=== PATIENT | female | born 1955 | race Caucasian/White ===

== ENCOUNTER → 2020-12-09 12:58 | Outpatient (CLI) | payer OTHER, SELFPAY ==
--- NOTE | ~2020-12-09 | MM_ITS ---
EXAMINATION: MM screening [facility] BI w dominik HISTORY: Screening TECHNIQUE: Craniocaudal and mediolateral oblique 3-D tomosynthesis images were obtained and synthetic 2-D images were generated. CAD analysis was submitted and interpreted. COMPARISON: Comparison to multiple prior studies sequentially, with oldest reviewed study dated 12/01. BREAST PARENCHYMAL COMPOSITION: There are scattered areas of fibroglandular density. FINDINGS: There is no evidence of suspicious mass, calcification, or architectural distortion to sugg est malignancy in either breast. There has been no suspicious interval change. IMPRESSION: 1. No mammographic evidence of malignancy. 2. Recommend routine screening mammography in one year. BI-RADS Category 1: Negative Reviewed, dictated and finalized at location A. ESS PLACER
== END ==
DX: Z12.31 Encounter for screening mammogram for malignant neoplasm of breast (principal)
CPT/HCPCS: 77063; 77067

== ENCOUNTER → 2021-12-11 13:53 | Outpatient (CLI) | payer OTHER, SELFPAY ==
--- NOTE | ~2021-12-11 | MM_ITS ---
EXAMINATION: MM screening [facility] BI w dominik HISTORY: Screening mammogram TECHNIQUE: Craniocaudal and mediolateral oblique 3-D tomosynthesis images were obtained and synthetic 2-D images were generated. CAD analysis was submitted and interpreted. COMPARISON: 12/09/2020, 11/23/2018, 11/08/2017 BREAST PARENCHYMAL COMPOSITION: The breasts are almost entirely fatty. FINDINGS: There is no evidence of suspicious mass, calcification, or architectural distortion to sugg est malignancy in either breast. There has been no suspicious interval change. IMPRESSION: 1. No mammographic evidence of malignancy. 2. Recommend routine screening mammography in one year. BI-RADS Category 1: Negative Reviewed, dictated and finalized at location A. CTED ITEMS CLERK
== END ==
PROVIDERS: PCP Nurse Practitioner Family; Visit Provider Nurse Practitioner Family
DX: Z12.31 Encounter for screening mammogram for malignant neoplasm of breast (principal)
CPT/HCPCS: 77063; 77067

== ENCOUNTER 2022-04-14 13:55 | Outpatient (RCR) | payer OTHER, SELFPAY ==
[2022-04-14 14:04] VITALS: BP 142/76; PULSE 82; RESP 20; TEMP 36.4; O2SAT 96
[2022-04-14] MEDS: diphenhydrAMINE HCl CAP 25 MG CAPSULE PO (14:08)
[2022-04-14] MEDS: FAMOTIDINE 20 MG TABLET PO (14:08)
[2022-04-14] MEDS: ACETAMINOPHEN 325 MG TABLET 650 MG PO (14:08)
[2022-04-14] MEDS: BEBTELOVIMAB 175 MG/2 ML VIAL IV PUSH (14:29)
[2022-04-14 15:15] VITALS: BP 144/74; PULSE 66; O2SAT 100
== END 2022-04-14 16:00 ==
LOC: AMCINF 13:55
PROVIDERS: PCP Family Medicine; Visit Provider Internal Medicine Hematology & Oncology
DX: U07.1 COVID-19 (principal); I10 Essential (primary) hypertension; J44.9 Chronic obstructive pulmonary disease, unspecified
CPT/HCPCS: A9270; M0222; Q0222

== ENCOUNTER 2022-10-18 12:28 | Emergency (ER) | payer OTHER, SELFPAY ==
--- NOTE | ~2022-10-18 | XR_ITS ---
XR chest 2V 10/18/2022 13:22 Indication: Shortness of breath. COPD. Cough. Procedure: 2 view chest Comparison: 12/23/2013 Findings: Heart size normal. There is a healed left eighth rib fracture. No focal air space disease, pulmonary edema, pleural effusion or suspected pneumothorax. The lungs are hyperinflated which is con sistent with, but not diagnostic of chronic obstructive pulmonary disease. Impression: 1: No acute cardiopulmonary disease. Reviewed, dictated and finalized at location A. USEMENT RIDE INSPECTOR Impression: 1: No acute cardiopulmonary disease.
[2022-10-18 12:43] VITALS: BP 135/76; PULSE 90; RESP 18; TEMP 36.7; O2SAT 96
--- NOTE | 2022-10-18 12:46 | ED.GENADULT ---
HPI - General Adult General Chief complaint: Upper Respiratory Infection Stated complaint: congestion Time Seen by Provider: 10/18/22 12:46 Source: patient Mode of arrival: ambulatory Limitations: no limitations History of Present Illness HPI narrative: 67-year-old female patient presents to the [facility] with complaints of cold symptoms for the past week. Patient states she does have a history of COPD and has had a cough, congestion, sinus drainage, sore throat, slight shortness of breath. Patient states she has been using her regular COPD inhalers and did take an aspirin use Robitussin 1 time today since symptoms started otherwise really has not been treating her symptoms with any type of [id number] medication. Patient states she did test herself on the for COVID and was negative. Patient's denies any fevers but states she has just been feeling more tired than normal and just not feeling well. Related Data Home Medications Medication Instructions Recorded Confirmed omeprazole 20 mg tablet,delayed 20 mg PO DAILY 07/15/20 10/18/22 release buspirone 10 mg tablet 5 mg PO BID PRN Anxiety 10/18/22 10/18/22 Allergies Allergy/AdvReac Type Severity Reaction Status Date / Time Penicillins Allergy Unknown Dermatitis Verified 10/18/22 12:46 Review of Systems Review of Systems: CONSTITUTIONAL: Denies fever, chills, or sweats. EYES: Denies visual changes, redness, or discharge. ENT: Positive rhinorrhea, congestion, sore throat, denies otalgia. CARDIOVASCULAR: Denies chest pain, palpitations, or edema. RESPIRATORY: positive cough with dyspnea. GASTROINTESTINAL: Denies abdominal pain, nausea, vomiting, or diarrhea. GENITOURINARY: Denies dysuria or hematuria. SKIN: Denies rash or itching. MUSCULOSKELETAL: Denies back pain, joint pain, or myalgia. NEUROLOGIC: Denies headache, numbness, or weakness. PSYCHIATRIC: Denies anxiety or depression. [facility] Past Medical History Medical History BMI 29.0-29.9,adult BMI 30.0-30.9,adult Breast cancer screening normal mammogram 12/11/2021 with recheck in 1 year Chronic depression Colon cancer screening COVID-19 (04/11/22) fully vaccinated and tested positive at home at onset of symptoms 04/11/2022. Patient not a candidate for Paxlovid because of moderate to severe interactions to 5 of her current medicines. Encounter for wellness examination in adult Essential (primary) hypertension Intermittent palpitations Obesity (BMI 30.0-34.9) Osteopenia after menopause DEXA scan -1.9 of the lumbar spine and -1.2 left hip 07/23/2022. UTI (urinary tract infection) Family History Family History Father Hypertension Mother Family history of pancreatic disease, Onset Age: 82 Social History Social History Smoking status: Former smoker Alcohol intake: never Substance use: never Substance use type: does not use Comments At the time of my signature I agree with nursing past medical history, surgical, social, and family history. There is no relevant family history pertinent to the presenting complaint. Exam Narrative: GENERAL: Well-appearing, well-nourished, and in no acute distress. HEAD: Normocephalic, atraumatic. EYES: PERRLA and EOMI. ENT: Nares clear, no rhinorrhea or epistaxis. Mucous membranes moist. posterior pharynx with slight erythema. No tonsillar enlargement, no exudates or lesions present. Bilateral TMs are clear with no erythema or foreign bodies the canal. NECK: Supple. No lymphadenopathy CHEST: Patient's lung sounds are decreased to the left upper and lower lobes.. No respiratory distress. HEART: Regular rate and rhythm. No murmur heard. Normal peripheral pulses. ABDOMEN: Soft, nontender, nondistended, normal active bowel sounds. EXTREMITIES: Normal range of motion. No edema. SKIN:
[2022-10-18] MEDS: ALBUTEROL SULFATE NEB 2.5 MG/3 ML INH INHALATION (13:13)
[2022-10-18] MEDS: IPRATROPIUM BR 0.02% INH SOLN 0.5 MG/2.5 ML VIAL INHALATION (13:26)
== END 2022-10-18 13:56 | disposition home or self-care (01) ==
PROVIDERS: Emergency Provider Nurse Practitioner Family; PCP Family Medicine
DX: J06.9 Acute upper respiratory infection, unspecified (principal); I10 Essential (primary) hypertension; M85.88 Other specified disorders of bone density and structure, other site; Z86.16 Personal history of COVID-19; Z87.891 Personal history of nicotine dependence; F32.A Depression, unspecified
CPT/HCPCS: 71046; 87081; 87147; 87426; 87804; 87880; 94640; 99213; C9803; G0463

== ENCOUNTER → 2023-02-11 14:54 | Outpatient (CLI) | payer OTHER, SELFPAY ==
--- NOTE | ~2023-02-11 | MM_ITS ---
EXAMINATION: MM screening [facility] BI w dominik HISTORY: Screening mammogram TECHNIQUE: Craniocaudal and mediolateral oblique 3-D tomosynthesis images were obtained and synthetic 2-D images were generated. CAD analysis was submitted and interpreted. COMPARISON: 12/11/2021, 12/09/2020, 11/23/2018 BREAST PARENCHYMAL COMPOSITION: The breasts are almost entirely fatty. FINDINGS: No suspicious mass, calcification, or architectural distortion are identified in either marita ast to suggest malignancy. There has been no suspicious interval change. IMPRESSION: 1. No mammographic evidence of malignancy. 2. Recommend routine screening mammography in one year. BI-RADS Category 1: Negative Reviewed, dictated and finalized at location A.
== END ==
PROVIDERS: PCP Family Medicine; Visit Provider Nurse Practitioner Family
DX: Z12.31 Encounter for screening mammogram for malignant neoplasm of breast (principal)
CPT/HCPCS: 77063; 77067

== ENCOUNTER 2024-05-23 16:19 | Outpatient (CLI) | payer OTHER, SELFPAY ==
--- NOTE | ~2024-05-23 | MM_ITS ---
EXAMINATION: MM screening [facility] BI w dominik HISTORY: Screening TECHNIQUE: Craniocaudal and mediolateral oblique 3-D tomosynthesis images were obtained and synthetic 2-D images were generated. CAD analysis was submitted and interpreted. COMPARISON: Comparison to multiple prior studies sequentially, with oldest reviewed study dated 12/01. BREAST PARENCHYMAL COMPOSITION: Not Dense: The breasts are almost entirely fatty. FINDINGS: There is no evidence of suspicious mass, calcification, or architectural distortion to sugg est malignancy in either breast. There has been no suspicious interval change. IMPRESSION: 1. No mammographic evidence of malignancy. 2. Recommend routine screening mammography in one year. BI-RADS Category 1: Negative Reviewed, dictated and finalized at location B.
== END 2024-05-23 16:20 ==
LOC: MICIMG 16:19
PROVIDERS: PCP Family Medicine; Visit Provider Nurse Practitioner Family
DX: Z12.31 Encounter for screening mammogram for malignant neoplasm of breast (principal)
CPT/HCPCS: 77063; 77067

== ENCOUNTER 2025-06-18 15:24 | Outpatient (CLI) | payer OTHER, SELFPAY ==
--- NOTE | ~2025-06-18 | MM_ITS ---
EXAMINATION: MM screening [facility] BI w dominik HISTORY: Screening TECHNIQUE: Craniocaudal and mediolateral oblique 3-D tomosynthesis images were obtained and synthetic 2-D images were generated. CAD analysis was submitted and interpreted. COMPARISON: Comparison to multiple prior studies sequentially, with oldest reviewed study dated , 11/23/2018 BREAST PARENCHYMAL COMPOSITION: The breasts are almost entirely fatty. FINDINGS: There is no evidence of suspicious mass, calcification, or architectural distortion to suggest malignancy in either breast. IMPRESSION: 1. No mammographic evidence of malignancy. 2. Recommend routine screening mammography in one year. BI-RADS Category 1: Negative Reviewed, dictated and finalized at location B.
== END 2025-06-18 15:25 | disposition home or self-care (01) ==
LOC: MICIMG 15:25
PROVIDERS: PCP Family Medicine; Visit Provider Nurse Practitioner Family
DX: Z12.31 Encounter for screening mammogram for malignant neoplasm of breast (principal)
CPT/HCPCS: 77063; 77067

== ENCOUNTER 2025-09-16 22:50 | Inpatient (IN) | payer MEDICARE, OTHER, SELFPAY ==
[2025-09-16] VITALS (7 sets, daily range): BP systolic 132–145; BP diastolic 55–93; PULSE 86–101; RESP 20–28; O2SAT 94–98
--- NOTE | ~2025-09-16 | XR_ITS ---
EXAMINATION: XR chest 1V portable DATE: 09/21/2025 14:46 INDICATION: Status post bronchoscopy TECHNIQUE: frontal view of the chest was obtained. COMPARISON: Chest radiograph dated 09/21/2025 FINDINGS: Linear band of discoid atelectasis/scarring at the junction of the right mid to lower lung zones with additional streaky discoid atelectasis left lung base. No other airspace opacities, pulmonary edema, pleural effusion or pneumothorax. The cardiomediastinal silhouette is normal. Chronic posterior left eighth rib fracture. IMPRESSION: 1. Mild discoid atelectasis in the bilateral lower lungs. Reviewed, dictated and finalized at location A. L BASTER
--- NOTE | ~2025-09-16 | CT_ITS ---
EXAMINATION: CTA chest PE protocol DATE: 09/20/2025 14:56 INDICATION: Rule out PE TECHNIQUE: Computed tomography angiography (CTA) of the chest was performed with 100 mL Omnipaque-350 intravenous contrast timed to evaluate the pulmonary arteries. Coronal maximum intensity projection 3D-reconstructions were created by the technologist. The dose-length product was 440.00 mGy-cm. COMPARISON: September 17, 2025 FINDINGS: No pulmonary emboli or thoracic aortic aneurysm/dissection. Heart size normal. Trace pericardial effusion. Coronary artery calcifications noted. Moderate to severe diffuse centrilobular emphysematous changes of the lungs. 10 mm mucus appearing focus or sludge ball is present in the right lower lobe bronchus, image 60 series 4. Small amount of mucus also present in the tracheal air column. Airways otherwise are patent. No consolidation effusion or pneumothorax. No focal acute process seen in the visualized portions of the upper abdomen. Cholecystectomy clips. Degenerative changes throughout the bones. IMPRESSION: 1. No pulmonary emboli or thoracic aortic aneurysm/dissection. 2. Severe emphysematous changes in the lungs. 10 mm nonobstructing soft tissue focus in the right lower lobe bronchus probably representing mucoid sludge ball. Polypoid lesion however is not excluded. Reviewed, dictated and finalized at location A. FINISH MILL OPERATOR IMPRESSION: 1. No pulmonary emboli or thoracic aortic aneurysm/dissection. 2. Severe emphysematous changes in the lungs. 10 mm nonobstructing soft tissue focus in the right lower lobe bronchus probably representing mucoid sludge ball . Polypoid lesion however is not excluded.
--- NOTE | ~2025-09-16 | XR_ITS ---
EXAMINATION: XR chest 1V portable DATE: 09/19/2025 13:38 INDICATION: Shortness of breath TECHNIQUE: A single frontal view of the chest was obtained. COMPARISON: September 16, 2025 FINDINGS: Mild bibasilar infiltrative changes not clearly changed from the previous exam. Upper lung dawkins clear. Heart size normal. IMPRESSION: 1. No gross interval change in bibasilar markings which could represent chronic interstitial lung disease versus patchy areas of developing pneumonitis/pneumonia. Reviewed, dictated and finalized at location A. OR TECHNICAL ARCHITECT IMPRESSION: 1. No gross interval change in bibasilar markings which could represent chronic interstitial lung disease versus patchy areas of developing pneumonitis/pneumo reji.
--- NOTE | ~2025-09-16 | XR_ITS ---
EXAMINATION: XR chest 1V portable COMPARISON: No comparisons available. HISTORY: COPD FINDINGS: The lungs are clear, no effusion. No pneumothorax. Heart is normal size. Mediastinal and hilar contours are within normal limits. Bony thorax no acute abnormality. Miscellaneous: None Impression: No acute cardiopulmonary abnormality. Reviewed, dictated and finalized at location P. SPORT AIRCREWMAN Impression: No acute cardiopulmonary abnormality.
--- NOTE | ~2025-09-16 | CT_ITS ---
EXAMINATION:CT diagnostic chest wo con DATE: 09/17/2025 02:40 INDICATION: Shortness of breath TECHNIQUE: Computed tomography (CT) of the chest was performed without intravenous contrast. The dose-length product (DLP) was 263.77 mGy-cm. COMPARISON: December 23, 2013 FINDINGS: Advanced emphysematous changes throughout the lungs noted with no consolidation effusion or pneumothorax. Mild scattered interstitial prominence noted but no evidence of architectural distortion, bronchiectasis, air cysts formation or advanced fibrotic changes. Scattered benign-appearing calcified small granulomas nodules. Heart and great vessels normal size with no bulky lymphadenopathy. Central large airways patent. The bones appear intact. No acute abnormality seen in the visualized portions of the upper chest or extrathoracic soft tissues. IMPRESSION: 1. Advanced emphysematous changes in the lungs. 2. No gross acute intrathoracic process identified. NOTE: Preliminary radiology report provided by [facility] radiologist. Reviewed, dictated and finalized at location A. ORATE CONCIERGE
--- NOTE | ~2025-09-16 | XR_ITS ---
EXAMINATION: XR chest 1V portable DATE: 09/16/2025 23:32 INDICATION: Shortness of breath TECHNIQUE: frontal view of the chest was obtained. COMPARISON: Chest radiograph dated 10/18/2022 FINDINGS: No significant change in linear discoid atelectasis in the right mid and left lower lung zones. No new airspace opacities, pulmonary edema, pleural effusion or pneumothorax. The cardiomediastinal silhouette is normal. Old left-sided rib fracture. IMPRESSION: 1. Chronic linear discoid atelectasis/scarring the right mid and left lower lung zones. Reviewed, dictated and finalized at location A. DIRECTOR IMPRESSION: 1. Chronic linear discoid atelectasis/scarring the right mid and left lower nikky g zones.
--- NOTE | 2025-09-16 22:54 | ECG_ITS ---
Test Date: 2025-09-16 23:00:51 Measurements Intervals [place] Rate: 93 P: 70 UT: 150 QRS: 38 QRSD: 81 T: 52 QT: 333 QTc: 415 Interpretive Statements SINUS RHYTHM WITH SINUS ARRHYTHMIA LOW QRS VOLTAGE IN PRECORDIAL LEADS ANTERIOR INFARCT, AGE INDETERMINATE BORDERLINE ST-T WAVE ABNORMALITY- INF/HIGH LAT LEADS BASELINE ARTIFACT- I, II, III, AVR, AVL, AVF, V1-V6 ABNORMAL ECG No previous ECG available for comparison Electronically Signed On 09-17-2025 06:01:30 APPLICATIONS PACKAGER by Bon Rosa D.O.
[2025-09-16 23:03] LABS: Alveolar/Arterial O2 Gradient 396.9 mmHg; Fractional Inspired Oxygen 80 %; HCO3 ABG 22.3 mEq/l (22.0-26.0); Oxygen Content ABG 20.2 %vol (16.0-22.0); Oxygen Saturation ABG 98.3 % (95.0-100.0); PCO2 ABG 43.4 mmHg (35.0-45.0); PO2 ABG 127.9 mmHg (80.0-100.0); PO2 FiO2 Ratio Arterial Blood 1.60 %
--- NOTE | 2025-09-16 23:18 | ED_ITS ---
HPI - SOB/Dyspnea General Chief Complaint: Shortness of Breath/Dyspnea Stated Complaint: resp distress Time Seen by Provider: 09/16/25 23:07 Source: patient and EMS Mode of arrival: ambulatory Limitations: no limitations History of Present Illness HPI Narrative: Patient is a 70-year-old female presents to the emergency department via EMS complaining of shortness of breath. Patient notes about 24 hours ago she accidentally inhaled which she believes was corn and since been having difficulty breathing and seems to be getting progressively worse. Patient notes that she has COPD and does not bother her too much, is not on any home oxygen on a regular basis, just uses breathing treatments as needed. Patient admits to a cough. Patient denies any history of heart failure or heart disease. Denies history of blood clots. Denies any known fevers. Patient was brought in on CPAP. Denies wearing CPAP at home. Denies history of intubation. Notes that she does want intubation if it was to come to it. Related Data Allergies Allergy/AdvReac Type Severity Reaction Status Date / Time Penicillins Allergy Intermediate Rash Verified 09/16/25 23:41 Review of Systems 2 Review of Systems: A 10 system review of systems was completed on the patient and is negative except for what is stated in the HPI. Nursing and ancillary documentation was reviewed. Exam 2 Narrative: CONST: Mild respiratory distress, on nasal cannula. HENMT: Head is normocephalic and atraumatic. Tacky mucous membranes. No posterior oropharynx erythema. EYES: No scleral icterus. No conjunctival injection or pallor. PERRL. NECK: No meningeal signs. RESP: Tachypnea, conversational dyspnea, diffusely diminished breath sounds, moderately prolonged expiratory phase. CARDIO: Borderline tachycardic rate. Regular rhythm. 2+ DP and radial pulses bilaterally. GI: Nondistended. No tenderness to palpation. Soft. : No CVA tenderness to palpation. SKIN: No rashes or lesions noted on exposed skin. NEURO: Oriented x3. Moves all extremities. EXTREM/MSK/BACK: No pedal edema. PSYCH: Normal affect. Course Vital Signs Vital signs: Vital Signs Pulse Rate 101 H 09/16/25 22:55 Respiratory Rate 23 H 09/16/25 22:55 Blood Pressure 145/93 H 09/16/25 22:55 Pulse Oximetry 98 09/16/25 22:55 Oxygen Delivery CPAP 09/16/25 22:55 Pulse Rate 111 H 09/17/25 02:45 Respiratory Rate 24 H 09/17/25 02:45 Blood Pressure 133/81 09/17/25 02:01 Pulse Oximetry 96 09/17/25 02:45 Oxygen Delivery BiPAP 09/16/25 23:55 Oxygen Flow Rate 4 09/16/25 23:53 Fraction of Inspired Oxygen 30 09/16/25 23:55 [facility] Narrative Medical decision making narrative: Patient presents with the above complaint. Initial vitals are remarkable for tachycardia, tachypnea. Patient arrived on CPAP, RT transitioned the patient down to 5 L of supplemental oxygen via nasal cannula. Physical examination as noted above. Plan discussed: laboratory analysis, EKG, imaging. Patient ordered IVF, BiPAP, breathing treatments, Solu-Medrol, empiric antibiotics, continuous cardiac monitoring, continuous pulse oximetry. Chest x-ray preliminary findings radiology interpretation is heart is normal size. There are bibasilar interstitial infiltrates. These may be chronic in nature. Recommend old film comparison. CT of the chest without contrast preliminary findings radiology interpretation reveals there is a pattern of interstitial lung disease present. No consolidation is noted. There are emphysematous changes. The heart is not enlarged but contains coronary artery calcifications. There is a small pericardial effusion. I spoke with the hospitalist on-call who has accepted the patient for admission. Differential Diagnosis Differential Diagnosis: Aspiration pneumonia, pneumonia, COPD exacerbation, heart failure, ACS, pneumothorax, aspirated foreign body. Lab Data [facility] Lab Attestation statement: I personally reviewed the patient's lab results. Lab results narrative: CBC reveals a white blood cell count of 13.1. Coags are within normal limits. CMP reveals a chloride of 108, glucose 183. Lipase is 19. Procalcitonin is 0.0. BNP is 171. CRP is less than 0.5. Troponin is less than 0.012. Magnesium is 3.2. Lactic acid of 1.3. COVID and influenza and RSV testing are negative. Urinalysis is unremarkable. 09/16/25 23:46 09/16/25 23:46 Labs: Lab Results 09/16/25 09/17/25 Range/Units 23:46 01:14 WBC 13.1 H (4.5-10.0) K/mm3 RBC 4.13 L (4.2-5.4) M/mm3 Hgb 13.2 (12.0-15.0) g/dL Hct 39.7 (37.0-47.0) % MCV 96.1 (80-100) fl MCH 32.0 (26-34) pg MCHC 33.2 (32-36) g/dl RDW 12.9 (11.5-14.5) % Plt Count 304 (150-375) k/mm3 MPV 8.5 (7.4-10.4) fl Immature Gran % (Auto) 0.9 H (0-0.5) % Neut % (Auto) 87.7 H (45.5-73.1) % Lymph % (Auto) 6.8 L (18.3-44.2) % Mills % (Auto) 4.4 (2.6-8.5) % Eos % (Auto) 0.0 (0-4.4) % Baso % (Auto) 0.2 (0.2-1.2) % Lymph # (Auto) 0.89 L (0.9-3.2) K/mm3 Mills # (Auto) 0.6 (0.1-0.6) K/mm3 Eos # (Auto) 0.0 (0-0.3) K/mm3 Baso # (Auto) 0.0 (0.0-0.1) K/mm3 Abs Immat Gran (auto) 0.12 H (0.00-0.031) K/mm3 Absolute Neuts (auto) 11.5 H (1.3-6.7) K/mm3 Absolute Nucleated RBC 0.000 (0.0-0.012) K/mm3 Nucleated RBC % 0.0 (0.0-0.2) % PT 14.0 (11.1-14.7) Seconds INR 1.1 APTT 30.9 (22.3-36.8) Seconds Sodium 137 (137-145) mmol/L Potassium 4.3 (3.4-5.0) mmol/L Chloride 108 H (98-107) mmol/L Carbon Dioxide 22 (22-30) mmol/L Anion Gap 7 (4-12) mmol/L BUN 14 (7-17) mg/dL Creatinine 0.54 L (0.7-1.0) mg/dL Estim Creat Clear Calc 66 ml/min Estimated GFR > 60 (59 - ) Glucose 183 H (65-110) mg/dL Lactic Acid 1.3 (0.7-2.0) mmol/L Calcium 8.7 (8.4-10.2) mg/dL Magnesium 3.2 H (1.6-2.3) mg/dL Total Bilirubin 0.6 (0.2-1.3) mg/dL AST 28 (14-36) U/L ALT 26 (6-35) U/L Alkaline Phosphatase 95 (38-126) U/L Troponin I < 0.012 (0.000-0.034) ng/mL C-Reactive Protein < 0.5 (<1.0) mg/dL NT-Pro-B Natriuret Pep 171 H (19.9-100) pg/mL Total Protein 7.6 (6.3-8.2) g/dL Albumin 4.4 (3.5-5.1) g/dL Lipase 19 L (23-300) U/L Procalcitonin 0.0 ng/mL TSH (Reflex) Cancelled Urine Color Yellow (Yellow) Urine Appearance Clear (Clear) Urine pH 6.5 (5.0-9.0) Ur Specific Buckley 1.007 (1.001-1.035) Urine Protein Trace (Negative) mg/dL Urine Glucose (UA) Negative (Negative) mg/dL Urine Ketones Negative (Negative) mg/dL Ur Blood (Man) Negative (Negative) Urine Nitrate Negative (Negative) Urine Bilirubin Negative (Negative) Urine Urobilinogen 0.2 (<2.0) mg/dL Leukocyte Esterase Rfl Negative (Negative) TATUM/UL Urine RBC 0-2 (0-2) /hpf Urine WBC 0-5 (0-3) /hpf Ur Squamous Epith Cells None seen (Few) /hpf Urine Bacteria None seen /hpf Urine Casts 0-2 Influenza A (RT-PCR) Negative (Negative) Influenza B (RT-PCR) Negative (Negative) RSV (RT-PCR) Negative (Negative) SARS-CoV-2 RNA (RT-PCR) Negative (Negative) ABG Data ABG results: 09/16/25 22:55 ABG pH 7.329 L ABG pCO2 43.4 ABG pO2 127.9 H ABG PO2/FiO2 Ratio 1.60 ABG HCO3 22.3 ABG O2 Saturation 98.3 ABG O2 Content 20.2 ABG Base Excess -3.6 A-a Gradient 396.9 Oxyhemoglobin 97.1 Total Hemoglobin 14.7 FiO2 80 Attestation: I personally reviewed and interpreted this ABG as follows: Interpretation: PH is slightly low at 7.329, PaO2 is 127.9, pCO2 is 43.4, bicarb is 22.3, on 80% FiO2. ECG Data EKG #1: Attestation: I personally reviewed and interpreted this ECG as follows: ECG completion date: 09/16/25 ECG completion time: 23:00 Interpretation: Pre of 93, rhythm is sinus rhythm with sinus arrhythmia, axis is normal, no ST elevations or depressions, nonspecific T-wave abnormality, Q-waves present in leads V3 and V4, no previous EKG on file. Critical Care Time Critical Care Time Critical Care Time: Yes Indication: Acute respiratory failure, sepsis Time Type: Intermittent Initial evaluation, discuss w/ involved parties, attempting to gather old records: 10 minutes Documenting medical record: 5 minutes Review of results (EKG's, labs, imaging): 5 minutes Serial repeat bedside evaluation: 10 minutes Discussing case with multiple memebers of the care team and consultants: 5 minutes Total Critical Care Time: 35 Discharge Plan Discharge Clinical Impression: Sepsis, Acute respiratory failure, Aspiration into lower respiratory tract, COPD (chronic obstructive pulmonary disease) Patient Disposition: Still a Patient Condition: Serious Patient Language: Chilean Follow-up/Referrals: Troy Toro MD [Primary Care Provider, [facility]] Time of Disposition: 03:32
--- NOTE | 2025-09-16 23:34 | PC.NURSE ---
Report received from TOSHIA Acosta. Assumed care of patient at this time.
[2025-09-16] MEDS: Please add drug allergy info to patient profile. 1 EACH XX (23:54)
--- NOTE | 2025-09-16 23:56 | PC.NURSE ---
Patient requested to have her home alprazolam. ERP notified and states okay for patient to take her home med.
--- OUTSIDE RECORDS SUMMARY | 2025-09-16 23:56 | XMS_ITS | Encounter Summary ---
Author Organization [facility] Address [address] [place] [address] Care Team Providers Care Biometrics Specialist Name Role Phone Jose Villeda MD Primary Care Provider [phone] Encounter Details Date Type Department Care Team (Late st Contact Info) Description 12/20/2000 Outpatient Historical [facility] WASTE OIL PUMPER - Medical [facility] [address] [place] [address] Alexsander Chavez MD [id number] [place] [address] Social History Tobacco Use Types Packs/Day Years Used Date Smoking Tobacco: Never Assessed Comments Unknown Sex and Gender Information Value Date Recorded Sex Assigned at Not on file Legal Sex Female 4:23 AM HEALTHCARE ADMINISTRATION INTERNSHIP Gender Identity Not on file Sexual Orientation Not on file documented as of this encounter Plan of Treatment Not on file documented as of this encounter Visit Diagnoses Not on filedocumented in this encounter Care Teams Biometrics Specialist Relationship Specialty Start Date End Date Jose Villeda MD [address] [place] [address] PCP - General Family Practice 10/06/16 documented as of this encounter
--- OUTSIDE RECORDS SUMMARY | 2025-09-16 23:56 | XMS_ITS | Encounter Summary ---
Author Organization [facility] Address [address] [place] [address] Care Team Providers Care Cma Or Lpn Name Role Phone Jose Villeda MD Primary Care Provider [phone] Encounter Details Date Type Department Care Team (Late st Contact Info) Description 06/06/2003 Outpatient Historical [facility] SINGING TELEGRAM PERFORMER - [address] [place] [address] Alexsander Chavez MD [address] [facility] [address] [address] Social History Tobacco Use Types Packs/Day Years Used Date Smoking Tobacco: Never Assessed Comments Unknown Sex and Gender Information Value Date Recorded Sex Assigned at Not on file Legal Sex Female 4:23 AM MUSEUM INFORMATICS SPECIALIST Gender Identity Not on file Sexual Orientation Not on file documented as of this encounter Plan of Treatment Not on file documented as of this encounter Visit Diagnoses Not on filedocumented in this encounter Care Teams Cma Or Lpn Relationship Specialty Start Date End Date Jose Villeda MD [address] [place] [phone] PCP - General Family Practice 10/06/16 documented as of this encounter
--- OUTSIDE RECORDS SUMMARY | 2025-09-16 23:56 | XMS_ITS | Encounter Summary ---
Author Organization [facility] Address [address] [place] [address] Care Team Providers Care Softball Player Name Role Phone Jose Villeda MD Primary Care Provider [phone] Encounter Details Date Type Department Care Team (Late st Contact Info) Description 05/31/2006 Outpatient Historical [facility] INVESTMENT REPRESENTATIVE - [address] [place] [address] Alexsander Chavez MD [address] [facility] [address] [address] Social History Tobacco Use Types Packs/Day Years Used Date Smoking Tobacco: Never Assessed Comments Unknown Sex and Gender Information Value Date Recorded Sex Assigned at Not on file Legal Sex Female 4:23 AM PATHOLOGY LAB TECHNICIAN Gender Identity Not on file Sexual Orientation Not on file documented as of this encounter Plan of Treatment Not on file documented as of this encounter Visit Diagnoses Not on filedocumented in this encounter Care Teams Softball Player Relationship Specialty Start Date End Date Jose Villeda MD [address] [place] [phone] PCP - General Family Practice 10/06/16 documented as of this encounter
--- OUTSIDE RECORDS SUMMARY | 2025-09-16 23:56 | XMS_ITS | Encounter Summary ---
Author Organization [facility] Address [address] [place] [address] Care Team Providers Care Drop Hammer Operator Helper Name Role Phone Jose Villeda MD Primary Care Provider [phone] Encounter Details Date Type Department Care Team (Late st Contact Info) Description 02/15/2002 Outpatient Historical [facility] EXPEDITIONARY FORCE COMBAT SKILLS - Medical [facility] [address] [place] [address] Alexsander Chavez MD [id number] [place] [address] Social History Tobacco Use Types Packs/Day Years Used Date Smoking Tobacco: Never Assessed Comments Unknown Sex and Gender Information Value Date Recorded Sex Assigned at Not on file Legal Sex Female 4:23 AM AUTO ADJUDICATION SPECIALIST Gender Identity Not on file Sexual Orientation Not on file documented as of this encounter Plan of Treatment Not on file documented as of this encounter Visit Diagnoses Not on filedocumented in this encounter Care Teams Drop Hammer Operator Helper Relationship Specialty Start Date End Date Jose Villeda MD [address] [place] [address] PCP - General Family Practice 10/06/16 documented as of this encounter
--- OUTSIDE RECORDS SUMMARY | 2025-09-16 23:56 | XMS_ITS | Encounter Summary ---
Author Organization [facility] Address [address] [place] [address] Care Team Providers Care Salt Refiner Name Role Phone Jose Villeda MD Primary Care Provider [phone] Encounter Details Date Type Department Care Team (Late st Contact Info) Description 09/05/2007 Outpatient Historical [facility] ELECTRICAL HARDWARE ENGINEER - [address] [place] [address] Alexsander Chavez MD [address] [facility] [address] [address] Social History Tobacco Use Types Packs/Day Years Used Date Smoking Tobacco: Never Assessed Comments Unknown Sex and Gender Information Value Date Recorded Sex Assigned at Not on file Legal Sex Female 4:23 AM PAYMENT POSTER Gender Identity Not on file Sexual Orientation Not on file documented as of this encounter Plan of Treatment Not on file documented as of this encounter Visit Diagnoses Not on filedocumented in this encounter Care Teams Salt Refiner Relationship Specialty Start Date End Date Jose Villeda MD [address] [place] [phone] PCP - General Family Practice 10/06/16 documented as of this encounter
--- OUTSIDE RECORDS SUMMARY | 2025-09-16 23:56 | XMS_ITS | Encounter Summary ---
Author Organization [facility] Address [address] [place] [address] Care Team Providers Care Peoplesoft Hcm Developer Name Role Phone Jose Villeda MD Primary Care Provider [phone] Encounter Details Date Type Department Care Team (Late st Contact Info) Description 05/25/2005 Outpatient Historical [facility] INDUSTRIAL SAFETY ENGINEER - [address] [place] [address] Alexsander Chavez MD [address] [facility] [address] [address] Social History Tobacco Use Types Packs/Day Years Used Date Smoking Tobacco: Never Assessed Comments Unknown Sex and Gender Information Value Date Recorded Sex Assigned at Not on file Legal Sex Female 4:23 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
--- OUTSIDE RECORDS SUMMARY | 2025-09-16 23:56 | XMS_ITS | Encounter Summary ---
Author Organization [facility] Address [address] [place] [address] Care Team Providers Care Slide Fasteners Inspector Name Role Phone Jose Villeda MD Primary Care Provider [phone] Encounter Details Date Type Department Care Team (Late st Contact Info) Description 12/08/1999 Outpatient Historical [facility] MENTAL HEALTH THERAPIST - Medical [facility] [address] [place] [address] Alexsander Chavez MD [address] [place] [address] Social History Tobacco Use Types Packs/Day Years Used Date Smoking Tobacco: Never Assessed Comments Unknown Sex and Gender Information Value Date Recorded Sex Assigned at Not on file Legal Sex Female 4:23 AM AMERICAN SIGN LANGUAGE INTERPRETER Gender Identity Not on file Sexual Orientation Not on file documented as of this encounter Plan of Treatment Not on file documented as of this encounter Visit Diagnoses Not on filedocumented in this encounter Care Teams Slide Fasteners Inspector Relationship Specialty Start Date End Date Jose Villeda MD [address] [place] [address] PCP - General Family Practice 10/06/16 documented as of this encounter
--- OUTSIDE RECORDS SUMMARY | 2025-09-16 23:56 | XMS_ITS | Clinical Summary ---
Author Organization [facility] Address [address] [place] [address] Care Team Providers Care Director Service Name Role Phone Jose Villeda MD Primary Care Provider Allergies Active Allergy Reactions Criticality Noted Date Comments Penicillins Unknown 11/25/2009 Medications CALCIUM/FA/MULTIVIT S-MIN (VIACTIV MULTI-VITAMIN PO) Take 1 Tab by mouth daily. Active SPIRIVA WITH HANDIHALER 18 mcg capsule 7 Active metoprolol succinate (TOPROL XL) 50 mg Extended Release 24 hour tablet TAKE 1 TABLET BY MOUTH EVERY DAY 4 7 Active DALIRESP 500 mcg Tablet 7 Active PROAIR HFA 90 mcg/actuation inhaler 8 Active ADVAIR DISKUS 500-50 mcg/dose disk inhaler 8 Active SYNTHROID 75 mcg tablet 8 Active busPIRone (BUSPAR) 10 mg tablet TAKE 1 TABLET BY MOUTH TWICE DAILY 1 Active flu vaccine quadrivalent 2018- (36 mo+)(PF)(FLUZONE QUAD) 60 mcg/0.5 mL IM syringe ADM 0.5ML IM UTD 8 Active zoster vaccine recombinant, adjuvanted, RZV, (Shingrix, PF,) 50 mcg/0.5 mL Suspension for Reconstitution ADM 0.5ML IM UTD 8 Active ALPRAZolam (XANAX) 0.5 mg tablet TAKE 1 TABLET BY MOUTH THREE TIMES DAILY NEEDED FOR ANXIETY 1 Active Active Problems No known active problems Immunizations Immunization Administration Dates Next Due (PNEUMOVAX 23)(50 YRS UP) PN EUMOCOCCAL POLYSACCHARIDE (PPV23) 0.5 ML, IM 06/12/2020 (SHINGRIX)(50 YRS UP) ZOSTER VACCINE RECOMBINANT, 0.5 ML, IM 11/15/2018,06/14/2018 (SPIKEVAX) (12 YRS UP PRIMAR Y SERIES) COVID-19 VACCINE - MRNA-1273(PF) 100 MCG/0.5 ML IM SUSP 01/16/2021,12/18/2020 INFLUENZA VACCINE HIGH DOSE QUADRIVALENT 65 YR UP PF IM 06/12/2020 INFLUENZA VACCINE QUADRIVALE NT 6 MOS UP CELL DERIVED PF IM 07/19/2019 Influenza Seasonal Unspecified Formulation IM ,06/14/2018 Pneumococcal 13-li Conj Vacc Patient Supplied 1 Family History Medical History Relation Name Comments Healthy Daughter Samantha Depression Mother Heart Disease Mother Healthy Son Sai Breast Cancer Neg Hx Colon Cancer Neg Hx Ovarian Cancer Neg Hx Relation Name Status Comments Daughter Samantha Alive Father Mother Son Sai Alive Social History Tobacco Use Types Packs/Day Years Used Date Smoking Tobacco: Former Cigarettes Smokeless Tobacco: Never Comments:trying to quit smok es 1 cig a day Alcohol Use Standard Drinks/Week Comments No 0 (1 standard drink = 0.6 oz pur e alcohol) Comments No Sex and Gender Information Value Date Recorded Sex Assigned at Not on file Legal Sex Female 4:23 AM POLE CLASSIFIER Gender Identity Not on file Sexual Orientation Not on file Occupation Industry Job Start Date Job End Date Not on file Not on file Not on file Not on file Last Filed Vital Signs Vital Sign Reading Time Taken Comments Blood Pressure 146/83 02/13/2021 2:04 PM CDT Pulse - - Temperature - - Respiratory Rate - - Oxygen Saturation - - Inhaled Oxygen Concentration - - Weight 67.6 kg (149 lb) 02/13/2021 2:04 PM CDT Height 152.4 cm (5') 02/13/2021 2:04 PM CDT Body Mass Index 29.1 02/13/2021 2:04 PM CDT Plan of Treatment Health Maintenance Due Date Last Done Comments DTAP/TDAP/TD VACCINES (1 - Tdap) 1973 FIT-DNA Q 3 years 1999 FIT/FOBT Q 1 year 1999 Flex Sig/CT Colonography Q 5 years 1999 COLORECTAL SCREENING 06/25/2015 06/25/2005 Colorectal Cancer Screening 06/25/2015 BREAST CANCER SCREENING 12/09/2021 12/10/19 21, 11/23/2018, 11/09/2017, Additional history exists INFLUENZA VACCINE (#1) 2025 0, 06/12/2020, 07/19/2019, Additional history exists COVID-19 Vaccine (3 - 2024-2 6 season) 2025 01/16/2021, 12/18/2020 OSTEOPOROSIS SCREENING 01/01/2026 01/01/2021, 2009 RSV VACCINE (60+ or ) (1 - 1-dose 75+ series) 2029 ZOSTER VACCINE Completed 11/15/2018, 06/14/2018 PNEUMOCOCCAL VACCINE 50+ YEARS Completed 06/12/2020 , 07/19/2019 Procedures Procedure Name Priority Date/Time Associated Diagnosis Comments MAMMO 3D ONI SCREEN BILATERAL MOBILE Routine 12/09/2020 4:51 PM POLE CLASSIFIER XR DEXA BONE DENSITY AXIAL 1 OR MORE SITES Routine 01/03/2010 Special Screening for Osteoporosis from Last 3 Months or Most Recently Relevant to Health Maintenance Results * MAMMO 3D SCREEN BILATERAL MOBILE (12/09/2020 4:51 PM POLE CLASSIFIER) Anatomical Region Laterality Modality Breast Bilateral Mammography us Gricel Oleary MD MAMMO ORDERABLES Edited R esult - Final * XR DEXA BONE DENSITY AXIAL 1 OR MORE SITES (01/03/2010) T-SCORE FEMUR (LEFT) EXTERNAL RADIOLOGY T-SCORE FEMUR (RIGHT) EXTERNAL RADIOLOGY T-SCORE FEMUR >=-0.99 LAW FIRM ADMINISTRATOR AL RADIOLOGY T-SCORE SPINE >=-0.99 LAW FIRM ADMINISTRATOR AL RADIOLOGY T-SCORE HIP (LEFT) EXTERNAL RADIOLOGY T-SCORE HIP (RIGHT) EXTERNAL RADIOLOGY T-SCORE HIP >=-0.99 EXTERNAL RADIOLOGY Anatomical Region Laterality Modality Other Gricel Oleary MD DIAGNOSTIC IMAGING ORDERA BLES Final Result from Last 3 Months or Most Recently Relevant to Health Maintenance Insurance [facility] [employer] PPO [id number] Care Teams Director Service Relationship Specialty Start Date End Date Jose Villeda MD [address] [place] [address] PCP - General Family Practice 10/06/16
--- OUTSIDE RECORDS SUMMARY | 2025-09-16 23:56 | XMS_ITS | Encounter Summary ---
Author Organization [facility] Address [address] [place] [address] Care Team Providers Care Bag Bleacher Name Role Phone Jose Villeda MD Primary Care Provider [phone] Encounter Details Date Type Department Care Team (Late st Contact Info) Description 05/19/2004 Outpatient Historical [facility] CLINICAL ACCOUNT SPECIALIST - [address] [place] [address] Alexsander Chavez MD [address] [facility] [address] [address] Social History Tobacco Use Types Packs/Day Years Used Date Smoking Tobacco: Never Assessed Comments Unknown Sex and Gender Information Value Date Recorded Sex Assigned at Not on file Legal Sex Female 4:23 AM PHYSICAL AERODYNAMICIST Gender Identity Not on file Sexual Orientation Not on file documented as of this encounter Plan of Treatment Not on file documented as of this encounter Visit Diagnoses Not on filedocumented in this encounter Care Teams Bag Bleacher Relationship Specialty Start Date End Date Jose Villeda MD [address] [place] [phone] PCP - General Family Practice 10/06/16 documented as of this encounter
--- OUTSIDE RECORDS SUMMARY | 2025-09-16 23:56 | XMS_ITS | Encounter Summary ---
Author Organization [facility] Address [address] [place] [address] Care Team Providers Care Chief Librarian Branch Name Role Phone Jose Villeda MD Primary Care Provider [phone] Encounter Details Date Type Department Care Team (Late st Contact Info) Description 05/12/2004 Outpatient [facility] HAIR SAMPLE MATCHER - [address] [place] [address] Jonathan Pierre MD [address] [place] [address] Social History Tobacco Use Types Packs/Day Years Used Date Smoking Tobacco: Never Assessed Comments Unknown Sex and Gender Information Value Date Recorded Sex Assigned at Not on file Legal Sex Female 4:23 AM APPLIANCE INSTALLER Gender Identity Not on file Sexual Orientation Not on file documented as of this encounter Plan of Treatment Not on file documented as of this encounter Visit Diagnoses Not on filedocumented in this encounter Care Teams Chief Librarian Branch Relationship Specialty Start Date End Date Jose Villeda MD [address] [place] [phone] PCP - General Family Practice 10/06/16 documented as of this encounter
[2025-09-17] VITALS (64 sets, daily range): BP systolic 116–167; BP diastolic 59–97; PULSE 77–124; RESP 16–50; TEMP 36.2–36.6; O2SAT 92–100; BMI 24.5
[2025-09-17 00:03] LABS: Hematocrit 39.7 % (37.0-47.0); Hemoglobin 13.2 g/dL (12.0-15.0); Immature Granulocyte Percent A 0.9 % (0-0.5); Lymphocytes Absolute Auto 0.89 K/mm3 (0.9-3.2); Mean Corpuscular HGB Conc 33.2 g/dl (32-36); Mean Corpuscular Hemoglobin 32.0 pg (26-34); Mean Corpuscular Volume 96.1 fl (80-100); Nucleated Red Blood Cells Absolute Auto 0.000 K/mm3 (0.0-0.012); Nucleated Red Blood Cells Perc 0.0 % (0.0-0.2); Platelet Count Result 304 k/mm3 (150-375); Red Blood Count 4.13 M/mm3 (4.2-5.4); White Blood Count 13.1 K/mm3 (4.5-10.0)
[2025-09-17] MEDS: SODIUM CHLORIDE 0.9% IV 900 ML 999 ML IV CONT (00:06)
[2025-09-17] MEDS: cefTRIAXone 1 GM in SODIUM CHLORIDE 0.9% IV 50 ML 100 ML IVPB ×2 (00:06→21:07)
[2025-09-17] MEDS: SODIUM CHLORIDE 0.9% IV 1,000 ML 999 ML IV CONT (00:06)
[2025-09-17 00:14] LABS: Alanine Aminotransferase 26 U/L (6-35); Albumin Level 4.4 g/dL (3.5-5.1); Alkaline Phosphatase 95 U/L (38-126); Anion Gap 7 mmol/L (4-12); Aspartate Amino Transferase 28 U/L (14-36); Bilirubin,Total 0.6 mg/dL (0.2-1.3); Blood Urea Nitrogen 14 mg/dL (7-17); CRP < 0.5 mg/dL (<1.0); Calcium 8.7 mg/dL (8.4-10.2); Carbon Dioxide 22 mmol/L (22-30); Chloride 108 mmol/L (98-107); Estimated CRCL calculation 66 ml/min; Estimated Glomerular Filt Rate > 60; Glucose 183 mg/dL (65-110); Lipase 19 U/L (23-300); Magnesium 3.2 mg/dL (1.6-2.3); Potassium 4.3 mmol/L (3.4-5.0); Sodium 137 mmol/L (137-145); Total Protein 7.6 g/dL (6.3-8.2)
[2025-09-17] MEDS: IPRATROPIUM 0.5 MG/ALBUTEROL SULFATE 2.5 MG (BASE) AMPUL.NEB 3 ML INHALATION ×6 (00:15→20:39)
[2025-09-17 00:24] LABS: NT Pro B Type Natriuretic Pept 171 pg/mL (19.9-100); Troponin I < 0.012 ng/mL (0.000-0.034)
[2025-09-17 00:27] LABS: INR 1.1; Prothrombin Time 14.0 Seconds (11.1-14.7)
[2025-09-17 00:28] LABS: Partial Thromboplastin Time 30.9 Seconds (22.3-36.8)
[2025-09-17 00:29] LABS: Procalcitonin 0.0 ng/mL
[2025-09-17 00:38] LABS: Influenza A QL RT-PCR Negative (Negative); Influenza B QL RT-PCR Negative (Negative); RSV RNA, RT-PCR Negative (Negative); SARS-CoV-2 RNA PCR Negative (Negative)
[2025-09-17] MEDS: AZITHROMYCIN IV 500 MG in SODIUM CHLORIDE 0.9% IV 250 ML IVPB ×2 (00:43→22:19)
[2025-09-17 01:32] LABS: Add Urine Microscopic? YES; Appearance Urine Clear (Clear); Glucose Urine UA Negative (Negative); Leukocyte Esterase Ur Negative LEU/UL (Negative); Nitrate Urine Negative (Negative); Non Pathogenic Casts 0-2; Specific Grav Ur 1.007 (1.001-1.035)
[2025-09-17] MEDS: SODIUM CHLORIDE 0.9% IV 1,000 ML 125 ML IV CONT (03:51)
[2025-09-17] MEDS: metroNIDAZOLE 500 MG/ISO 100ML 500 MG/100 ML BAG 100 MG IVPB ×3 (03:52→21:44)
--- NOTE | 2025-09-17 04:41 | ECG_ITS ---
Test Date: 2025-09-17 04:48:07 Measurements Intervals Kelley Rate: 101 P: 74 RI: 161 QRS: 30 QRSD: 77 T: 48 QT: 339 QTc: 441 Interpretive Statements SINUS TACHYCARDIA LOW QRS VOLTAGE IN PRECORDIAL LEADS BASELINE WANDER- V1, V6 BORDERLINE ECG Compared to ECG 09/16/2025 23:00:51 HEART RATE HAS INCREASED Electronically Signed On 09-17-2025 06:07:41 IV TECHNICIAN by Bon Rosa D.O.
[2025-09-17 05:25] LABS: Troponin I 0.028 ng/mL (0.000-0.034)
--- NOTE | 2025-09-17 05:55 | PM.IMHP2 ---
H&P: HPI History of Present Illness Date/Time: 09/17/25 05:55 Chief Complaint: Shortness of breath, wheezing Narrative: 70-year-old female with PMH COPD, anxiety on low-dose Xanax p.r.n. presents to [facility] ER on 09/16/2025 shortness of breath. The patient lives with her and is in generally good health, her COPD is controlled. On 09/15 the patient was eating and choked on corn. She developed extreme shortness of breath, wheezing, cough. She had an anxiety attack. It improved somewhat and the patient went to sleep, she woke up and her breathing was still labored. She did not have cough or as much wheezing. Patient arrived by EMS on CPAP, she had tachypnea, labored breathing. Blood pressure 145/93. ABG on FiO2 80% showing pH 7.32, pCO2 43, PO2 127, troponin 0.012, procalcitonin 0, urinalysis unremarkable, quad viral screen unremarkable. WBC [address]. CT chest without contrast shows pattern of interstitial lung disease, no consolidation, emphysematous changes, small pericardial effusion. Official interpretation is pending. On lung auscultation her right side is decreased compared to left. Patient tells me she feels as if she had difficulty breathing on the right side of her lung. Patient was given DuoNebs, Solu-Medrol, 30 cc/kilogram normal saline bolus, ceftriaxone, azithromycin. Metronidazole. Review of Systems Review of Systems: All systems reviewed & are unremarkable except as noted in HPI and below (Subjective) Meds Home Medications and Allergies Allergies Allergy/AdvReac Type Severity Reaction Status Date / Time Penicillins Allergy Intermediate Rash Verified 09/16/25 23:41 Vital Signs Vital Signs - 24 hr 09/16/25 22:55 09/16/25 23:21 09/16/25 23:30 Pulse Rate 101 H 93 96 Respiratory Rate 23 H 26 H 28 H Blood Pressure 145/93 H Pulse Oximetry 98 96 94 Oxygen Delivery CPAP Oxygen Flow Rate Fraction of Inspired Oxygen 09/16/25 23:31 09/16/25 23:50 09/16/25 23:53 Pulse Rate 97 94 93 Respiratory Rate 20 24 H Blood Pressure 132/55 L Pulse Oximetry 96 Oxygen Delivery Oxygen Flow Rate Fraction of Inspired Oxygen 09/16/25 23:53 09/16/25 23:53 09/16/25 23:55 Pulse Rate 93 86 Respiratory Rate 26 H 25 H Blood Pressure Pulse Oximetry 94 94 96 Oxygen Delivery Nasal Cannula BiPAP Oxygen Flow Rate 4 Fraction of Inspired Oxygen 09/16/25 23:55 09/17/25 00:00 09/17/25 00:11 Pulse Rate 86 92 89 Respiratory Rate 25 H 24 H 18 Blood Pressure 138/78 Pulse Oximetry 96 93 95 Oxygen Delivery BiPAP Oxygen Flow Rate Fraction of Inspired Oxygen 30 09/17/25 00:15 09/17/25 00:16 09/17/25 00:30 Pulse Rate 86 86 88 Respiratory Rate 22 H 25 H 20 Blood Pressure Pulse Oximetry 96 98 Oxygen Delivery Oxygen Flow Rate Fraction of Inspired Oxygen 09/17/25 00:31 09/17/25 00:45 09/17/25 01:00 Pulse Rate 90 98 112 H Respiratory Rate 21 H 21 H 24 H Blood Pressure 153/85 H Pulse Oximetry 100 98 96 Oxygen Delivery Oxygen Flow Rate Fraction of Inspired Oxygen 09/17/25 01:02 09/17/25 01:15 09/17/25 01:30 Pulse Rate 112 H 124 H 116 H Respiratory Rate 27 H 27 H 30 H Blood Pressure 116/76 Pulse Oximetry 93 Oxygen Delivery Oxygen Flow Rate Fraction of Inspired Oxygen 09/17/25 01:31 09/17/25 01:45 09/17/25 02:00 Pulse Rate 117 H 113 H 112 H Respiratory Rate 26 H 30 H 27 H Blood Pressure 133/87 Pulse Oximetry 92 95 96 Oxygen Delivery Oxygen Flow Rate Fraction of Inspired Oxygen 09/17/25 02:01 09/17/25 02:15 09/17/25 02:36 Pulse Rate 111 H 112 H Respiratory Rate 25 H 21 H 50 H Blood Pressure 133/81 Pulse Oximetry 97 94 99 Oxygen Delivery Oxygen Flow Rate Fraction of Inspired Oxygen 09/17/25 02:45 09/17/25 02:49 09/17/25 03:00 Pulse Rate 111 H 111 H 109 H Respiratory Rate 24 H 20 22 H Blood Pressure 154/97 H Pulse Oximetry 96 96 95 Oxygen Delivery Oxygen Flow Rate Fraction of Inspired Oxygen 09/17/25 03:01 09/17/25 03:15 09/17/25 03:30 Pulse Rate 109 H 106 H 104 H Respiratory Rate 23 H 19 20 Blood Pressure 167/91 H Pulse Oximetry 95 95 95 Oxygen Delivery Oxygen Flow Rate Fraction of Inspired Oxygen 09/17/25 03:30 09/17/25 03:31 09/17/25 03:45 Pulse Rate 105 H 103 H 103 H Respiratory Rate 23 H 16 21 H Blood Pressure 158/96 H Pulse Oximetry 94 96 96 Oxygen Delivery BiPAP Oxygen Flow Rate Fraction of Inspired Oxygen 09/17/25 04:15 09/17/25 04:30 09/17/25 04:31 Pulse Rate 101 H 100 99 Respiratory Rate 25 H 24 H 21 H Blood Pressure 160/90 H Pulse Oximetry 96 95 97 Oxygen Delivery Oxygen Flow Rate Fraction of Inspired Oxygen Exam Const: General: comfortable and no acute distress Other: A&O x4 Eyes: Pupils: Equal, round and reactive pupils present Neck: Neck: supple Resp: Other: Tachypnea Cardio: Rate: regular rate Rhythm: regular rhythm Heart sounds: no murmurs GI: Inspection: non-distended GI Palp: Yes Soft to palpation : General: Yes bladder normal to palpation Neuro: Motor exam (neuro): 5/5 motor strength present throughout Extrem: General: no edema Results Labs Labs: Short CBC 09/16/25 Range/Units 23:46 WBC 13.1 H (4.5-10.0) K/mm3 Hgb 13.2 (12.0-15.0) g/dL Hct 39.7 (37.0-47.0) % Plt Count 304 (150-375) k/mm3 BMP 09/16/25 23:46 Sodium 137 Potassium 4.3 Chloride 108 H Carbon Dioxide 22 BUN 14 Creatinine 0.54 L Glucose 183 H Calcium 8.7 Cardiac Enzymes 09/16/25 09/17/25 Range/Units 23:46 04:54 Troponin I < 0.012 0.028 D (0.000-0.034) ng/mL Liver Function 09/16/25 Range/Units 23:46 Total Bilirubin 0.6 (0.2-1.3) mg/dL AST 28 (14-36) U/L ALT 26 (6-35) U/L Alkaline Phosphatase 95 (38-126) U/L Albumin 4.4 (3.5-5.1) g/dL Urine 09/17/25 Range/Units 01:14 Urine Color Yellow (Yellow) Urine Appearance Clear (Clear) Urine pH 6.5 (5.0-9.0) Ur Specific [place] 1.007 (1.001-1.035) Urine Protein Trace (Negative) mg/dL Urine Glucose (UA) Negative (Negative) mg/dL Assessment and Plan Assessment and plan (1) COPD (chronic obstructive pulmonary disease): Code(s): J44.9 - Chronic obstructive pulmonary disease, unspecified Status: Acute (2) Aspiration into lower respiratory tract: Code(s): T17.800A - Unspecified foreign body in other parts of respiratory tract causing asphyxiation, initial encounter; W44.9XXA - Unspecified foreign body entering into or through a natural orifice, initial encounter Status: Acute (3) Acute respiratory failure: Code(s): J96.00 - Acute respiratory failure, unspecified whether with hypoxia or hypercapnia Status: Acute (4) Pneumonitis: Code(s): J98.4 - Other disorders of lung Status: Acute Plan Patient presents with respiratory distress. Unclear if she was hypoxic as she arrived on the CPAP. Nonetheless, she will be treated for aspiration pneumonitis, possible aspiration pneumonia, bronchospasm, COPD exacerbation, heightened anxiety. Blood cultures obtained. Patient had delta change of troponin from 0.012 to 0.028. No chest pain. No acute ischemia on EKG. Will repeat troponin. Continue BiPAP for now. Wean as tolerated. Steroids. Ceftriaxone, azithromycin, metronidazole. DuoNebs. Continue REPORTING CONSULTANT Xanax p.r.n.. Adverse effects, risk and benefits of medications discussed with the patient. was present at bedside, there were in full understanding and agreement. Patient wishes to be full code. Saline lock IV. SCDs. Continue telemetry. Time Spent with Patient Time with patient: 45 - 74 minutes Hospitalist MIPS Advance Care Plan I have confirmed that the patient's Advanced Care Plan is present, code status is documented, or surrogate decision maker is listed in patient medical record.: Yes Medication Reconciliation I have utilized all available resources to obtain, update and review the patients current medications (includes all prescriptions, OTC, herbals, cannabis, and nutritional supplements).: Yes
[2025-09-17 07:30] LABS: Hematocrit 37.8 % (37.0-47.0); Hemoglobin 12.3 g/dL (12.0-15.0); Immature Granulocyte Percent A 2.3 % (0-0.5); Lymphocytes Absolute Auto 0.62 K/mm3 (0.9-3.2); Mean Corpuscular HGB Conc 32.5 g/dl (32-36); Mean Corpuscular Hemoglobin 32.4 pg (26-34); Mean Corpuscular Volume 99.5 fl (80-100); Nucleated Red Blood Cells Absolute Auto 0.000 K/mm3 (0.0-0.012); Nucleated Red Blood Cells Perc 0.0 % (0.0-0.2); Platelet Count Result 261 k/mm3 (150-375); Red Blood Count 3.80 M/mm3 (4.2-5.4); White Blood Count 12.2 K/mm3 (4.5-10.0)
--- NOTE | 2025-09-17 07:32 | ECG_ITS ---
Test Date: 2025-09-17 07:47:05 Measurements Intervals [place] Rate: 85 P: 79 [place]: 154 QRS: 33 QRSD: 78 T: 48 QT: 356 QTc: 425 Interpretive Statements SINUS RHYTHM LOW QRS VOLTAGE IN PRECORDIAL LEADS BORDERLINE ST ABNORMALITY- LATERAL LEADS BASELINE ARTIFACT- I, II, AVR, AVL, V1, V4-V6 BORDERLINE ECG Compared to ECG 09/17/2025 04:48:07 HEART RATE HAS DECREASED Electronically Signed On 09-17-2025 07:54:03 SCALE ADJUSTER by Bon Rosa D.O.
[2025-09-17 07:48] LABS: Alanine Aminotransferase 32 U/L (6-35); Albumin Level 4.2 g/dL (3.5-5.1); Alkaline Phosphatase 80 U/L (38-126); Anion Gap 6 mmol/L (4-12); Aspartate Amino Transferase 30 U/L (14-36); Bilirubin,Total 0.3 mg/dL (0.2-1.3); Blood Urea Nitrogen 11 mg/dL (7-17); Calcium 7.6 mg/dL (8.4-10.2); Carbon Dioxide 22 mmol/L (22-30); Chloride 115 mmol/L (98-107); Estimated CRCL calculation 70 ml/min; Estimated Glomerular Filt Rate > 60; Glucose 165 mg/dL (65-110); Magnesium 2.3 mg/dL (1.6-2.3); Potassium 4.3 mmol/L (3.4-5.0); Sodium 143 mmol/L (137-145); Total Protein 7.2 g/dL (6.3-8.2)
[2025-09-17 07:59] LABS: Troponin I 0.026 ng/mL (0.000-0.034)
--- NOTE | 2025-09-17 12:04 | PC.NURSE ---
This patient, Nicole Lloyd, was admitted to [facility]. Patient/family oriented to hospital policies and general routines including ID bracelet, bed and alarms, visiting hours, pain management, procedures, bathroom and other care routines, personal items, smoking policy, room service/diet, and visiting hours. Information on how to activate the Rapid Response Team has been discussed. Patient/Family are encouraged to report perceived risks to care and to ask questions if they do not understand what they are told or what they should do.
--- NOTE | 2025-09-17 13:08 | P.PNIM_ITS ---
Assessment and Plan Assessment and Plan (1) Acute respiratory failure: Code(s): J96.00 - Acute respiratory failure, unspecified whether with hypoxia or hypercapnia Status: Acute (2) Aspiration into lower respiratory tract: Code(s): T17.800A - Unspecified foreign body in other parts of respiratory tract causing asphyxiation, initial encounter; W44.9XXA - Unspecified foreign body entering into or through a natural orifice, initial encounter Status: Acute (3) COPD (chronic obstructive pulmonary disease): Code(s): J44.9 - Chronic obstructive pulmonary disease, unspecified Status: Acute (4) Pneumonitis: Code(s): J98.4 - Other disorders of lung Status: Acute Plan 70-year-old female with PMH COPD, anxiety on low-dose Xanax p.r.n. presents to [facility] ER on 09/16/2025 shortness of breath. The patient lives with her and is in generally good health, her COPD is controlled. On 09/15 the patient was eating and choked on corn. She developed extreme shortness of breath, wheezing, cough. She had an anxiety attack. It improved somewhat and the patient went to sleep, she woke up and her breathing was still labored. She did not have cough or as much wheezing. Patient arrived by EMS on CPAP, she had tachypnea, labored breathing. Blood pressure 145/93. ABG on FiO2 80% showing pH 7.32, pCO2 43, PO2 127, troponin 0.012, procalcitonin 0, urinalysis unremarkable, quad viral screen unremarkable. WBC [address]. CT chest without contrast shows pattern of interstitial lung disease, no consolidation, emphysematous changes, small pericardial effusion. Patient was given DuoNebs, Solu-Medrol, 30 cc/kilogram normal saline bolus, ceftriaxone, azithromycin. Metronidazole. Serial troponin remained negative Acute respiratory distress needing BiPAP support now tapered off. COPD exacerbation CT chest reviewed. With steroid and DuoNeb. Currently no wheezes heard. If remains stable will switch to oral steroid Aspiration pneumonitis CT chest with no findings and pneumonia. Continue on ceftriaxone azithromycin and Flagyl as ordered. Code status full code DVT prophylaxis SCDs Subjective Date/time seen: 09/17/25 13:08 Interval history: Disease off BiPAP now. On 5 L oxygen via nasal cannula. Breathing is much better. Cough has improved. Review of Systems Review of Systems: All systems reviewed & are unremarkable except as noted in HPI and below (Subjective) Exam Narrative: CONST: Alert and oriented x3 not in acute distress. HENMT: Head is normocephalic and atraumatic. EYES: No scleral icterus. No conjunctival injection or pallor. PERRL. RESP: Diminished breath sounds bilaterally no wheezes or Creps. No respiratory distress CARDIO: Regular rate Regular rhythm. 2+ DP and radial pulses bilaterally. GI: Nondistended. No tenderness to palpation. Soft. : No CVA tenderness to palpation. SKIN: No rashes or lesions noted on exposed skin. NEURO: Oriented x3. Moves all extremities. EXTREM/MSK/BACK: No pedal edema. PSYCH: Normal affect. Objective Data Vital Signs Vital Signs: Vital Signs - 24 hr 09/16/25 22:55 09/16/25 23:21 09/16/25 23:30 Temperature Pulse Rate 101 H 93 96 Respiratory Rate 23 H 26 H 28 H Blood Pressure 145/93 H Pulse Oximetry 98 96 94 Oxygen Delivery CPAP Oxygen Flow Rate Fraction of Inspired Oxygen 09/16/25 23:31 09/16/25 23:50 09/16/25 23:53 Temperature Pulse Rate 97 94 93 Respiratory Rate 20 24 H Blood Pressure 132/55 L Pulse Oximetry 96 Oxygen Delivery Oxygen Flow Rate Fraction of Inspired Oxygen 09/16/25 23:53 09/16/25 23:53 09/16/25 23:55 Temperature Pulse Rate 93 86 Respiratory Rate 26 H 25 H Blood Pressure Pulse Oximetry 94 94 96 Oxygen Delivery Nasal Cannula BiPAP Oxygen Flow Rate 4 Fraction of Inspired Oxygen 09/16/25 23:55 09/17/25 00:00 09/17/25 00:11 Temperature Pulse Rate 86 92 89 Respiratory Rate 25 H 24 H 18 Blood Pressure 138/78 Pulse Oximetry 96 93 95 Oxygen Delivery BiPAP Oxygen Flow Rate Fraction of Inspired Oxygen 30 09/17/25 00:15 09/17/25 00:16 09/17/25 00:30 Temperature Pulse Rate 86 86 88 Respiratory Rate 22 H 25 H 20 Blood Pressure Pulse Oximetry 96 98 Oxygen Delivery Oxygen Flow Rate Fraction of Inspired Oxygen 09/17/25 00:31 09/17/25 00:45 09/17/25 01:00 Temperature Pulse Rate 90 98 112 H Respiratory Rate 21 H 21 H 24 H Blood Pressure 153/85 H Pulse Oximetry 100 98 96 Oxygen Delivery Oxygen Flow Rate Fraction of Inspired Oxygen 09/17/25 01:02 09/17/25 01:15 09/17/25 01:30 Temperature Pulse Rate 112 H 124 H 116 H Respiratory Rate 27 H 27 H 30 H Blood Pressure 116/76 Pulse Oximetry 93 Oxygen Delivery Oxygen Flow Rate Fraction of Inspired Oxygen 09/17/25 01:31 09/17/25 01:45 09/17/25 02:00 Temperature Pulse Rate 117 H 113 H 112 H Respiratory Rate 26 H 30 H 27 H Blood Pressure 133/87 Pulse Oximetry 92 95 96 Oxygen Delivery Oxygen Flow Rate Fraction of Inspired Oxygen 09/17/25 02:01 09/17/25 02:15 09/17/25 02:36 Temperature Pulse Rate 111 H 112 H Respiratory Rate 25 H 21 H 50 H Blood Pressure 133/81 Pulse Oximetry 97 94 99 Oxygen Delivery Oxygen Flow Rate Fraction of Inspired Oxygen 09/17/25 02:45 09/17/25 02:49 09/17/25 03:00 Temperature Pulse Rate 111 H 111 H 109 H Respiratory Rate 24 H 20 22 H Blood Pressure 154/97 H Pulse Oximetry 96 96 95 Oxygen Delivery Oxygen Flow Rate Fraction of Inspired Oxygen 09/17/25 03:01 09/17/25 03:15 09/17/25 03:30 Temperature Pulse Rate 109 H 106 H 104 H Respiratory Rate 23 H 19 20 Blood Pressure 167/91 H Pulse Oximetry 95 95 95 Oxygen Delivery Oxygen Flow Rate Fraction of Inspired Oxygen 09/17/25 03:30 09/17/25 03:31 09/17/25 03:45 Temperature Pulse Rate 105 H 103 H 103 H Respiratory Rate 23 H 16 21 H Blood Pressure 158/96 H Pulse Oximetry 94 96 96 Oxygen Delivery BiPAP Oxygen Flow Rate Fraction of Inspired Oxygen 09/17/25 04:15 09/17/25 04:30 09/17/25 04:31 Temperature Pulse Rate 101 H 100 99 Respiratory Rate 25 H 24 H 21 H Blood Pressure 160/90 H Pulse Oximetry 96 95 97 Oxygen Delivery Oxygen Flow Rate Fraction of Inspired Oxygen 09/17/25 04:32 09/17/25 04:45 09/17/25 05:00 Temperature Pulse Rate 100 104 H 98 Respiratory Rate 18 18 24 H Blood Pressure Pulse Oximetry 96 94 97 Oxygen Delivery Oxygen Flow Rate Fraction of Inspired Oxygen 09/17/25 05:01 09/17/25 05:15 09/17/25 05:30 Temperature Pulse Rate 99 98 96 Respiratory Rate 24 H 19 23 H Blood Pressure 159/84 H Pulse Oximetry 97 98 97 Oxygen Delivery Oxygen Flow Rate Fraction of Inspired Oxygen 09/17/25 05:31 09/17/25 05:45 09/17/25 06:00 Temperature Pulse Rate 96 99 89 Respiratory Rate 22 H 25 H 20 Blood Pressure 166/82 H Pulse Oximetry 97 99 98 Oxygen Delivery Oxygen Flow Rate Fraction of Inspired Oxygen 09/17/25 06:02 09/17/25 06:15 09/17/25 06:30 Temperature Pulse Rate 95 94 90 Respiratory Rate 21 H 23 H 20 Blood Pressure 145/95 H Pulse Oximetry 98 96 99 Oxygen Delivery Oxygen Flow Rate Fraction of Inspired Oxygen 09/17/25 06:31 09/17/25 06:45 09/17/25 07:00 Temperature Pulse Rate 91 95 84 Respiratory Rate 19 20 20 Blood Pressure 148/77 H Pulse Oximetry 99 97 98 Oxygen Delivery Oxygen Flow Rate Fraction of Inspired Oxygen 09/17/25 07:01 09/17/25 07:10 09/17/25 08:36 Temperature 97.5 F L Pulse Rate 85 89 85 Respiratory Rate 20 22 H 23 H Blood Pressure 151/80 H 151/80 H Pulse Oximetry 99 98 94 Oxygen Delivery BiPAP Oxygen Flow Rate Fraction of Inspired Oxygen 09/17/25 08:36 09/17/25 08:45 09/17/25 09:01 Temperature Pulse Rate 85 88 88 Respiratory Rate 23 H 23 H 23 H Blood Pressure 149/78 H Pulse Oximetry 100 Oxygen Delivery Oxygen Flow Rate Fraction of Inspired Oxygen 09/17/25 11:03 09/17/25 11:09 09/17/25 12:45 Temperature Pulse Rate 86 90 Respiratory Rate 24 H 24 H Blood Pressure 130/59 L 151/76 H Pulse Oximetry 100 98 99 Oxygen Delivery BiPAP Oxygen Flow Rate Fraction of Inspired Oxygen 09/17/25 12:46 Temperature Pulse Rate Respiratory Rate Blood Pressure Pulse Oximetry 99 Oxygen Delivery Nasal Cannula Oxygen Flow Rate 4 Fraction of Inspired Oxygen Intake/Output Intake/Output: Intake & Output 09/14/25 09/15/25 09/16/25 09/17/25 23:59 23:59 23:59 23:59 Intake Total 2650 Balance 2650 Meds/Results Medications: Active Medications Generic Name Dose Route Start Last Admin Trade Name Troyq PRN Reason Stop Dose Admin Albuterol/Ipratropium 3 ml 09/17/25 08:00 09/17/25 08:36 Ipratropium 0.5 Mg/Albuterol Sulfate 2.5 Mg (Base) Ampul.Neb 3 Ml INHALATION 3 ml Q6HRT VINCENT Administration Ceftriaxone Sodium 1 gm/ 50 mls @ 100 mls/hr 09/17/25 22:00 Sodium Chloride IVPB Q24H VINCENT Azithromycin 500 mg/ Sodium 250 mls @ 250 mls/hr 09/17/25 23:00 Chloride IVPB 09/20/25 23:59 Q24H VINCENT Metronidazole 500 mg in 100 mls @ 100 mls/hr 09/17/25 13:00 Flagyl 500 Mg/Iso Soln 100 Ml IVPB Q8HR VINCENT Methylprednisolone Sodium Succinate 60 mg 09/17/25 06:05 09/17/25 06:35 Methylprednisolone Sod Succ 125 Mg Vial IV PUSH 60 mg Q8HR VINCENT Administration Radiology Results: ITS Impressions Chest X-Ray 09/17/25 08:22 IMPRESSION: 1. Chronic linear discoid atelectasis/scarring the right mid and left lower lung zones. Chest CT 09/17/25 08:37 IMPRESSION: 1. Advanced emphysematous changes in the lungs. 2. No gross acute intrathoracic process identified. NOTE: Preliminary radiology report provided by [facility] radiologist. Labs Labs: Laboratory Results - last 24 hr 09/16/25 09/16/25 09/17/25 22:55 23:46 01:14 WBC 13.1 H RBC 4.13 L Hgb 13.2 Hct 39.7 MCV 96.1 MCH 32.0 MCHC 33.2 RDW 12.9 Plt Count 304 MPV 8.5 Immature Gran % (Auto) 0.9 H Neut % (Auto) 87.7 H Lymph % (Auto) 6.8 L [place] % (Auto) 4.4 Eos % (Auto) 0.0 Baso % (Auto) 0.2 Lymph # (Auto) 0.89 L [place] # (Auto) 0.6 Eos # (Auto) 0.0 Baso # (Auto) 0.0 Abs Immat Gran (auto) 0.12 H Absolute Neuts (auto) 11.5 H Absolute Nucleated RBC 0.000 Nucleated RBC % 0.0 PT 14.0 INR 1.1 APTT 30.9 ABG pH 7.329 L ABG pCO2 43.4 ABG pO2 127.9 H ABG PO2/FiO2 Ratio 1.60 ABG HCO3 22.3 ABG O2 Saturation 98.3 ABG O2 Content 20.2 ABG Base Excess -3.6 A-a Gradient 396.9 Oxyhemoglobin 97.1 Total Hemoglobin 14.7 FiO2 80 Sodium 137 Potassium 4.3 Chloride 108 H Carbon Dioxide 22 Anion Gap 7 BUN 14 Creatinine 0.54 L Estim Creat Clear Calc 66 Estimated GFR > 60 Glucose 183 H Lactic Acid 1.3 Calcium 8.7 Magnesium 3.2 H Total Bilirubin 0.6 AST 28 ALT 26 Alkaline Phosphatase 95 Troponin I < 0.012 C-Reactive Protein < 0.5 NT-Pro-B Natriuret Pep 171 H Total Protein 7.6 Albumin 4.4 Lipase 19 L Procalcitonin 0.0 TSH (Reflex) Cancelled Urine Color Yellow Urine Appearance Clear Urine pH 6.5 Ur Specific [place] 1.007 Urine Protein Trace Urine Glucose (UA) Negative Urine Ketones Negative Ur Blood (Man) Negative Urine Nitrate Negative Urine Bilirubin Negative Urine Urobilinogen 0.2 Leukocyte Esterase Rfl Negative Urine RBC 0-2 Urine WBC 0-5 Ur Squamous Epith Cells None seen Urine Bacteria None seen Urine Casts 0-2 Influenza A (RT-PCR) Negative Influenza B (RT-PCR) Negative RSV (RT-PCR) Negative SARS-CoV-2 RNA (RT-PCR) Negative 09/17/25 09/17/25 09/17/25 04:54 07:22 07:23 WBC 12.2 H RBC 3.80 L Hgb 12.3 Hct 37.8 MCV 99.5 MCH 32.4 MCHC 32.5 RDW 13.1 Plt Count 261 MPV 8.6 Immature Gran % (Auto) 2.3 H Neut % (Auto) 91.4 H Lymph % (Auto) 5.1 L [place] % (Auto) 1.0 L Eos % (Auto) 0.0 Baso % (Auto) 0.2 Lymph # (Auto) 0.62 L [place] # (Auto) 0.1 Eos # (Auto) 0.0 Baso # (Auto) 0.0 Abs Immat Gran (auto) 0.28 H Absolute Neuts (auto) 11.1 H Absolute Nucleated RBC 0.000 Nucleated RBC % 0.0 PT INR APTT ABG pH ABG pCO2 ABG pO2 ABG PO2/FiO2 Ratio ABG HCO3 ABG O2 Saturation ABG O2 Content ABG Base Excess A-a Gradient Oxyhemoglobin Total Hemoglobin FiO2 Sodium 143 Potassium 4.3 Chloride 115 H Carbon Dioxide 22 Anion Gap 6 BUN 11 Creatinine 0.51 L Estim Creat Clear Calc 70 Estimated GFR > 60 Glucose 165 H Lactic Acid Calcium 7.6 L Magnesium 2.3 Total Bilirubin 0.3 AST 30 ALT 32 Alkaline Phosphatase 80 Troponin I 0.028 D 0.026 C-Reactive Protein NT-Pro-B Natriuret Pep Total Protein 7.2 Albumin 4.2 Lipase Procalcitonin TSH (Reflex) Urine Color Urine Appearance Urine pH Ur Specific [place] Urine Protein Urine Glucose (UA) Urine Ketones Ur Blood (Man) Urine Nitrate Urine Bilirubin Urine Urobilinogen Leukocyte Esterase Rfl Urine RBC Urine WBC Ur Squamous Epith Cells Urine Bacteria Urine Casts Influenza A (RT-PCR) Influenza B (RT-PCR) RSV (RT-PCR) SARS-CoV-2 RNA (RT-PCR)
[2025-09-17] MEDS: ACETAMINOPHEN 500 MG TABLET 1000 MG PO (13:52)
--- NOTE | 2025-09-17 15:28 | ADMGEN ---
This patient, Nicole Lloyd, was admitted to [facility] Surg Room 315-01. Patient/family oriented to hospital policies and general routines including ID bracelet, bed and alarms, visiting hours, pain management, procedures, bathroom and other care routines, personal items, smoking policy, room service/diet, and visiting hours. Information on how to activate the Rapid Response Team has been discussed. Patient/Family are encouraged to report perceived risks to care and to ask questions if they do not understand what they are told or what they should do. Recieved electronic handoff from DAISY Cooper RN. Jose Guadalupe arrived to room 1440
[2025-09-17] MEDS: ACETAMINOPHEN 325 MG TABLET 650 MG PO (18:50)
[2025-09-17] MEDS: ALPRAZolam (*CRX) 0.125 MG TABLET PO (20:27)
[2025-09-17] MEDS: IBUPROFEN 600 MG TABLET PO (20:38)
[2025-09-17] MEDS: FLUTICASONE/SALMETEROL 230-21 MCG INHALER 1 PUFF INHALATION (20:39)
[2025-09-18] VITALS (17 sets, daily range): BP systolic 105–131; BP diastolic 45–71; PULSE 74–98; RESP 17–22; TEMP 36.1–36.5; O2SAT 93–100
[2025-09-18] MEDS: IPRATROPIUM 0.5 MG/ALBUTEROL SULFATE 2.5 MG (BASE) AMPUL.NEB 3 ML INHALATION ×5 (01:22→20:26)
[2025-09-18] MEDS: metroNIDAZOLE 500 MG/ISO 100ML 500 MG/100 ML BAG 100 MG IVPB ×3 (05:22→23:10)
[2025-09-18] MEDS: LEVOTHYROXINE SODIUM 75 MCG TABLET PO (05:22)
[2025-09-18] MEDS: ALPRAZolam (*CRX) 0.125 MG TABLET PO ×5 (05:48→22:13)
--- NOTE | 2025-09-18 05:48 | PC.NURSE ---
Pt c/o severe anxiety. Requesting xanax. Dr Finley notified, okay to give AM dose early.
[2025-09-18 06:18] LABS: Hematocrit 38.4 % (37.0-47.0); Hemoglobin 11.9 g/dL (12.0-15.0); Immature Granulocyte Percent A 1.5 % (0-0.5); Lymphocytes Absolute Auto 0.83 K/mm3 (0.9-3.2); Mean Corpuscular HGB Conc 31.0 g/dl (32-36); Mean Corpuscular Hemoglobin 31.6 pg (26-34); Mean Corpuscular Volume 101.9 fl (80-100); Nucleated Red Blood Cells Absolute Auto 0.000 K/mm3 (0.0-0.012); Nucleated Red Blood Cells Perc 0.0 % (0.0-0.2); Platelet Count Result 298 k/mm3 (150-375); Red Blood Count 3.77 M/mm3 (4.2-5.4); White Blood Count 20.8 K/mm3 (4.5-10.0)
[2025-09-18 06:50] LABS: Alanine Aminotransferase 25 U/L (6-35); Albumin Level 3.9 g/dL (3.5-5.1); Alkaline Phosphatase 76 U/L (38-126); Anion Gap 4 mmol/L (4-12); Aspartate Amino Transferase 29 U/L (14-36); Bilirubin,Total 0.4 mg/dL (0.2-1.3); Blood Urea Nitrogen 18 mg/dL (7-17); Calcium 8.1 mg/dL (8.4-10.2); Carbon Dioxide 23 mmol/L (22-30); Chloride 114 mmol/L (98-107); Estimated CRCL calculation 69 ml/min; Estimated Glomerular Filt Rate > 60; Glucose 125 mg/dL (65-110); Magnesium 2.5 mg/dL (1.6-2.3); Potassium 4.2 mmol/L (3.4-5.0); Sodium 141 mmol/L (137-145); Total Protein 6.8 g/dL (6.3-8.2)
[2025-09-18] MEDS: FLUTICASONE/SALMETEROL 230-21 MCG INHALER 1 PUFF INHALATION ×2 (07:55→20:26)
--- NOTE | 2025-09-18 08:16 | PM.IMPN2 ---
Assessment and Plan Assessment and Plan (1) Acute respiratory failure: Code(s): J96.00 - Acute respiratory failure, unspecified whether with hypoxia or hypercapnia Status: Acute (2) Aspiration into lower respiratory tract: Code(s): T17.800A - Unspecified foreign body in other parts of respiratory tract causing asphyxiation, initial encounter; W44.9XXA - Unspecified foreign body entering into or through a natural orifice, initial encounter Status: Acute (3) COPD (chronic obstructive pulmonary disease): Code(s): J44.9 - Chronic obstructive pulmonary disease, unspecified Status: Acute (4) Pneumonitis: Code(s): J98.4 - Other disorders of lung Status: Acute Plan 70-year-old female with PMH COPD, anxiety on low-dose Xanax p.r.n. presents to [facility] ER on 09/16/2025 shortness of breath. The patient lives with her and is in generally good health, her COPD is controlled. On 09/15 the patient was eating and choked on corn. She developed extreme shortness of breath, wheezing, cough. She had an anxiety attack. It improved somewhat and the patient went to sleep, she woke up and her breathing was still labored. She did not have cough or as much wheezing. Patient arrived by EMS on CPAP, she had tachypnea, labored breathing. Blood pressure 145/93. ABG on FiO2 80% showing pH 7.32, pCO2 43, PO2 127, troponin 0.012, procalcitonin 0, urinalysis unremarkable, quad viral screen unremarkable. WBC [address]. CT chest without contrast shows pattern of interstitial lung disease, no consolidation, emphysematous changes, small pericardial effusion. Patient was given DuoNebs, Solu-Medrol, 30 cc/kilogram normal saline bolus, ceftriaxone, azithromycin. Metronidazole. Serial troponin remained negative Acute respiratory distress needing BiPAP support now tapered off. Still requiring oxygen supplementation. Chest x-ray and chest reviewed recent choking episode. COPD exacerbation CT chest reviewed. With steroid and DuoNeb. Currently no wheezes heard. With switched to oral steroid Aspiration pneumonitis CT chest with no findings and pneumonia. Continue on ceftriaxone azithromycin and Flagyl as ordered. Anxiety disorder/panic attacks on Xanax p.r.n. on bupropion Hypothyroidism Hypertension GERD Code status full code DVT prophylaxis SCDs Subjective Date/time seen: 09/18/25 08:16 Interval history: Patient requiring 2 L oxygen upon evaluation this a.m.. Still feels short of breath. Had some panic attack earlier today. She takes Xanax worried. Get short of breath with ambulation. Review of Systems Review of Systems: All systems reviewed & are unremarkable except as noted in HPI and below (Subjective) Exam Narrative: CONST: Alert and oriented x3 not in acute distress. HENMT: Head is normocephalic and atraumatic. EYES: No scleral icterus. No conjunctival injection or pallor. PERRL. RESP: Diminished breath sounds bilaterally no wheezes or Crepts. No respiratory distress CARDIO: Regular rate Regular rhythm. 2+ DP and radial pulses bilaterally. GI: Nondistended. No tenderness to palpation. Soft. : No CVA tenderness to palpation. SKIN: No rashes or lesions noted on exposed skin. NEURO: Oriented x3. Moves all extremities. EXTREM/MSK/BACK: No pedal edema. PSYCH: Normal affect. Objective Data Vital Signs Vital Signs: Vital Signs - 24 hr 09/17/25 08:36 09/17/25 08:36 09/17/25 08:45 Temperature Pulse Rate 85 85 88 Respiratory Rate 23 H 23 H 23 H Blood Pressure Pulse Oximetry 94 Oxygen Delivery BiPAP Oxygen Flow Rate Fraction of Inspired Oxygen 09/17/25 09:01 09/17/25 11:03 09/17/25 11:09 Temperature Pulse Rate 88 86 Respiratory Rate 23 H 24 H Blood Pressure 149/78 H 130/59 L Pulse Oximetry 100 100 98 Oxygen Delivery BiPAP Oxygen Flow Rate Fraction of Inspired Oxygen 09/17/25 11:45 09/17/25 12:05 09/17/25 12:45 Temperature Pulse Rate 83 90 Respiratory Rate 22 H 24 H Blood Pressure 149/67 H 151/76 H Pulse Oximetry 99 94 99 Oxygen Delivery Nasal Cannula Oxygen Flow Rate 5 Fraction of Inspired Oxygen 09/17/25 12:46 09/17/25 13:15 09/17/25 14:00 Temperature Pulse Rate 86 87 Respiratory Rate 22 H 20 Blood Pressure 141/76 H 153/73 H Pulse Oximetry 99 99 99 Oxygen Delivery Nasal Cannula Oxygen Flow Rate 4 Fraction of Inspired Oxygen 09/17/25 14:11 09/17/25 15:35 09/17/25 15:45 Temperature Pulse Rate 90 84 88 Respiratory Rate 18 20 20 Blood Pressure 153/73 H Pulse Oximetry 99 Oxygen Delivery Oxygen Flow Rate Fraction of Inspired Oxygen 09/17/25 16:00 09/17/25 20:00 09/17/25 20:40 Temperature 97.9 F 97.1 F L Pulse Rate 104 H 77 77 Respiratory Rate 22 H 16 20 Blood Pressure 166/88 H 128/66 Pulse Oximetry 97 98 Oxygen Delivery Oxygen Flow Rate Fraction of Inspired Oxygen 09/17/25 20:45 09/17/25 20:58 09/18/25 00:00 Temperature 97 F L Pulse Rate 77 80 88 Respiratory Rate 20 20 18 Blood Pressure 108/57 L Pulse Oximetry 97 99 Oxygen Delivery Nasal Cannula Oxygen Flow Rate 5 Fraction of Inspired Oxygen 40 09/18/25 01:22 09/18/25 01:31 09/18/25 04:00 Temperature 97.7 F Pulse Rate 78 80 86 Respiratory Rate 20 20 18 Blood Pressure 121/45 L Pulse Oximetry 100 Oxygen Delivery Oxygen Flow Rate Fraction of Inspired Oxygen 09/18/25 05:31 09/18/25 07:45 09/18/25 07:56 Temperature Pulse Rate 83 76 85 Respiratory Rate 20 20 20 Blood Pressure Pulse Oximetry Oxygen Delivery Oxygen Flow Rate Fraction of Inspired Oxygen 09/18/25 08:03 Temperature Pulse Rate 85 Respiratory Rate 20 Blood Pressure Pulse Oximetry 94 Oxygen Delivery Nasal Cannula Oxygen Flow Rate 1 Fraction of Inspired Oxygen 40 Intake/Output Intake/Output: Intake & Output 09/15/25 09/16/25 09/17/25 09/18/25 23:59 23:59 23:59 23:59 Intake Total 2900 150 Balance 2900 150 Meds/Results Medications: Active Medications Generic Name Dose Route Start Last Admin Trade Name Freq PRN Reason Stop Dose Admin Acetaminophen 650 mg 09/17/25 15:36 09/17/25 18:50 Acetaminophen 325 Mg Tablet PO 650 mg Q6H PRN Administration Mild Pain (1-3) or Fever Albuterol/Ipratropium 3 ml 09/17/25 08:00 09/18/25 07:54 Ipratropium 0.5 Mg/Albuterol Sulfate 2.5 Mg (Base) Ampul.Neb 3 Ml INHALATION 3 ml Q6HRT VINCENT Administration Alprazolam 0.125 mg 09/17/25 20:10 09/18/25 05:48 Alprazolam (*Crx) 0.125 Mg Tablet PO 0.125 mg TID VINCENT Administration Bupropion HCl 150 mg 09/18/25 09:00 Bupropion Hcl Sr (12 Hr) 150 Mg Tab PO DAILY VINCENT Ceftriaxone Sodium 1 gm/ 50 mls @ 100 mls/hr 09/17/25 22:00 09/17/25 21:35 Sodium Chloride IVPB Infused Q24H VINCENT Infusion Azithromycin 500 mg/ Sodium 250 mls @ 250 mls/hr 09/17/25 23:00 09/17/25 22:19 Chloride IVPB 09/20/25 23:59 250 mls/hr Q24H VINCENT Administration Metronidazole 500 mg in 100 mls @ 100 mls/hr 09/17/25 13:00 09/18/25 05:22 Flagyl 500 Mg/Iso Soln 100 Ml IVPB 100 mls/hr Q8HR VINCENT Administration Ibuprofen 600 mg 09/17/25 20:24 09/17/25 20:38 Ibuprofen 600 Mg Tablet PO 600 mg Q6H PRN Administration Mild Pain (1-3) or Fever Levothyroxine Sodium 75 mcg 09/18/25 06:30 09/18/25 05:22 Levothyroxine Sodium 75 Mcg Tablet PO 75 mcg DAILY@0630 VINCENT Administration Methylprednisolone Sodium Succinate 60 mg 09/17/25 06:05 09/18/25 05:22 Methylprednisolone Sod Succ 125 Mg Vial IV PUSH 60 mg Q8HR VINCENT Administration Metoprolol Succinate 50 mg 09/18/25 09:00 Metoprolol Succinate Ext Rel 50 Mg Tabcr PO QAM [facility] Pantoprazole Sodium 20 mg 09/18/25 09:00 Pantoprazole Sod Sesquihydrate 20 Mg Tab PO QAM VINCENT Fluticasone/Salmeterol 1 puff 09/17/25 20:00 09/18/25 07:55 Fluticasone/Salmeterol 230-21 Mcg Inhaler 1 Puff INHALATION 1 puff Q12HRT VINCENT Administration Radiology Results: ITS Impressions Chest X-Ray 09/17/25 08:22 IMPRESSION: 1. Chronic linear discoid atelectasis/scarring the right mid and left lower lung zones. Chest CT 09/17/25 08:37 IMPRESSION: 1. Advanced emphysematous changes in the lungs. 2. No gross acute intrathoracic process identified. NOTE: Preliminary radiology report provided by [facility] radiologist. Labs Labs: Laboratory Results - last 24 hr 09/16/25 09/18/25 22:55 05:35 WBC 20.8 H RBC 3.77 L Hgb 11.9 L Hct 38.4 MCV 101.9 H MCH 31.6 MCHC 31.0 L RDW 13.1 Plt Count 298 MPV 8.9 Immature Gran % (Auto) 1.5 H Neut % (Auto) 91.2 H Lymph % (Auto) 4.0 L [place] % (Auto) 3.2 Eos % (Auto) 0.0 Baso % (Auto) 0.1 L Lymph # (Auto) 0.83 L [place] # (Auto) 0.7 H Eos # (Auto) 0.0 Baso # (Auto) 0.0 Abs Immat Gran (auto) 0.32 H Absolute Neuts (auto) 19.0 H Absolute Nucleated RBC 0.000 Nucleated RBC % 0.0 Puncture Site Not Reportable O2 Delivery Device Not Reportable O2 Liters/Min Not Reportable Sodium 141 Potassium 4.2 Chloride 114 H Carbon Dioxide 23 Anion Gap 4 BUN 18 H Creatinine 0.50 L Estim Creat Clear Calc 69 Estimated GFR > 60 Glucose 125 H Calcium 8.1 L Magnesium 2.5 H Total Bilirubin 0.4 AST 29 ALT 25 Alkaline Phosphatase 76 Total Protein 6.8 Albumin 3.9
[2025-09-18] MEDS: buPROPion HCL SR (12 HR) 150 MG TAB PO (08:47)
[2025-09-18] MEDS: PANTOPRAZOLE SOD SESQUIHYDRATE 20 MG TAB PO (08:47)
[2025-09-18] MEDS: METOPROLOL SUCCINATE EXT REL 50 MG TABCR PO (08:48)
[2025-09-18] MEDS: ROFLUMILAST 500 MCG TABLET PO (08:52)
[2025-09-18] MEDS: predniSONE 40 MG, predniSONE 10 MG 50 MG PO (09:16)
[2025-09-18] MEDS: prednisoLONE ACETATE 1% OPHTH 5 ML 1 DROP LEFT EYE ×3 (13:00→17:12)
[2025-09-18] MEDS: ACETAMINOPHEN 325 MG TABLET 650 MG PO ×2 (13:03→18:36)
[2025-09-18] MEDS: cefTRIAXone 1 GM in SODIUM CHLORIDE 0.9% IV 50 ML 100 ML IVPB (22:31)
[2025-09-19] VITALS (23 sets, daily range): BP systolic 125–186; BP diastolic 55–118; PULSE 66–120; RESP 15–38; TEMP 36.1–36.7; O2SAT 90–100
[2025-09-19] MEDS: AZITHROMYCIN IV 500 MG in SODIUM CHLORIDE 0.9% IV 250 ML IVPB ×2 (00:16→23:05)
[2025-09-19] MEDS: IBUPROFEN 600 MG TABLET PO ×2 (00:54→21:36)
[2025-09-19] MEDS: IPRATROPIUM 0.5 MG/ALBUTEROL SULFATE 2.5 MG (BASE) AMPUL.NEB 3 ML INHALATION ×4 (02:17→20:53)
[2025-09-19] MEDS: metroNIDAZOLE 500 MG/ISO 100ML 500 MG/100 ML BAG 100 MG IVPB ×3 (05:48→22:06)
[2025-09-19] MEDS: ALPRAZolam (*CRX) 0.125 MG TABLET PO ×5 (05:56→23:58)
[2025-09-19] MEDS: LEVOTHYROXINE SODIUM 75 MCG TABLET PO (06:08)
[2025-09-19 07:44] LABS: Hematocrit 38.2 % (37.0-47.0); Hemoglobin 11.9 g/dL (12.0-15.0); Immature Granulocyte Percent A 1.3 % (0-0.5); Lymphocytes Absolute Auto 1.78 K/mm3 (0.9-3.2); Mean Corpuscular HGB Conc 31.2 g/dl (32-36); Mean Corpuscular Hemoglobin 31.9 pg (26-34); Mean Corpuscular Volume 102.4 fl (80-100); Nucleated Red Blood Cells Absolute Auto 0.000 K/mm3 (0.0-0.012); Nucleated Red Blood Cells Perc 0.0 % (0.0-0.2); Platelet Count Result 280 k/mm3 (150-375); Red Blood Count 3.73 M/mm3 (4.2-5.4); White Blood Count 16.4 K/mm3 (4.5-10.0)
[2025-09-19] MEDS: FLUTICASONE/SALMETEROL 230-21 MCG INHALER 1 PUFF INHALATION (07:59)
[2025-09-19 08:06] LABS: Alanine Aminotransferase 28 U/L (6-35); Albumin Level 3.7 g/dL (3.5-5.1); Alkaline Phosphatase 71 U/L (38-126); Anion Gap 2 mmol/L (4-12); Aspartate Amino Transferase 40 U/L (14-36); Bilirubin,Total 0.4 mg/dL (0.2-1.3); Blood Urea Nitrogen 28 mg/dL (7-17); Calcium 8.3 mg/dL (8.4-10.2); Carbon Dioxide 27 mmol/L (22-30); Chloride 112 mmol/L (98-107); Estimated CRCL calculation 55 ml/min; Estimated Glomerular Filt Rate > 60; Glucose 81 mg/dL (65-110); Magnesium 2.5 mg/dL (1.6-2.3); Potassium 3.7 mmol/L (3.4-5.0); Sodium 141 mmol/L (137-145); Total Protein 6.4 g/dL (6.3-8.2)
--- NOTE | 2025-09-19 08:46 | PM.IMPN2 ---
Assessment and Plan Assessment and Plan (1) Acute respiratory failure: Code(s): J96.00 - Acute respiratory failure, unspecified whether with hypoxia or hypercapnia Status: Acute (2) Aspiration into lower respiratory tract: Code(s): T17.800A - Unspecified foreign body in other parts of respiratory tract causing asphyxiation, initial encounter; W44.9XXA - Unspecified foreign body entering into or through a natural orifice, initial encounter Status: Acute (3) COPD (chronic obstructive pulmonary disease): Code(s): J44.9 - Chronic obstructive pulmonary disease, unspecified Status: Acute (4) Pneumonitis: Code(s): J98.4 - Other disorders of lung Status: Acute Plan 70-year-old female with PMH COPD, anxiety on low-dose Xanax p.r.n. presents to [facility] ER on 09/16/2025 shortness of breath. The patient lives with her and is in generally good health, her COPD is controlled. On 09/15 the patient was eating and choked on corn. She developed extreme shortness of breath, wheezing, cough. She had an anxiety attack. It improved somewhat and the patient went to sleep, she woke up and her breathing was still labored. She did not have cough or as much wheezing. Patient arrived by EMS on CPAP, she had tachypnea, labored breathing. Blood pressure 145/93. ABG on FiO2 80% showing pH 7.32, pCO2 43, PO2 127, troponin 0.012, procalcitonin 0, urinalysis unremarkable, quad viral screen unremarkable. WBC [address]. CT chest without contrast shows pattern of interstitial lung disease, no consolidation, emphysematous changes, small pericardial effusion. Patient was given DuoNebs, Solu-Medrol, 30 cc/kilogram normal saline bolus, ceftriaxone, azithromycin. Metronidazole. Serial troponin remained negative Acute respiratory distress needing BiPAP support now tapered off. Still requiring oxygen supplementation. Chest x-ray and chest reviewed recent choking episode. COPD exacerbation CT chest reviewed. With steroid and DuoNeb. Currently no wheezes heard. With switched to oral steroid. Will recheck chest x-ray. Add Pulmicort neb Aspiration pneumonitis CT chest with no findings and pneumonia. Continue on ceftriaxone azithromycin and Flagyl as ordered. Anxiety disorder/panic attacks on Xanax p.r.n. on bupropion Hypothyroidism Hypertension GERD Code status full code DVT prophylaxis SCDs Subjective Date/time seen: 09/19/25 08:46 Interval history: No overnight events. Still feels short of breath. Remains on 2 L oxygen. Cough still present Review of Systems Review of Systems: All systems reviewed & are unremarkable except as noted in HPI and below (Subjective) Exam Narrative: CONST: Alert and oriented x3 not in acute distress. HENMT: Head is normocephalic and atraumatic. EYES: No scleral icterus. No conjunctival injection or pallor. PERRL. RESP: Diminished breath sounds bilaterally no wheezes or Crepts. No respiratory distress CARDIO: Regular rate Regular rhythm. 2+ DP and radial pulses bilaterally. GI: Nondistended. No tenderness to palpation. Soft. : No CVA tenderness to palpation. SKIN: No rashes or lesions noted on exposed skin. NEURO: Oriented x3. Moves all extremities. EXTREM/MSK/BACK: No pedal edema. PSYCH: Normal affect. Objective Data Vital Signs Vital Signs: Vital Signs - 24 hr 09/18/25 08:48 09/18/25 11:18 09/18/25 14:04 Temperature 96.9 F L Pulse Rate 88 94 74 Respiratory Rate 17 20 Blood Pressure 125/68 Pulse Oximetry 93 Oxygen Delivery Oxygen Flow Rate 09/18/25 15:44 09/18/25 20:00 09/18/25 20:26 Temperature 97 F L 97.0 F L Pulse Rate 88 82 Respiratory Rate 17 18 Blood Pressure 131/70 105/66 Pulse Oximetry 96 98 95 Oxygen Delivery Nasal Cannula Oxygen Flow Rate 2 09/18/25 20:26 09/18/25 20:37 09/18/25 22:00 Temperature Pulse Rate 76 85 Respiratory Rate 22 H 22 H Blood Pressure Pulse Oximetry 98 Oxygen Delivery Nasal Cannula Oxygen Flow Rate 2 09/19/25 00:00 09/19/25 02:18 09/19/25 02:24 Temperature 97.7 F Pulse Rate 81 66 70 Respiratory Rate 16 18 18 Blood Pressure 146/55 H Pulse Oximetry 98 Oxygen Delivery Oxygen Flow Rate 09/19/25 04:00 Temperature 97.1 F L Pulse Rate 79 Respiratory Rate 18 Blood Pressure 143/69 H Pulse Oximetry 97 Oxygen Delivery Oxygen Flow Rate Intake/Output Intake/Output: Intake & Output 09/16/25 09/17/25 09/18/2510/25 23:59 23:59 23:59 23:59 Intake Total 3150 590 200 Balance 3150 590 200 Meds/Results Medications: Active Medications Generic Name Dose Route Start Last Admin Trade Name Freq PRN Reason Stop Dose Admin Acetaminophen 650 mg 09/17/25 15:36 09/18/25 18:36 Acetaminophen 325 Mg Tablet PO 650 mg Q6H PRN Administration Mild Pain (1-3) or Fever Albuterol 2.5 mg 09/18/25 08:19 Albuterol Sulfate Neb 2.5 Mg/3 Ml Inh INHALATION Q4HRT PRN Shortness Of Breath Albuterol/Ipratropium 3 ml 09/18/25 14:00 09/19/25 07:52 Ipratropium 0.5 Mg/Albuterol Sulfate 2.5 Mg (Base) Ampul.Neb 3 Ml INHALATION 3 ml Q6HRT VINCENT Administration Alprazolam 0.125 mg 09/18/25 08:18 09/19/25 05:56 Alprazolam (*Crx) 0.125 Mg Tablet PO 0.125 mg Q4H PRN Administration Anxiety Bupropion HCl 150 mg 09/18/25 09:00 09/18/25 08:47 Bupropion Hcl Sr (12 Hr) 150 Mg Tab PO 150 mg DAILY VINCENT Administration Ceftriaxone Sodium 1 gm/ 50 mls @ 100 mls/hr 09/17/25 22:00 09/18/25 22:31 Sodium Chloride IVPB 100 mls/hr Q24H VINCENT Administration Azithromycin 500 mg/ Sodium 250 mls @ 250 mls/hr 09/17/25 23:00 09/19/25 00:16 Chloride IVPB 09/20/25 23:59 250 mls/hr Q24H VINCENT Administration Metronidazole 500 mg in 100 mls @ 100 mls/hr 09/17/25 13:00 09/19/25 05:48 Flagyl 500 Mg/Iso Soln 100 Ml IVPB 100 mls/hr Q8HR VINCENT Administration Ibuprofen 600 mg 09/17/25 20:24 09/19/25 00:54 Ibuprofen 600 Mg Tablet PO 600 mg Q6H PRN Administration Mild Pain (1-3) or Fever Levalbuterol HCl 1 puff 09/18/25 08:20 Levalbuterol Hfa (*Sp) 15 Gm Inhaler INHALATION On Hold: 09/18/25 17:13 PRN PRN Comment: PATIENT ON ALBUTEROL Shortness Of Breath NEBS Levothyroxine Sodium 75 mcg 09/18/25 06:30 09/19/25 06:08 Levothyroxine Sodium 75 Mcg Tablet PO 75 mcg DAILY@0630 VINCENT Administration Metoprolol Succinate 50 mg 09/18/25 09:00 09/18/25 08:48 Metoprolol Succinate Ext Rel 50 Mg Tabcr PO 50 mg QAM VINCENT Administration Miscellaneous Information 1 each 09/18/25 00:01 Tretinoin Cream Is Nonformulary. Hold While Hospitalized? XX 10/18/25 00:00 CLARIFY VINCENT Miscellaneous Information 1 each 09/18/25 00:01 Darifenacin Is Nonformulary. Can She Use Home Supply? Or We Have Ditropan Xl 5mg Daily XX 10/18/25 00:00 CLARIFY VINCENT Miscellaneous Information 1 each 09/18/25 00:01 May Use Home Systane Eye Drops Send To Pharmacy For Verification XX 10/18/25 00:00 CLARIFY VINCENT Non-Formulary Medication 15 mg 09/18/25 09:00 Darifenacin PO 10/18/25 08:59 DAILY VINCENT Non-Formulary Medication 1 applic 09/18/25 09:00 Tretinoin TOPICAL 10/18/25 08:59 DAILY VINCENT Non-Formulary Medication 1 drop 09/18/25 17:00 Systane EACH EYE 10/18/25 16:59 TID VINCENT Pantoprazole Sodium 20 mg 09/18/25 09:00 09/18/25 08:47 Pantoprazole Sod Sesquihydrate 20 Mg Tab PO 20 mg QAM VINCENT Administration Prednisolone Acetate 1 drop 09/18/25 09:00 09/18/25 17:12 Prednisolone Acetate 1% Ophth 5 Ml LEFT EYE 1 drop TID [facility] Administration Prednisone 40 mg/ Prednisone 50 mg 09/18/25 10:00 09/18/25 09:16 10 mg PO 50 mg DAILY@0800 VINCENT Administration Roflumilast 500 mcg 09/18/25 09:00 09/18/25 08:52 Roflumilast 500 Mcg Tablet PO 500 mcg DAILY [facility] Administration Fluticasone/Salmeterol 1 puff 09/17/25 20:00 12/10/25 07:59 Fluticasone/Salmeterol 230-21 Mcg Inhaler 1 Puff INHALATION 1 puff Q12HRT VINCENT Administration Umeclidinium [place] 1 puff 09/19/25 08:00 Umeclidinium [place] 62.5 Mcg Ellipta INHALATION On Hold: 09/19/25 08:00 DAILYRT VINCENT Comment: HOLD WHILE ON DUONEBS Radiology Results: ITS Impressions Chest X-Ray 09/17/25 08:22 IMPRESSION: 1. Chronic linear discoid atelectasis/scarring the right mid and left lower lung zones. Chest CT 09/17/25 08:37 IMPRESSION: 1. Advanced emphysematous changes in the lungs. 2. No gross acute intrathoracic process identified. NOTE: Preliminary radiology report provided by [facility] radiologist. Labs Labs: Laboratory Results - last 24 hr 09/19/25 07:15 WBC 16.4 H RBC 3.73 L Hgb 11.9 L Hct 38.2 MCV 102.4 H MCH 31.9 MCHC 31.2 L RDW 13.4 Plt Count 280 MPV 8.7 Immature Gran % (Auto) 1.3 H Neut % (Auto) 79.3 H Lymph % (Auto) 10.8 L [place] % (Auto) 8.4 Eos % (Auto) 0.0 Baso % (Auto) 0.2 Lymph # (Auto) 1.78 [place] # (Auto) 1.4 H Eos # (Auto) 0.0 Baso # (Auto) 0.0 Abs Immat Gran (auto) 0.22 H Absolute Neuts (auto) 13.0 H Absolute Nucleated RBC 0.000 Nucleated RBC % 0.0 Sodium 141 Potassium 3.7 Chloride 112 H Carbon Dioxide 27 Anion Gap 2 L BUN 28 H D Creatinine 0.67 L Estim Creat Clear Calc 55 Estimated GFR > 60 Glucose 81 Calcium 8.3 L Magnesium 2.5 H Total Bilirubin 0.4 AST 40 H ALT 28 Alkaline Phosphatase 71 Total Protein 6.4 Albumin 3.7
[2025-09-19] MEDS: ROFLUMILAST 500 MCG TABLET PO (09:50)
[2025-09-19] MEDS: PANTOPRAZOLE SOD SESQUIHYDRATE 20 MG TAB PO (09:50)
[2025-09-19] MEDS: METOPROLOL SUCCINATE EXT REL 50 MG TABCR PO (09:50)
[2025-09-19] MEDS: buPROPion HCL SR (12 HR) 150 MG TAB PO (09:50)
[2025-09-19] MEDS: predniSONE 40 MG, predniSONE 10 MG 50 MG PO (09:50)
[2025-09-19] MEDS: prednisoLONE ACETATE 1% OPHTH 5 ML 1 DROP LEFT EYE ×3 (09:52→17:19)
[2025-09-19] MEDS: SACCHAROMYCES BOULARDII 250 MG CAPSULE PO (13:46)
--- NOTE | 2025-09-19 14:22 | PC.NURSE ---
Pt C/O inability to breath. Just received RT treatment and xanax without improvement. [facility] [employer] called.
[2025-09-19] MEDS: ALBUTEROL SULFATE NEB 2.5 MG/3 ML INH INHALATION ×2 (15:30→20:58)
[2025-09-19] MEDS: FUROSEMIDE INJ 40 MG/4 ML VIAL IV PUSH (15:35)
[2025-09-19 15:38] LABS: Alveolar/Arterial O2 Gradient 68.9 mmHg; Fractional Inspired Oxygen 32 %; HCO3 ABG 24.7 mEq/l (22.0-26.0); Oxygen Content ABG 19.3 %vol (16.0-22.0); Oxygen Saturation ABG 96.9 % (95.0-100.0); PCO2 ABG 50.7 mmHg (35.0-45.0); PO2 ABG 99.9 mmHg (80.0-100.0); PO2 FiO2 Ratio Arterial Blood 3.12 %
[2025-09-19] MEDS: diazePAM INJ (*CRX) 10 MG/2 ML SYRINGE 5 MG IV PUSH (15:41)
--- NOTE | 2025-09-19 15:50 | PC.NURSE ---
Pt transferred to IMU.
--- NOTE | 2025-09-19 16:04 | PC.NURSE ---
Patient admitted to IMU room 212. Bedside report obtained. Patient arrived on 6L HFNC. Vital signs obtained, documented and patient/family oriented to room, policies and care plan.
[2025-09-19 16:16] LABS: Modified Allen's Test Pass; Site Drawn LEFT BRACHIAL
[2025-09-19 16:17] LABS: Liters per Minute 3.5 LPM
[2025-09-19] MEDS: ACETAMINOPHEN 325 MG TABLET 650 MG PO (17:18)
[2025-09-19] MEDS: BUDESONIDE RESPULE NEB 0.5 MG/2 ML AMP INHALATION (20:52)
[2025-09-19] MEDS: cefTRIAXone 1 GM in SODIUM CHLORIDE 0.9% IV 50 ML 100 ML IVPB (21:37)
[2025-09-20] VITALS (31 sets, daily range): BP systolic 141–172; BP diastolic 59–103; PULSE 64–114; RESP 20–44; TEMP 36.3–36.8; O2SAT 93–100
[2025-09-20] MEDS: ALBUTEROL SULFATE NEB 2.5 MG/3 ML INH INHALATION ×3 (00:05→07:37)
[2025-09-20] MEDS: IPRATROPIUM 0.5 MG/ALBUTEROL SULFATE 2.5 MG (BASE) AMPUL.NEB 3 ML INHALATION ×6 (00:05→21:22)
[2025-09-20 00:55] LABS: Toxigenic C. Diff NEGATIVE (NEGATIVE)
[2025-09-20] MEDS: ALPRAZolam (*CRX) 0.125 MG TABLET PO ×2 (05:28→10:25)
[2025-09-20] MEDS: metroNIDAZOLE 500 MG/ISO 100ML 500 MG/100 ML BAG 100 MG IVPB (05:29)
[2025-09-20] MEDS: LEVOTHYROXINE SODIUM 75 MCG TABLET PO (05:29)
[2025-09-20] MEDS: BUDESONIDE RESPULE NEB 0.5 MG/2 ML AMP INHALATION ×2 (07:37→21:22)
[2025-09-20 09:56] LABS: CRP < 0.5 mg/dL (<1.0)
[2025-09-20 10:01] LABS: NT Pro B Type Natriuretic Pept 611 pg/mL (19.9-100)
[2025-09-20 10:10] LABS: Procalcitonin 0.0 ng/mL
--- NOTE | 2025-09-20 10:18 | PC.NURSE ---
DR TORRES STATED PATIENT OK TO GO TO CT WITHOUT NURSE.
[2025-09-20] MEDS: buPROPion HCL SR (12 HR) 150 MG TAB PO (10:27)
--- NOTE | 2025-09-20 10:33 | PC.NURSE ---
PATIENT ANXIOUS. DR TORRES MADE AWARE THAT THE PATIENTS RESPIRATIONS ARE 28, RETRACTING AND WHEEZING AND CRACKLES THROUGH OUT UPPER LOBES.
[2025-09-20] MEDS: METOPROLOL SUCCINATE EXT REL 50 MG TABCR PO (10:39)
[2025-09-20] MEDS: SACCHAROMYCES BOULARDII 250 MG CAPSULE PO ×3 (10:40→18:24)
[2025-09-20] MEDS: ROFLUMILAST 500 MCG TABLET PO (10:40)
[2025-09-20] MEDS: PANTOPRAZOLE SOD SESQUIHYDRATE 20 MG TAB PO (10:40)
[2025-09-20] MEDS: prednisoLONE ACETATE 1% OPHTH 5 ML 1 DROP LEFT EYE ×3 (10:42→18:24)
[2025-09-20] MEDS: MEROPENEM 1 GM in SODIUM CHLORIDE 0.9% IV 100 ML 200 ML IVPB ×2 (10:49→17:45)
[2025-09-20 10:57] LABS: Alveolar/Arterial O2 Gradient 92.9 mmHg; Fractional Inspired Oxygen 32 %; HCO3 ABG 24.4 mEq/l (22.0-26.0); Oxygen Content ABG 19.2 %vol (16.0-22.0); Oxygen Saturation ABG 97.0 % (95.0-100.0); PCO2 ABG 38.9 mmHg (35.0-45.0); PO2 ABG 89.7 mmHg (80.0-100.0); PO2 FiO2 Ratio Arterial Blood 2.80 %
[2025-09-20 10:59] LABS: Liters per Minute 3.0 LPM; Modified Allen's Test Pass; Site Drawn LEFT RADIAL
[2025-09-20] MEDS: VANCOMYCIN 1,250 MG/NS 250 ML 1,250 MG/250 ML BAG 166.67 MG IVPB (11:04)
--- NOTE | 2025-09-20 12:47 | P.PNIM_ITS ---
Assessment and Plan Assessment and Plan (1) Acute respiratory failure: Code(s): J96.00 - Acute respiratory failure, unspecified whether with hypoxia or hypercapnia Status: Acute (2) Aspiration into lower respiratory tract: Code(s): T17.800A - Unspecified foreign body in other parts of respiratory tract causing asphyxiation, initial encounter; W44.9XXA - Unspecified foreign body entering into or through a natural orifice, initial encounter Status: Acute (3) COPD (chronic obstructive pulmonary disease): Code(s): J44.9 - Chronic obstructive pulmonary disease, unspecified Status: Acute (4) Pneumonitis: Code(s): J98.4 - Other disorders of lung Status: Acute Plan 70-year-old female with PMH COPD, anxiety on low-dose Xanax p.r.n. presents to [facility] ER on 09/16/2025 shortness of breath. The patient lives with her and is in generally good health, her COPD is controlled. On 09/15 the patient was eating and choked on corn. She developed extreme shortness of breath, wheezing, cough. She had an anxiety attack. It improved somewhat and the patient went to sleep, she woke up and her breathing was still labored. She did not have cough or as much wheezing. Patient arrived by EMS on CPAP, she had tachypnea, labored breathing. Blood pressure 145/93. ABG on FiO2 80% showing pH 7.32, pCO2 43, PO2 127, troponin 0.012, procalcitonin 0, urinalysis unremarkable, quad viral screen unremarkable. WBC [address]. CT chest without contrast shows pattern of interstitial lung disease, no consolidation, emphysematous changes, small pericardial effusion. Patient was given DuoNebs, Solu-Medrol, 30 cc/kilogram normal saline bolus, ceftriaxone, azithromycin. Metronidazole. Serial troponin remained negative Acute respiratory distress needing BiPAP support now tapered off. Still requiring oxygen supplementation and worsened. bipap prn will be added. Chest x-ray and chest reviewed recent choking episode. cxr 09/19 with developing pneumonitis. switched to iv steroid. switch antibiotics to add vancomycin and meropenem. will stop cef and metron. azithromycin to continue for atypical coverage. COPD exacerbation CT chest reviewed. With steroid and DuoNeb. Currently no wheezes heard. With switched to oral steroid. recheck cxr with developing pneumonia. cta chest ordered. added on pulmicort. continue duoneb scheduled. iv steroid as well. pulmonary consultation. mild hypercapnia noted on abg: will repeat. bipap prn for respiratory failure Aspiration pneumonitis CT chest with no findings and pneumonia. Continue on ceftriaxone azithromycin and Flagyl as ordered. Anxiety disorder/panic attacks on Xanax p.r.n. on bupropion Hypothyroidism Hypertension GERD Code status full code DVT prophylaxis SCDs switch to lovenox Subjective Date/time seen: 09/20/25 12:47 Interval history: overnight events noted. pt more sob with cough. moved to IMU. no leg swelling. received iv lasix and iv steroid yesterday. no nausea, vomiting. anxious Review of Systems Review of Systems: All systems reviewed & are unremarkable except as noted in HPI and below (Subjective) Exam Narrative: CONST: Alert and oriented x3 not in acute distress. HENMT: Head is normocephalic and atraumatic. EYES: No scleral icterus. No conjunctival injection or pallor. PERRL. RESP: Diminished breath sounds bilaterally with wheezes, no Crepts. No respiratory distress mildy tachyneic CARDIO: Regular rate Regular rhythm. 2+ DP and radial pulses bilaterally. GI: Nondistended. No tenderness to palpation. Soft. : No CVA tenderness to palpation. SKIN: No rashes or lesions noted on exposed skin. NEURO: Oriented x3. Moves all extremities. EXTREM/MSK/BACK: No pedal edema. PSYCH: anxious Objective Data Vital Signs Vital Signs: Vital Signs - 24 hr 09/19/25 14:38 09/19/25 14:38 09/19/25 14:55 Temperature Pulse Rate 101 H 101 H 97 Respiratory Rate 32 H 32 H 28 H Blood Pressure Pulse Oximetry 95 Oxygen Delivery Nasal Cannula Oxygen Flow Rate 2 09/19/25 15:22 09/19/25 15:30 09/19/25 15:31 Temperature Pulse Rate 116 H 119 H 116 H Respiratory Rate 38 H 24 H Blood Pressure 125/98 H 125/98 H Pulse Oximetry 99 90 Oxygen Delivery Nasal Cannula Oxygen Flow Rate 6 09/19/25 15:37 09/19/25 16:00 09/19/25 16:00 Temperature 98.1 F Pulse Rate 117 H 120 H 120 H Respiratory Rate 24 H 34 H Blood Pressure 186/118 H Pulse Oximetry 99 Oxygen Delivery Oxygen Flow Rate 09/19/25 17:42 09/19/25 18:00 09/19/25 19:04 Temperature Pulse Rate 99 Respiratory Rate Blood Pressure Pulse Oximetry 99 100 Oxygen Delivery Nasal Cannula High Flow Nasal Cannula Oxygen Flow Rate 6 3 09/19/25 20:00 09/19/25 20:00 09/19/25 20:23 Temperature 97.6 F Pulse Rate 95 94 Respiratory Rate 23 H Blood Pressure 153/93 H Pulse Oximetry 97 97 Oxygen Delivery Nasal Cannula Oxygen Flow Rate 3 09/19/25 20:58 09/19/25 20:58 09/19/25 21:08 Temperature Pulse Rate 84 77 Respiratory Rate 26 H 26 H Blood Pressure Pulse Oximetry 94 Oxygen Delivery Nasal Cannula Oxygen Flow Rate 3 09/19/25 22:00 09/20/25 00:00 09/20/25 00:00 Temperature Pulse Rate 91 86 Respiratory Rate Blood Pressure Pulse Oximetry 94 Oxygen Delivery Nasal Cannula Oxygen Flow Rate 3 09/20/25 00:05 09/20/25 00:12 09/20/25 01:09 Temperature 97.7 F Pulse Rate 84 94 86 Respiratory Rate 22 H 22 H 26 H Blood Pressure 172/86 H Pulse Oximetry 93 Oxygen Delivery Oxygen Flow Rate 09/20/25 02:00 09/20/25 03:23 09/20/25 04:00 Temperature Pulse Rate 88 64 Respiratory Rate 22 H Blood Pressure Pulse Oximetry 99 Oxygen Delivery Nasal Cannula Oxygen Flow Rate 3 09/20/25 04:00 09/20/25 04:53 09/20/25 06:00 Temperature 97.8 F Pulse Rate 91 78 98 Respiratory Rate 24 H Blood Pressure 160/59 H Pulse Oximetry 99 Oxygen Delivery Oxygen Flow Rate 09/20/25 07:25 09/20/25 07:38 09/20/25 07:38 Temperature Pulse Rate 91 91 Respiratory Rate 24 H Blood Pressure 159/94 H Pulse Oximetry 100 96 Oxygen Delivery Nasal Cannula Oxygen Flow Rate 3 09/20/25 08:01 09/20/25 11:03 09/20/25 11:13 Temperature Pulse Rate 98 109 H 109 H Respiratory Rate 24 H 44 H 33 H Blood Pressure Pulse Oximetry 99 Oxygen Delivery Oxygen Flow Rate 09/20/25 11:23 09/20/25 12:00 Temperature 97.4 F L Pulse Rate 106 H 100 Respiratory Rate 32 H 24 H Blood Pressure 141/103 H Pulse Oximetry 99 Oxygen Delivery Oxygen Flow Rate Intake/Output Intake/Output: Intake & Output 09/17/25 09/18/25 09/19/25 09/20/25 23:59 23:59 23:59 23:59 Intake Total 3150 640 980 890 Output Total 1000 400 Balance 3150 640 -20 490 Meds/Results Medications: Active Medications Generic Name Dose Route Start Last Admin Trade Name Freq PRN Reason Stop Dose Admin Acetaminophen 650 mg 09/17/25 15:36 09/19/25 17:18 Acetaminophen 325 Mg Tablet PO 650 mg Q6H PRN Administration Mild Pain (1-3) or Fever Albuterol/Ipratropium 3 ml 09/19/25 20:00 09/20/25 11:03 Ipratropium 0.5 Mg/Albuterol Sulfate 2.5 Mg (Base) Ampul.Neb 3 Ml INHALATION 3 ml Q4HRT VINCENT Administration Alprazolam 0.25 mg 09/20/25 14:00 Alprazolam (*Crx) 0.25 Mg Tablet BY MOUTH Q4H PRN Anxiety Budesonide 0.5 mg 09/19/25 20:00 09/20/25 07:37 Budesonide Respule Neb 0.5 Mg/2 Ml Amp INHALATION 0.5 mg Q12HRT VINCENT Administration Bupropion HCl 150 mg 09/21/25 09:00 Bupropion Hcl Xl (24 Hr) 150 Mg Tabcr PO QAM VINCENT Azithromycin 500 mg/ Sodium 250 mls @ 250 mls/hr 09/17/25 23:00 09/20/25 00:05 Chloride IVPB 09/20/25 23:59 Infused Q24H VINCENT Infusion Metronidazole 500 mg in 100 mls @ 100 mls/hr 09/17/25 13:00 09/20/25 06:30 Flagyl 500 Mg/Iso Soln 100 Ml IVPB Infused Q8HR VINCENT Infusion Meropenem 1 gm/ Sodium 100 mls @ 200 mls/hr 09/20/25 09:00 09/20/25 10:49 Chloride IVPB 200 mls/hr Q8H VINCENT Administration Vancomycin HCl 1,000 mg/ 250 mls @ 250 mls/hr 09/21/25 10:00 Sodium Chloride IVPB Q24H VINCENT Ibuprofen 600 mg 09/17/25 20:24 09/19/25 21:36 Ibuprofen 600 Mg Tablet PO 600 mg Q6H PRN Administration Mild Pain (1-3) or Fever Levalbuterol HCl 1 puff 09/18/25 08:20 Levalbuterol Hfa (*Sp) 15 Gm Inhaler INHALATION On Hold: 09/18/25 17:13 PRN PRN Comment: PATIENT ON ALBUTEROL Shortness Of Breath NEBS Levothyroxine Sodium 75 mcg 09/18/25 06:30 09/20/25 05:29 Levothyroxine Sodium 75 Mcg Tablet PO 75 mcg DAILY@0630 VINCENT Administration Methylprednisolone Sodium Succinate 60 mg 09/20/25 00:00 09/20/25 11:49 Methylprednisolone Sod Succ 125 Mg Vial IV PUSH 60 mg Q6HR VINCENT Administration Metoprolol Succinate 50 mg 09/18/25 09:00 09/20/25 10:39 Metoprolol Succinate Ext Rel 50 Mg Tabcr PO 50 mg QAM VINCENT Administration Miscellaneous Information 1 each 09/18/25 00:01 Darifenacin Is Nonformulary. Can She Use Home Supply? Or We Have Ditropan Xl 5mg Daily XX 10/18/25 00:00 CLARIFY VINCENT Miscellaneous Information 1 each 09/18/25 00:01 May Use Home Systane Eye Drops Send To Pharmacy For Verification XX 10/18/25 00:00 CLARIFY VINCENT Non-Formulary Medication 15 mg 09/18/25 09:00 Darifenacin PO 10/18/25 08:59 DAILY VINCENT Non-Formulary Medication 1 drop 09/18/25 17:00 Systane EACH EYE 10/18/25 16:59 TID VINCENT Pantoprazole Sodium 20 mg 09/18/25 09:00 09/20/25 10:40 Pantoprazole Sod Sesquihydrate 20 Mg Tab PO 20 mg QAM VINCENT Administration Prednisolone Acetate 1 drop 09/18/25 09:00 09/20/25 10:42 Prednisolone Acetate 1% Ophth 5 Ml LEFT EYE 1 drop TID VINCENT Administration Roflumilast 500 mcg 09/18/25 09:00 09/20/25 10:40 Roflumilast 500 Mcg Tablet PO 500 mcg DAILY VINCENT Administration Saccharomyces Boulardii 250 mg 09/19/25 13:00 09/20/25 10:40 Saccharomyces Boulardii 250 Mg Capsule PO 250 mg TID VINCENT Administration Fluticasone/Salmeterol 1 puff 09/17/25 20:00 09/19/25 07:59 Fluticasone/Salmeterol 230-21 Mcg Inhaler 1 Puff INHALATION 1 puff On Hold: 09/19/25 09:15 Q12HRT VINCENT Administration Umeclidinium [place] 1 puff 09/19/25 08:00 Umeclidinium [place] 62.5 Mcg Ellipta INHALATION On Hold: 09/19/25 08:00 DAILYRT VINCENT Comment: HOLD WHILE ON DUONEBS Radiology Results: ITS Impressions Chest CT 09/17/25 08:37 IMPRESSION: 1. Advanced emphysematous changes in the lungs. 2. No gross acute intrathoracic process identified. NOTE: Preliminary radiology report provided by [facility] radiologist. Chest X-Ray 09/19/25 13:40 IMPRESSION: 1. No gross interval change in bibasilar markings which could represent chronic interstitial lung disease versus patchy areas of developing pneumonitis/pneumonia. Labs Labs: Laboratory Results - last 24 hr 09/19/25 09/19/25 09/19/25 15:25 15:30 23:59 Puncture Site Left brachial ABG pH 7.305 L ABG pCO2 50.7 H ABG pO2 99.9 ABG PO2/FiO2 Ratio 3.12 ABG HCO3 24.7 ABG O2 Saturation 96.9 ABG O2 Content 19.3 ABG Base Excess -2.2 A-a Gradient 68.9 Oxyhemoglobin 96.4 Total Hemoglobin 14.2 O2 Delivery Device Nasal cannula O2 Liters/Min 3.5 FiO2 32 POC Capillary Glucose 108 H C-Reactive Protein NT-Pro-B Natriuret Pep Procalcitonin C. difficile (PCR) Negative 09/20/25 09/20/25 09:26 10:53 Puncture Site Left radial ABG pH 7.415 ABG pCO2 38.9 ABG pO2 89.7 ABG PO2/FiO2 Ratio 2.80 ABG HCO3 24.4 ABG O2 Saturation 97.0 ABG O2 Content 19.2 ABG Base Excess 0.0 A-a Gradient 92.9 Oxyhemoglobin 95.7 Total Hemoglobin 14.2 O2 Delivery Device Nasal cannula O2 Liters/Min 3.0 FiO2 32 POC Capillary Glucose C-Reactive Protein < 0.5 NT-Pro-B Natriuret Pep 611 H Procalcitonin 0.0 C. difficile (PCR)
--- NOTE | 2025-09-20 12:54 | PC.NURSE ---
PATIENT RESTING COMFORTABLY AND NOW ON BIPAP. NO SIGNS OF DISTRESS, VITALS STABLE, NO COMPLAINTS AT THIS TIME
--- NOTE | 2025-09-20 12:58 | PM.CNPUL ---
Assessment and Plan Assessment and plan (1) COPD exacerbation: Code(s): J44.1 - Chronic obstructive pulmonary disease with (acute) exacerbation Status: Resolved Assessment and Plan: patient tells me she has a history of COPD for 17 years. She quit smoking 17 years ago. I have no PFTs. CT scan of the chest on 09/17/2025 demonstrates severe apical predominant panlobular emphysema. she tells me she is on no oxygen at home. Patient presents with wheezing, shortness of breath, hypoxic respiratory failure after eating and talking with an aspiration event. 09/20/25: When I enter the room the patient was in moderate respiratory distress in a tripod position with expiratory wheezes. Stat ABG was obtained and prior to blood gas results, the atient was placed on noninvasive ventilation with the AVAPS mode for her acute respiratory distress. Settings were adjusted to comfort resulting in: rate of 20, tidal volume 525, EPAP 5, minimal inspiratory pressure 6, maximal inspiratory pressure 25, inspiratory time 1.0, rise of 3 and 32% FiO2. Patient improved with this treatment. Limited history was obtained. BNP has increased from 171 on 09/16/2025 to 611 today. Procalcitonin 0.0. CRP is unchanged from 09/16/2025 at less than 0.5. Plan: Agree with treatment for COPD exacerbation. Currently the patient is on Solu-Medrol 60 mg IV q.6 hours, day 5 steroids. will continue DuoNebs q.4 hours. Will discontinue her inhalers as DuoNebs and systemic steroids are in place. Continue Daliresp [address] angiogram of the chest to assess for PE, foreign body, and focal infiltrates that would be consistent with a bacterial infection. Currently she recieved ceftriaxone 09/17/2025 through 09/19/25. Is on Azithromycin since 09/17/2025, day 4. Metronidazole started 09/17/25, day 4. Vancomycin started 09/20/2025. Meropenem started 09/20/2025. I will send extended respiratory pathogen panel, urine for Legionella, urine for pneumococcal antigen, serum mycoplasma IgM. Continue noninvasive ventilation with the AVAPS mode and settings as above p.r.n. during the day. Patient should wear this tonight. I will check an echocardiogram to assess LV function, RV function, valvular function and PASP. Discussed with family in room and Dr. Logan, will follow with you. History of Present Illness History of Present Illness Consult date: 09/20/25 Chief complaint: Respiratory failure Narrative: 09/20/2025: this is a new pulmonary consult for respiratory distress. 70-year-old with a history of COPD and anxiety. When I enter the room the patient was in moderate respiratory distress in a tripod position with expiratory wheezes. Stat ABG was obtained and prior to blood gas results, the atient was placed on noninvasive ventilation with the AVAPS mode for her acute respiratory distress. Settings were adjusted to comfort resulting in: rate of 20, tidal volume 525, EPAP 5, minimal inspiratory pressure 6, maximal inspiratory pressure 25, inspiratory time 1.0, rise of 3 and 32% FiO2. Patient improved with this treatment. Limited history was obtained. 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 She quit smoking 16 years ago. Patient tells me on 09/15/2025 she choked while eating and talking. Prior to this event she had no change in her chronic respiratory status. No change in her shortness of breath, cough, phlegm production prior to this event. she presented to the emergency room on 09/16/2025 at 11:00 p.m.. Blood pressure 145/93, respirations 23, heart rate 101. White blood cell count 13.1 was 0% eosinophils. COVID, influenza, RSV RT PCR assay negative.Patient had increased work of breathing with diminished breath sounds and prolonged expiratory phase the with a blood gas on 80% of 7.33/ 43/128. Patient was treated with BiPAP, Solu-Medrol, ceftriaxone, azithromycin, metronidazole and bronchodilators and admitted to the floor. 09/17/2025: Patient was off the BiPAP on 5 L nasal cannula her breathing had improved. Her cough had Improved. 09/18/2025 patient was requiring 2 L nasal cannula, still had shortness of breath, had some panic attacks earlier today and takes Xanax usually. She had dyspnea on exertion. 09/19/2025: Patient still feels short of breath. Remained on 2 L. Cough was present. No wheezing. 09/20/2025: Patient had worsening wheezing and shortness of breath. I treated her as above. BNP Has increased from 171 on 09/16/2025 to 611 today. Procalcitonin 0.0. CRP is unchanged from 09/16/2025 at less than 0.5. Data: 09/17/25: EXAMINATION:CT diagnostic chest wo con INDICATION: Shortness of breath COMPARISON: December 23, 2013 FINDINGS: Advanced emphysematous changes throughout the lungs noted with no consolidation effusion or pneumothorax. Mild scattered interstitial prominence noted but no evidence of architectural distortion, bronchiectasis, air cysts formation or advanced fibrotic changes. Scattered benign-appearing calcified small granulomas nodules. Heart and great vessels normal size with no bulky lymphadenopathy. Central large airways patent. The bones appear intact. No acute abnormality seen in the visualized portions of the upper chest or extrathoracic soft tissues. IMPRESSION: 1. Advanced emphysematous changes in the lungs. 2. No gross acute intrathoracic process identified. Review of Systems Constitutional: Constitutional: Reports no additional constitutional complaints Eyes: Eyes: Reports no additional eye complaints ENT: Reports system reviewed and no additional complaints, except as documented Cardiovascular: Cardiovascular: Reports no additional cardiovascular complaints Respiratory: Respiratory: Reports no additional respiratory complaints Gastrointestinal: Gastrointestinal: Reports no additional gastrointestinal complaints Musculoskeletal: Musculoskeletal: Reports no additional musculoskeletal complaints Neurologic: Reports system reviewed and no additional complaints, except as documented Psychiatric: Psychiatric: Reports no additional psychiatric complaints Endocrine: Endocrine: Reports no additional endocrine complaints Hematologic/Lymphatic: Hematologic/Lymphatic: Reports no additional hematologic/lymphatic complaints Allergic/Immunologic: Allergic/Immunologic: Reports no additional allergic/immunologic complaints [facility] Past Medical History Medical History (Updated 09/20/25 @ 13:14 by Jorge Alberto Shafer MD) COPD exacerbation Acute bronchitis Insomnia BMI 26.0-26.9,adult Hypertriglyceridemia Bilateral hip pain Bilateral knee pain Right knee pain COVID-19 (06/18/23) 2nd episode test positive 06/19/2023 Acute non-recurrent maxillary sinusitis Overactive bladder Osteopenia after menopause DEXA scan -1.9 of the lumbar spine and -1.2 left hip 07/23/2022. T-score -1.9 at the spine and -2.1 of the left hip on 08/02/2023. COVID-19 (04/11/22) fully vaccinated and tested positive at home at onset of symptoms 04/11/2022. Patient not a candidate for Paxlovid because of moderate to severe interactions to 5 of her current medicines. Obesity (BMI 30.0-34.9) Breast cancer screening normal mammogram 12/11/2021 with recheck in 1 year. normal mammogram 02/11/2023. Normal mammogram 05/23/2024. Normal on 06/18/2025. BMI 29.0-29.9,adult Essential (primary) hypertension BMI 30.0-30.9,adult Encounter for wellness examination in adult UTI (urinary tract infection) Colon cancer screening Intermittent palpitations Chronic depression Surgical History Surgical History (System 09/17/25 @ 09:12 by Rhonda Hall) Hx of detached retina repair December 2024 Family History Family History Father Hypertension Mother Family history of pancreatic disease, Onset Age: 82 Social History Social History (System 09/17/25 @ 09:12 by Rhonda Hall) Smoking status: Former smoker Tobacco type: cigarettes Second hand tobacco smoke exposure: No Alcohol intake: never Substance use: never Substance use type: does not use Lack of Transportation: No Lack of Food: Never True Current Housing: I Have Housing Concerned About Future Housing: No Difficulty Paying Gas/Electric Bills: No Difficulty Paying for Meds: No Currently Unemployed: No Education: Bachelor's Degree Difficulty w/ Childcare or Family Care: No Spiritual care concerns: No Meds Home Medications and Allergies Home Medications ?Medication ?Instructions ?Recorded ?Confirmed ?Type omeprazole 20 mg tablet,delayed 20 mg PO DAILY 07/15/20 09/17/25 History release fluticasone 500 mcg-salmeterol 50 1 inh inhalation Q12H #180 ea 05/22/24 09/17/25 Rx mcg/dose blistr powdr for inhalation (Advair Diskus) levothyroxine 75 mcg tablet 75 mcg PO DAILY #90 tabs 07/27/25 09/17/25 Rx (Synthroid) azithromycin 250 mg tablet See Rx Instructions PO .COMPLEX #6 09/16/25 09/17/25 Rx (Zithromax Z-Joaquín) tabs alprazolam 0.25 mg tablet 0.25 mg PO TID 09/17/25 09/17/25 History bupropion HCl 150 mg 24 hr tablet, 150 mg PO DAILY 09/17/25 09/17/25 History extended release darifenacin 15 mg tablet,extended 15 mg PO DAILY 09/17/25 09/17/25 History release 24 hr levalbuterol tartrate 45 1 puff inhalation PRN PRN 09/17/25 09/17/25 History mcg/actuation aerosol inhaler shortness of breath metoprolol succinate 50 mg 50 mg PO DAILY 09/17/25 09/17/25 History tablet,extended release 24 hr prednisolone acetate 1 % eye 1 drp LEFT EYE TID 09/17/25 09/17/25 History drops,suspension prednisone 20 mg tablet 20 mg PO DAILY 09/17/25 09/17/25 History roflumilast 500 mcg tablet 500 mcg PO DAILY 09/17/25 09/17/25 History tiotropium bromide 18 mcg capsule 1 cap inhalation PRN PRN SOB 09/17/25 09/17/25 History with inhalation device (Spiriva with HandiHaler) Allergies Allergy/AdvReac Type Severity Reaction Status Date / Time Penicillins Allergy Unknown Dermatitis Verified 09/17/25 11:34 Vital Signs Vital Signs - 24 hr 09/19/25 14:38 09/19/25 14:38 09/19/25 14:55 Temperature Pulse Rate 101 H 101 H 97 Respiratory Rate 32 H 32 H 28 H Blood Pressure Pulse Oximetry 95 Oxygen Delivery Nasal Cannula Oxygen Flow Rate 2 09/19/25 15:22 09/19/25 15:30 09/19/25 15:31 Temperature Pulse Rate 116 H 119 H 116 H Respiratory Rate 38 H 24 H Blood Pressure 125/98 H 125/98 H Pulse Oximetry 99 90 Oxygen Delivery Nasal Cannula Oxygen Flow Rate 6 09/19/25 15:37 09/19/25 16:00 09/19/25 16:00 Temperature 36.7 C Pulse Rate 117 H 120 H 120 H Respiratory Rate 24 H 34 H Blood Pressure 186/118 H Pulse Oximetry 99 Oxygen Delivery Oxygen Flow Rate 09/19/25 17:42 09/19/25 18:00 09/19/25 19:04 Temperature Pulse Rate 99 Respiratory Rate Blood Pressure Pulse Oximetry 99 100 Oxygen Delivery Nasal Cannula High Flow Nasal Cannula Oxygen Flow Rate 6 3 09/19/25 20:00 09/19/25 20:00 09/19/25 20:23 Temperature 36.4 C Pulse Rate 95 94 Respiratory Rate 23 H Blood Pressure 153/93 H Pulse Oximetry 97 97 Oxygen Delivery Nasal Cannula Oxygen Flow Rate 3 09/19/25 20:58 09/19/25 20:58 09/19/25 21:08 Temperature Pulse Rate 84 77 Respiratory Rate 26 H 26 H Blood Pressure Pulse Oximetry 94 Oxygen Delivery Nasal Cannula Oxygen Flow Rate 3 09/19/25 22:00 09/20/25 00:00 09/20/25 00:00 Temperature Pulse Rate 91 86 Respiratory Rate Blood Pressure Pulse Oximetry 94 Oxygen Delivery Nasal Cannula Oxygen Flow Rate 3 09/20/25 00:05 09/20/25 00:12 09/20/25 01:09 Temperature 36.5 C Pulse Rate 84 94 86 Respiratory Rate 22 H 22 H 26 H Blood Pressure 172/86 H Pulse Oximetry 93 Oxygen Delivery Oxygen Flow Rate 09/20/25 02:00 09/20/25 03:23 09/20/25 04:00 Temperature Pulse Rate 88 64 Respiratory Rate 22 H Blood Pressure Pulse Oximetry 99 Oxygen Delivery Nasal Cannula Oxygen Flow Rate 3 09/20/25 04:00 09/20/25 04:53 09/20/25 06:00 Temperature 36.6 C Pulse Rate 91 78 98 Respiratory Rate 24 H Blood Pressure 160/59 H Pulse Oximetry 99 Oxygen Delivery Oxygen Flow Rate 09/20/25 07:25 09/20/25 07:38 09/20/25 07:38 Temperature Pulse Rate 91 91 Respiratory Rate 24 H Blood Pressure 159/94 H Pulse Oximetry 100 96 Oxygen Delivery Nasal Cannula Oxygen Flow Rate 3 09/20/25 08:01 09/20/25 11:03 09/20/25 11:13 Temperature Pulse Rate 98 109 H 109 H Respiratory Rate 24 H 44 H 33 H Blood Pressure Pulse Oximetry 99 Oxygen Delivery Oxygen Flow Rate 09/20/25 11:23 09/20/25 12:00 Temperature 36.3 C L Pulse Rate 106 H 100 Respiratory Rate 32 H 24 H Blood Pressure 141/103 H Pulse Oximetry 99 Oxygen Delivery Oxygen Flow Rate Exam Const: General: cooperative, healthy appearing and in distress Orientation/consciousness: oriented to person, oriented to place and oriented to time Other: patient was in distress and placed on Noninvasive ventilation emergently. HENMT: Head: normal to inspection Ears: hearing grossly normal bilaterally Eyes: General: appearance normal, both eyes and all related structures Neck: Neck: normal visual inspection Chest: Chest palpation & inspection: normal inspection of the chest Resp: Effort & Inspection: normal respiratory effort and able to speak in complete sentences Auscultation: no crackles, no rales, no rhonchi, wheezes and lung sounds not diminished Other: bilateral expiratory wheezes that resolved with a DuoNeb and noninvasive ventilation Cardio: Jugular venous distension: no JVD GI: Inspection: normal to inspection GI Palp: No abdominal tenderness Skin: General skin exam: normal color Neuro: General: oriented to person, oriented to place and oriented to time Extrem: General: normal to inspection and no edema Psych: Appearance: grossly normal Results Laboratory Findings 09/19/25 07:15 09/19/25 07:15 ABG, PT/INR, D-dimer: ABG ABG pH 7.415 (7.350-7.450) 09/20/25 10:53 ABG pCO2 38.9 mmHg (35.0-45.0) 09/20/25 10:53 ABG pO2 89.7 mmHg (80.0-100.0) 09/20/25 10:53 ABG O2 Saturation 97.0 % (95.0-100.0) 09/20/25 10:53 PT/INR, D-dimer PT 14.0 Seconds (11.1-14.7) 09/16/25 23:46 INR 1.1 09/16/25 23:46 Abnormal lab findings: Abnormal Labs 09/16/25 09/16/25 09/17/25 22:55 23:46 07:22 WBC 13.1 H 12.2 H RBC 4.13 L 3.80 L Hgb MCV MCHC Immature Gran % (Auto) 0.9 H 2.3 H Neut % (Auto) 87.7 H 91.4 H Lymph % (Auto) 6.8 L 5.1 L [place] % (Auto) 1.0 L Baso % (Auto) Lymph # (Auto) 0.89 L 0.62 L [place] # (Auto) Abs Immat Gran (auto) 0.12 H 0.28 H Absolute Neuts (auto) 11.5 H 11.1 H ABG pH 7.329 L ABG pCO2 ABG pO2 127.9 H Chloride 108 H Anion Gap BUN Creatinine 0.54 L Glucose 183 H POC Capillary Glucose Calcium Magnesium 3.2 H AST NT-Pro-B Natriuret Pep 171 H Lipase 19 L 09/17/25 09/18/25 09/19/25 07:23 05:35 07:15 WBC 20.8 H 16.4 H RBC 3.77 L 3.73 L Hgb 11.9 L 11.9 L MCV 101.9 H 102.4 H MCHC 31.0 L 31.2 L Immature Gran % (Auto) 1.5 H 1.3 H Neut % (Auto) 91.2 H 79.3 H Lymph % (Auto) 4.0 L 10.8 L [place] % (Auto) Baso % (Auto) 0.1 L Lymph # (Auto) 0.83 L [place] # (Auto) 0.7 H 1.4 H Abs Immat Gran (auto) 0.32 H 0.22 H Absolute Neuts (auto) 19.0 H 13.0 H ABG pH ABG pCO2 ABG pO2 Chloride 115 H 114 H 112 H Anion Gap 2 L BUN 18 H 28 H D Creatinine 0.51 L 0.50 L 0.67 L Glucose 165 H 125 H POC Capillary Glucose Calcium 7.6 L 8.1 L 8.3 L Magnesium 2.5 H 2.5 H AST 40 H NT-Pro-B Natriuret Pep Lipase 09/19/25 09/19/25 09/20/25 15:25 15:30 09:26 WBC RBC Hgb MCV MCHC Immature Gran % (Auto) Neut % (Auto) Lymph % (Auto) [place] % (Auto) Baso % (Auto) Lymph # (Auto) [place] # (Auto) Abs Immat Gran (auto) Absolute Neuts (auto) ABG pH 7.305 L ABG pCO2 50.7 H ABG pO2 Chloride Anion Gap BUN Creatinine Glucose POC Capillary Glucose 108 H Calcium Magnesium AST NT-Pro-B Natriuret Pep 611 H Lipase Diagnostic Findings Additional studies: ITS Impressions Chest X-Ray 09/17/25 08:22 IMPRESSION: 1. Chronic linear discoid atelectasis/scarring the right mid and left lower lung zones. Chest CT 09/17/25 08:37 IMPRESSION: 1. Advanced emphysematous changes in the lungs. 2. No gross acute intrathoracic process identified. NOTE: Preliminary radiology report provided by [facility] radiologist. Chest X-Ray 09/19/25 13:40 IMPRESSION: 1. No gross interval change in bibasilar markings which could represent chronic interstitial lung disease versus patchy areas of developing pneumonitis/pneumonia.
--- NOTE | 2025-09-20 13:08 | ECHO_ITS ---
Patient Info Name: Nicole Lloyd Age: 70 years : 1955 Gender: Female Ht: 63 in Wt: 119 lbs BSA: 1.55 m2 HR: 100 bpm BP: 141 / 103 mmHg Technical Quality: Fair Exam Date: 09/20/2025 3:45 PM Patient Status: I Admit Date: 09/17/2025 Exam Type: CA echo dop color flow w con Complete two-dimensional, color flow and Doppler transthoracic echocardiogram is performed with contrast to opacify the left ventricle and to improve the deliniation of the left ventricle endocardial borders. Staff Referring Physician: Robin Logan Focus Puller: Tremayne Pineda III Attending Provider: Juliana Barrett Contrast/Agitated Saline Contrast/Ag. Saline: Definity Amount: 2.00 ml Administered By: Tremayne Pineda III Existing IV Access: Yes IV Access Condition: patent with no signs of infiltration Summary 1. Definity contrast administered improved wall motion interpretation. 2. Left ventricular chamber dimension is normal. 3. Left ventricular systolic function is normal, estimated at 65-70. 4. The left ventricular diastolic function is grade I diastolic dysfunction. 5. E/e' 12 is mildly elevated. 6. There is mild aortic valve sclerosis. 7. There is trace aortic valve regurgitation. 8. There is moderate tricuspid valve regurgitation. 9. Mild pulmonary hypertension, estimated pulmonary arterial systolic pressure is 43 mmHg. Left Ventricle E/e' 12 is mildly elevated. Left ventricular chamber dimension is normal. Left ventricular systolic function is normal, estimated at 65-70. The left ventricular diastolic function is grade I diastolic dysfunction. Definity contrast administered improved wall motion interpretation. Right Ventricle Right ventricular chamber dimension is normal. Right ventricular systolic function is normal. Left Atria Left atrial chamber dimension is normal. Right Atria Right atrial chamber dimension is normal. Aortic Valve The aortic valve is probable trileaflet. There is mild aortic valve sclerosis. There is no aortic valve stenosis. There is trace aortic valve regurgitation. Pulmonic Valve There is no pulmonic regurgitation. Mitral Valve There is no mitral valve stenosis. There is no mitral valve regurgitation. Tricuspid Valve There is moderate tricuspid valve regurgitation. Mild pulmonary hypertension, estimated pulmonary arterial systolic pressure is 43 mmHg. Pericardium/Pleural There is no pericardial effusion. Inferior Vena Cava Normal inferior vena cava with >50% collapse upon inspiration consistent with normal right atrial pressure, 5 mmHg. Aorta The aortic root size at the sinus of Valsalva is normal. Left Ventricular Outflow Tract Name Value Normal LVOT 2D LVOT Diameter 2.0 cm LVOT Doppler LVOT Peak Velocity 93 cm/s LVOT Peak Gradient 3 mmHg LVOT Mean Gradient 2 mmHg LVOT VTI 18 cm LVOT VTI/AV VTI Ratio 0.8 LVOT Stroke Volume 56 ml LVOT CO 5.1 l/min LVOT CI 3.3 l/min/m2 Pulmonic Valve Name Value Normal PV Doppler PV Peak Velocity 149 cm/s PV Peak Gradient 9 mmHg PV Mean Gradient 3 mmHg Mitral Valve Name Value Normal MV Doppler MV Peak Gradient 3 mmHg MV Mean Gradient 2 mmHg MV Area (Cont Eq VTI) 3.9 cm2 MV Diastolic Function MV E Peak Velocity 67 cm/s MV A Peak Velocity 82 cm/s MV E/A 0.8 MV Decel Time (PW) 150 ms MV Annular TDI MV E/e' (Septal) 12.2 MV E/e' (Lateral) 12.5 MV E/e' (Average) 12.3 Tricuspid Valve Name Value Normal TV Regurgitation Doppler TR Peak Velocity 307 cm/s TR Peak Gradient 38 mmHg Estimated PAP/RSVP RA Pressure 5 mmHg <=5 PA Systolic Pressure 43 mmHg <36 RV Systolic Pressure 43 mmHg <36 TV Annular TDI TV Lateral Jessica s' Velocity 13.4 cm/s >=9.5 Aortic Valve Name Value Normal AV Doppler AV Peak Velocity 148 cm/s AV Peak Gradient 8 mmHg AV Mean Gradient 4 mmHg AV VTI 24 cm AV Area (Cont Eq VTI) 2.4 cm2 >=3.0 AV Area (Cont Eq Mathew) 1.9 cm2 AV DI (Mathew) 0.63 AV Regurgitation 2D LVOT Area 3.1 cm2 Ventricles Name Value Normal LV Dimensions 2D/MM IVS Diastolic Thickness (2D) 0.6 cm 0.6-1.0 LVID Diastole (2D) 3.1 cm 3.8-5.2 LVIW Diastolic Thickness (2D) 0.6 cm 0.6-0.9 LVID Systole (2D) 1.9 cm 2.2-3.5 LVOT Diameter 2.0 cm LV Mass (2D Cubed) 43.56 g 67.00-162.00 LV Mass Index (2D Cubed) 28 g/m2 43-95 Relative Wall Thickness (2D) 0.42 <=0.42 LV Fractional Shortening/Ejection Fraction 2D/MM LV Fractional Shortening (2D) 38 % 27-45 LV EF (2D Teichholz) 69 % LV Diastolic Volume (4C MOD) 31 ml LV EF (4C MOD) 70 % LV Diastolic Volume (2C MOD) 42 ml LV EF (2C MOD) 87 % LV Diastolic Volume (BP MOD) 36 ml 46-106 LV Diastolic Volume Index (BP MOD) 23 ml/m2 29-61 LV Systolic Volume (BP MOD) 7 ml 14-42 LV Systolic Volume Index (BP MOD) 5 ml/m2 8-24 LV EF (BP MOD) 80 % 54-74 LV Diastolic Length (4C) 5.7 cm LV Systolic Length (4C) 4.6 cm LV Stroke Volume (4C MOD) 22 ml Atria Name Value Normal LA Dimensions LA Volume (4C A-L) 22 ml LA Volume (BP A-L) 27 ml RA Dimensions RA Systolic Major [place] Length (4C) 4.1 cm 2.2-2.8 RA Area (4C) 13.1 cm2 <=18.0 Report Signatures
[2025-09-20 13:11] LABS: Hematocrit 41.5 % (37.0-47.0); Hemoglobin 13.5 g/dL (12.0-15.0); Immature Granulocyte Percent A 2.3 % (0-0.5); Lymphocytes Absolute Auto 0.51 K/mm3 (0.9-3.2); Mean Corpuscular HGB Conc 32.5 g/dl (32-36); Mean Corpuscular Hemoglobin 31.8 pg (26-34); Mean Corpuscular Volume 97.9 fl (80-100); Nucleated Red Blood Cells Absolute Auto 0.000 K/mm3 (0.0-0.012); Nucleated Red Blood Cells Perc 0.0 % (0.0-0.2); Platelet Count Result 302 k/mm3 (150-375); Red Blood Count 4.24 M/mm3 (4.2-5.4); White Blood Count 11.3 K/mm3 (4.5-10.0)
[2025-09-20 13:18] LABS: Alanine Aminotransferase 37 U/L (6-35); Albumin Level 4.3 g/dL (3.5-5.1); Alkaline Phosphatase 73 U/L (38-126); Anion Gap 9 mmol/L (4-12); Aspartate Amino Transferase 36 U/L (14-36); Bilirubin,Total 0.6 mg/dL (0.2-1.3); Blood Urea Nitrogen 22 mg/dL (7-17); Calcium 8.7 mg/dL (8.4-10.2); Carbon Dioxide 25 mmol/L (22-30); Chloride 106 mmol/L (98-107); Estimated CRCL calculation 66 ml/min; Estimated Glomerular Filt Rate > 60; Glucose 116 mg/dL (65-110); Magnesium 2.3 mg/dL (1.6-2.3); Potassium 3.4 mmol/L (3.4-5.0); Sodium 140 mmol/L (137-145); Total Protein 7.3 g/dL (6.3-8.2)
[2025-09-20] MEDS: FUROSEMIDE INJ 40 MG/4 ML VIAL IV PUSH (14:03)
[2025-09-20] MEDS: ALPRAZolam (*CRX) 0.25 MG TABLET BY MOUTH ×3 (14:04→22:15)
[2025-09-20] MEDS: PERFLUTREN LIPID MICROSPHERES 1.5 ML VIAL DILUTED TO 10 ML TOTAL VOLUME IV PUSH (16:43)
--- NOTE | 2025-09-20 16:43 | IVDEFINITY ---
Prior to administration of IV Definity the patient was educated on the risks and benefits of the imaging enhancing agent including potential adverse side effects. The patient verbalized understanding. Allergies were verified. No exclusion criteria were identified and at least one of the following inclusion criteria were met: 1) physician request, 2) patient technically difficult to image (per the [place] [employer] guidelines of two or more segments not discernable within the apical view), or 3) questionable left ventricular function. ?
[2025-09-20] MEDS: IBUPROFEN 600 MG TABLET PO (18:24)
[2025-09-20] MEDS: AZITHROMYCIN IV 500 MG in SODIUM CHLORIDE 0.9% IV 250 ML IVPB (22:39)
[2025-09-21] VITALS (38 sets, daily range): BP systolic 122–177; BP diastolic 57–97; PULSE 65–112; RESP 18–32; TEMP 36–36.8; O2SAT 90–100
[2025-09-21] MEDS: MEROPENEM 1 GM in SODIUM CHLORIDE 0.9% IV 100 ML 200 ML IVPB ×3 (00:04→16:37)
[2025-09-21] MEDS: IPRATROPIUM 0.5 MG/ALBUTEROL SULFATE 2.5 MG (BASE) AMPUL.NEB 3 ML INHALATION ×6 (00:55→21:04)
[2025-09-21] MEDS: LEVOTHYROXINE SODIUM 75 MCG TABLET PO (06:13)
[2025-09-21] MEDS: ALPRAZolam (*CRX) 0.25 MG TABLET BY MOUTH ×3 (06:22→16:39)
[2025-09-21 06:33] LABS: Hematocrit 40.4 % (37.0-47.0); Hemoglobin 13.0 g/dL (12.0-15.0); Immature Granulocyte Percent A 1.2 % (0-0.5); Lymphocytes Absolute Auto 0.79 K/mm3 (0.9-3.2); Mean Corpuscular HGB Conc 32.2 g/dl (32-36); Mean Corpuscular Hemoglobin 31.5 pg (26-34); Mean Corpuscular Volume 97.8 fl (80-100); Nucleated Red Blood Cells Absolute Auto 0.020 K/mm3 (0.0-0.012); Nucleated Red Blood Cells Perc 0.2 % (0.0-0.2); Platelet Count Result 302 k/mm3 (150-375); Red Blood Count 4.13 M/mm3 (4.2-5.4); White Blood Count 13.0 K/mm3 (4.5-10.0)
[2025-09-21 06:56] LABS: INR 1.2; Partial Thromboplastin Time 22.9 Seconds (22.3-36.8); Prothrombin Time 15.2 Seconds (11.1-14.7)
[2025-09-21 07:03] LABS: Alanine Aminotransferase 34 U/L (6-35); Albumin Level 3.9 g/dL (3.5-5.1); Alkaline Phosphatase 60 U/L (38-126); Anion Gap 4 mmol/L (4-12); Aspartate Amino Transferase 35 U/L (14-36); Bilirubin,Total 0.7 mg/dL (0.2-1.3); Blood Urea Nitrogen 33 mg/dL (7-17); Calcium 8.9 mg/dL (8.4-10.2); Carbon Dioxide 28 mmol/L (22-30); Chloride 106 mmol/L (98-107); Estimated CRCL calculation 61 ml/min; Estimated Glomerular Filt Rate > 60; Glucose 124 mg/dL (65-110); Magnesium 2.6 mg/dL (1.6-2.3); Potassium 3.5 mmol/L (3.4-5.0); Sodium 138 mmol/L (137-145); Total Protein 6.6 g/dL (6.3-8.2)
[2025-09-21] MEDS: BUDESONIDE RESPULE NEB 0.5 MG/2 ML AMP INHALATION (07:31)
[2025-09-21] MEDS: METOPROLOL SUCCINATE EXT REL 50 MG TABCR PO (09:44)
--- NOTE | 2025-09-21 10:21 | PM.PNPUL ---
Progress Note: A&P Assessment and Plan (1) COPD exacerbation: Code(s): J44.1 - Chronic obstructive pulmonary disease with (acute) exacerbation Status: Resolved Assessment and Plan: patient tells me she has a history of COPD for 17 years. She quit smoking 17 years ago. I have no PFTs. CT scan of the chest on 09/17/2025 demonstrates severe apical predominant panlobular emphysema. she tells me she is on no oxygen at home. Patient presents with wheezing, shortness of breath, hypoxic respiratory failure after eating and talking with an aspiration event. 09/20/25: When I enter the room the patient was in moderate respiratory distress in a tripod position with expiratory wheezes. Stat ABG was obtained and prior to blood gas results, the atient was placed on noninvasive ventilation with the AVAPS mode for her acute respiratory distress. Settings were adjusted to comfort resulting in: rate of 20, tidal volume 525, EPAP 5, minimal inspiratory pressure 6, maximal inspiratory pressure 25, inspiratory time 1.0, rise of 3 and 32% FiO2. Patient improved with this treatment. Limited history was obtained. BNP has increased from 171 on 09/16/2025 to 611 today. Procalcitonin 0.0. CRP is unchanged from 09/16/2025 at less than 0.5. Plan: Agree with treatment for COPD exacerbation. Currently the patient is on Solu-Medrol 60 mg IV q.6 hours, day 5 steroids. will continue DuoNebs q.4 hours. Will discontinue her inhalers as DuoNebs and systemic steroids are in place. Continue Daliresp [address] angiogram of the chest to assess for PE, foreign body, and focal infiltrates that would be consistent with a bacterial infection. Currently she recieved ceftriaxone 09/17/2025 through 09/19/25. Is on Azithromycin since 09/17/2025, day 4. Metronidazole started 09/17/25, day 4. Vancomycin started 09/20/2025. Meropenem started 09/20/2025. I will send extended respiratory pathogen panel, urine for Legionella, urine for pneumococcal antigen, serum mycoplasma IgM. Continue noninvasive ventilation with the AVAPS mode and settings as above p.r.n. during the day. Patient should wear this tonight. I will check an echocardiogram to assess LV function, RV function, valvular function and PASP. Later in the day patient had an echocardiogram: LVEF 65-70%. Grade 1 diastolic dysfunction. Mild aortic valve sclerosis. Trace aortic valve regurgitation. Moderate tricuspid valve regurgitation with a PASP of 43. Normal right ventricular size and function. Normal left atrial size. Normal right atrial size. Later in the day CT angiogram of the chest was negative for PE, severe panlobular emphysema, right lower lobe endobronchial abnormality consistent with foreign body, polyp or mucus. No right lower lobe collapse. I reviewed with Radiology. 09/21/2025: Patient wore noninvasive ventilation throughout the day yesterday, came off for 2 hours later in the day and wore the noninvasive ventilator overnight. She took a noninvasive ventilation off for the last hour and a half and said that she is breathing better than yesterday. Her cough is worse. Her phlegm is clear. When I enter the room she was on 2 L nasal cannula saturations 97%. I decreased her to 1 L nasal cannula and her saturations were 93%. White blood cell count is 13.0, creatinine 0.59. Yesterday she was -701 mL. Since admission she is positive 2.8 L. Her weight today is 54.3. Patient had a chest x-ray today with no focal infiltrates or infusions. Plan for bronchoscopy later today. Plan: Patient with right lower lobe endobronchial abnormality consistent with foreign body, polyp or mucus. Will proceed with bronchoscopy later today. Her will continue to treat for COPD exacerbation with Solu-Medrol 60 q.6, DuoNebs Q 4, Daliresp 500. BiPAP p.r.n.. Goal saturation 90-94%, wean as tolerated. Patient received ceftriaxone from 09/16/2025 through 09/19. Patient received azithromycin 09/16 through 09/20. Patient received metronidazole 09/17 through 09/20. Patient received vancomycin on 09/20/2025. Patient is on meropenem , day 2. procalcitonin is low at 0. No focal infiltrates on her CT scan. Low suspicion for bacterial infection. Respiratory pathogen panel pending, urine Legionella, urine pneumococcal and serum mycoplasma IgM pending. Continue meropenem today. Discussed with Dr. Logan, will follow with you. Subjective Date/time seen: 09/21/25 10:21 Interval history: 09/20/2025: this is a new pulmonary consult for respiratory distress. 70-year-old with a history of COPD and anxiety. When I enter the room the patient was in moderate respiratory distress in a tripod position with expiratory wheezes. Stat ABG was obtained and prior to blood gas results, the atient was placed on noninvasive ventilation with the AVAPS mode for her acute respiratory distress. Settings were adjusted to comfort resulting in: rate of 20, tidal volume 525, EPAP 5, minimal inspiratory pressure 6, maximal inspiratory pressure 25, inspiratory time 1.0, rise of 3 and 32% FiO2. Patient improved with this treatment. Limited history was obtained. 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 She quit smoking 16 years ago. tells me patient was at her baseline with no respiratory issues and no change in patient's shortness of breath, phlegm volume or color. Patient's and patient tells me on 09/15/2025 she choked while eating and talking. Prior to this event she had no change in her chronic respiratory status. No change in her shortness of breath, cough, phlegm production prior to this event. she presented to the emergency room on 09/16/2025 at 11:00 p.m.. Blood pressure 145/93, respirations 23, heart rate 101. White blood cell count 13.1 was 0% eosinophils. COVID, influenza, RSV RT PCR assay negative.Patient had increased work of breathing with diminished breath sounds and prolonged expiratory phase the with a blood gas on 80% of 7.33/ 43/128. Patient was treated with BiPAP, Solu-Medrol, ceftriaxone, azithromycin, metronidazole and bronchodilators and admitted to the floor. 09/17/2025: Patient was off the BiPAP on 5 L nasal cannula her breathing had improved. Her cough had Improved. 09/18/2025 patient was requiring 2 L nasal cannula, still had shortness of breath, had some panic attacks earlier today and takes Xanax usually. She had dyspnea on exertion. 09/19/2025: Patient still feels short of breath. Remained on 2 L. Cough was present. No wheezing. 09/20/2025: Patient had worsening wheezing and shortness of breath. I treated her as above. BNP Has increased from 171 on 09/16/2025 to 611 today. Procalcitonin 0.0. CRP is unchanged from 09/16/2025 at less than 0.5. Later in the day patient had an echocardiogram: LVEF 65-70%. Grade 1 diastolic dysfunction. Mild aortic valve sclerosis. Trace aortic valve regurgitation. Moderate tricuspid valve regurgitation with a PASP of 43. Normal right ventricular size and function. Normal left atrial size. Normal right atrial size. Later in the day CT angiogram of the chest was negative for PE, severe panlobular emphysema, right lower lobe endobronchial abnormality consistent with foreign body, polyp or mucus. No right lower lobe collapse. I reviewed with Radiology. 09/21/2025: Patient wore noninvasive ventilation throughout the day yesterday, came off for 2 hours later in the day and wore the noninvasive ventilator overnight. She took a noninvasive ventilation off for the last hour and a half and said that she is breathing better than yesterday. Her cough is worse. Her phlegm is clear. When I enter the room she was on 2 L nasal cannula saturations 97%. I decreased her to 1 L nasal cannula and her saturations were 93%. White blood cell count is 13.0, creatinine 0.59. Yesterday she was -701 mL. Since admission she is positive 2.8 L. Her weight today is 54.3. Patient had a chest x-ray today with no focal infiltrates or infusions. Plan for bronchoscopy later today. Data: 09/20/25: EXAMINATION: CTA chest PE protocol INDICATION: Rule out PE COMPARISON: September 17, 2025 FINDINGS: No pulmonary emboli or thoracic aortic aneurysm/dissection. Heart size normal. Trace pericardial effusion. Coronary artery calcifications noted. Moderate to severe diffuse centrilobular emphysematous changes of the lungs. 10 mm mucus appearing focus or sludge ball is present in the right lower lobe bronchus, image 60 series 4. Small amount of mucus also present in the tracheal air column. Airways otherwise are patent. No consolidation effusion or pneumothorax. No focal acute process seen in the visualized portions of the upper abdomen. Cholecystectomy clips. Degenerative changes throughout the bones. IMPRESSION: 1. No pulmonary emboli or thoracic aortic aneurysm/dissection. 2. Severe emphysematous changes in the lungs. 10 mm nonobstructing soft tissue focus in the right lower lobe bronchus probably representing mucoid sludge ball. Polypoid lesion however is not excluded. 09/20/25: Echo Summary 1. Definity contrast administered improved wall motion interpretation. 2. Left ventricular chamber dimension is normal. 3. Left ventricular systolic function is normal, estimated at 65-70. 4. The left ventricular diastolic function is grade I diastolic dysfunction. 5. E/e' 12 is mildly elevated. 6. There is mild aortic valve sclerosis. 7. There is trace aortic valve regurgitation. 8. There is moderate tricuspid valve regurgitation. 9. Mild pulmonary hypertension, estimated pulmonary arterial systolic pressure is 43 mmHg. Right Ventricle Right ventricular chamber dimension is normal. Right ventricular systolic function is normal. Left Atria Left atrial chamber dimension is normal. Right Atria Right atrial chamber dimension is normal. 09/17/25: EXAMINATION:CT diagnostic chest wo con INDICATION: Shortness of breath COMPARISON: December 23, 2013 FINDINGS: Advanced emphysematous changes throughout the lungs noted with no consolidation effusion or pneumothorax. Mild scattered interstitial prominence noted but no evidence of architectural distortion, bronchiectasis, air cysts formation or advanced fibrotic changes. Scattered benign-appearing calcified small granulomas nodules. Heart and great vessels normal size with no bulky lymphadenopathy. Central large airways patent. The bones appear intact. No acute abnormality seen in the visualized portions of the upper chest or extrathoracic soft tissues. IMPRESSION: 1. Advanced emphysematous changes in the lungs. 2. No gross acute intrathoracic process identified. Review of Systems Constitutional: Constitutional: Reports no additional constitutional complaints Eyes: Eyes: Reports no additional eye complaints ENT: Reports system reviewed and no additional complaints, except as documented Cardiovascular: Cardiovascular: Reports no additional cardiovascular complaints Respiratory: Respiratory: Reports no additional respiratory complaints Gastrointestinal: Gastrointestinal: Reports no additional gastrointestinal complaints Musculoskeletal: Musculoskeletal: Reports no additional musculoskeletal complaints Neurologic: Reports system reviewed and no additional complaints, except as documented Psychiatric: Psychiatric: Reports no additional psychiatric complaints Endocrine: Endocrine: Reports no additional endocrine complaints Hematologic/Lymphatic: Hematologic/Lymphatic: Reports no additional hematologic/lymphatic complaints Allergic/Immunologic: Allergic/Immunologic: Reports no additional allergic/immunologic complaints Exam Const: General: cooperative, healthy appearing and in distress Orientation/consciousness: oriented to person, oriented to place and oriented to time Other: patient was in distress and placed on Noninvasive ventilation emergently. HENMT: Head: normal to inspection Ears: hearing grossly normal bilaterally Eyes: General: appearance normal, both eyes and all related structures Neck: Neck: normal visual inspection Chest: Chest palpation & inspection: normal inspection of the chest Resp: Effort & Inspection: normal respiratory effort and able to speak in complete sentences Auscultation: no crackles, no rales, no rhonchi, wheezes and lung sounds not diminished Other: Wheezes right lung With no wheeze on the left Cardio: Jugular venous distension: no JVD GI: Inspection: normal to inspection Skin: General skin exam: normal color Neuro: General: oriented to person, oriented to place and oriented to time Extrem: General: normal to inspection and no edema Psych: Appearance: grossly normal Objective Data Vital Signs Vital Signs: Vital Signs - 24 hr 09/20/25 11:03 09/20/25 11:13 09/20/25 11:23 Temperature Pulse Rate 109 H 109 H 106 H Respiratory Rate 44 H 33 H 32 H Blood Pressure Pulse Oximetry 99 Oxygen Delivery Oxygen Flow Rate Fraction of Inspired Oxygen 09/20/25 12:00 09/20/25 12:00 09/20/25 14:00 Temperature 36.3 C L Pulse Rate 100 87 Respiratory Rate 24 H Blood Pressure 141/103 H Pulse Oximetry 99 Oxygen Delivery BiPAP Oxygen Flow Rate Fraction of Inspired Oxygen 32 09/20/25 14:55 09/20/25 16:00 09/20/25 16:00 Temperature 36.6 C Pulse Rate 105 H 90 Respiratory Rate 28 H 23 H Blood Pressure 154/84 H Pulse Oximetry 100 99 Oxygen Delivery BiPAP Oxygen Flow Rate Fraction of Inspired Oxygen 32 09/20/25 16:00 09/20/25 16:10 09/20/25 16:13 Temperature Pulse Rate 68 87 95 Respiratory Rate 26 H 28 H Blood Pressure Pulse Oximetry 100 Oxygen Delivery Oxygen Flow Rate Fraction of Inspired Oxygen 09/20/25 16:19 09/20/25 18:00 09/20/25 20:00 Temperature Pulse Rate 91 88 Respiratory Rate 24 H Blood Pressure Pulse Oximetry 94 Oxygen Delivery BiPAP Oxygen Flow Rate Fraction of Inspired Oxygen 32 09/20/25 20:00 09/20/25 20:12 09/20/25 21:22 Temperature 36.8 C Pulse Rate 110 H 114 H 112 H Respiratory Rate 24 H 22 H Blood Pressure 142/76 H Pulse Oximetry 94 96 Oxygen Delivery BiPAP Oxygen Flow Rate Fraction of Inspired Oxygen 32 09/20/25 21:22 09/20/25 21:30 09/20/25 22:00 Temperature Pulse Rate 112 H 110 H 95 Respiratory Rate 22 H 20 Blood Pressure Pulse Oximetry Oxygen Delivery Oxygen Flow Rate Fraction of Inspired Oxygen 09/20/25 22:00 09/20/25 23:45 09/20/25 23:45 Temperature Pulse Rate Respiratory Rate 20 Blood Pressure Pulse Oximetry 95 95 Oxygen Delivery Nasal Cannula BiPAP BiPAP Oxygen Flow Rate 3 Fraction of Inspired Oxygen 32 09/21/25 00:00 09/21/25 00:00 09/21/25 00:49 Temperature 36.8 C Pulse Rate 76 84 Respiratory Rate 20 Blood Pressure 177/74 H Pulse Oximetry 99 100 Oxygen Delivery BiPAP Oxygen Flow Rate Fraction of Inspired Oxygen 32 09/21/25 00:55 09/21/25 01:03 09/21/25 02:00 Temperature Pulse Rate 97 98 82 Respiratory Rate 20 22 H Blood Pressure Pulse Oximetry Oxygen Delivery Oxygen Flow Rate Fraction of Inspired Oxygen 09/21/25 04:00 09/21/25 04:00 09/21/25 04:25 Temperature 36.8 C Pulse Rate 76 93 Respiratory Rate 20 Blood Pressure 177/69 H Pulse Oximetry 99 100 Oxygen Delivery BiPAP Oxygen Flow Rate Fraction of Inspired Oxygen 32 09/21/25 04:32 09/21/25 04:32 09/21/25 04:38 Temperature Pulse Rate 66 66 68 Respiratory Rate 22 H 22 H 22 H Blood Pressure Pulse Oximetry 99 Oxygen Delivery BiPAP Oxygen Flow Rate Fraction of Inspired Oxygen 09/21/25 06:00 09/21/25 07:35 09/21/25 07:35 Temperature Pulse Rate 78 98 Respiratory Rate 20 Blood Pressure Pulse Oximetry 98 Oxygen Delivery High Flow Nasal Cannula Oxygen Flow Rate 2 Fraction of Inspired Oxygen 09/21/25 07:43 09/21/25 07:57 09/21/25 09:44 Temperature 36.3 C L Pulse Rate 95 93 81 Respiratory Rate 20 20 Blood Pressure 152/97 H Pulse Oximetry 100 Oxygen Delivery Oxygen Flow Rate Fraction of Inspired Oxygen Intake/Output Intake/Output: Intake & Output 09/18/25 09/19/25 09/20/25 09/21/25 23:59 23:59 23:59 23:59 Intake Total 640 980 850 100 Output Total 1000 1551 200 Balance 640 -20 -701 -100 Meds/Results Medications: Active Medications Generic Name Dose Route Start Last Admin Trade Name Freq PRN Reason Stop Dose Admin Acetaminophen 650 mg 09/17/25 15:36 09/19/25 17:18 Acetaminophen 325 Mg Tablet PO 650 mg Q6H PRN Administration Mild Pain (1-3) or Fever Albuterol/Ipratropium 3 ml 09/19/25 20:00 09/21/25 07:31 Ipratropium 0.5 Mg/Albuterol Sulfate 2.5 Mg (Base) Ampul.Neb 3 Ml INHALATION 3 ml Q4HRT VINCENT Administration Alprazolam 0.25 mg 09/20/25 14:00 09/21/25 06:22 Alprazolam (*Crx) 0.25 Mg Tablet BY MOUTH 0.25 mg Q4H PRN Administration Anxiety Bupropion HCl 150 mg 09/21/25 09:00 09/21/25 09:38 Bupropion Hcl Xl (24 Hr) 150 Mg Tabcr PO Not Given QAM VINCENT Enoxaparin Sodium 40 mg 09/21/25 09:00 09/21/25 09:38 Enoxaparin 40 Mg/0.4 Ml Syringe SUB-Q Not Given DAILY VINCENT Meropenem 1 gm/ Sodium 100 mls @ 200 mls/hr 09/20/25 09:00 09/21/25 09:43 Chloride IVPB 200 mls/hr Q8H VINCENT Administration Ibuprofen 600 mg 09/17/25 20:24 09/20/25 18:24 Ibuprofen 600 Mg Tablet PO 600 mg Q6H PRN Administration Mild Pain (1-3) or Fever Levalbuterol HCl 1 puff 09/18/25 08:20 Levalbuterol Hfa (*Sp) 15 Gm Inhaler INHALATION On Hold: 09/18/25 17:13 PRN PRN Comment: PATIENT ON ALBUTEROL Shortness Of Breath NEBS Levothyroxine Sodium 75 mcg 09/18/25 06:30 09/21/25 06:13 Levothyroxine Sodium 75 Mcg Tablet PO 75 mcg DAILY@0630 VINCENT Administration Methylprednisolone Sodium Succinate 60 mg 09/20/25 00:00 09/21/25 06:12 Methylprednisolone Sod Succ 125 Mg Vial IV PUSH 60 mg Q6HR VINCENT Administration Metoprolol Succinate 50 mg 09/18/25 09:00 09/21/25 09:44 Metoprolol Succinate Ext Rel 50 Mg Tabcr PO 50 mg QAM VINCENT Administration Miscellaneous Information 1 each 09/18/25 00:01 Darifenacin Is Nonformulary. Can She Use Home Supply? Or We Have Ditropan Xl 5mg Daily XX 10/18/25 00:00 CLARIFY VINCENT Miscellaneous Information 1 each 09/18/25 00:01 May Use Home Systane Eye Drops Send To Pharmacy For Verification XX 10/18/25 00:00 CLARIFY [facility] Non-Formulary Medication 15 mg 09/18/25 09:00 Darifenacin PO 10/18/25 08:59 DAILY [facility] Non-Formulary Medication 1 drop 09/18/25 17:00 Systane EACH EYE 10/18/25 16:59 TID [facility] Pantoprazole Sodium 20 mg 09/18/25 09:00 09/21/25 09:38 Pantoprazole Sod Sesquihydrate 20 Mg Tab PO Not Given QAM [facility] Prednisolone Acetate 1 drop 09/18/25 09:00 09/21/25 09:38 Prednisolone Acetate 1% Ophth 5 Ml LEFT EYE Not Given TID [facility] Roflumilast 500 mcg 09/18/25 09:00 09/21/25 09:38 Roflumilast 500 Mcg Tablet PO Not Given DAILY [facility] Saccharomyces Boulardii 250 mg 09/19/25 13:00 09/21/25 09:39 Saccharomyces Boulardii 250 Mg Capsule PO Not Given TID [facility] Radiology Results: ITS Impressions Chest CT 09/17/25 08:37 IMPRESSION: 1. Advanced emphysematous changes in the lungs. 2. No gross acute intrathoracic process identified. NOTE: Preliminary radiology report provided by [facility] radiologist. Chest CTA 09/20/25 14:57 IMPRESSION: 1. No pulmonary emboli or thoracic aortic aneurysm/dissection. 2. Severe emphysematous changes in the lungs. 10 mm nonobstructing soft tissue focus in the right lower lobe bronchus probably representing mucoid sludge ball. Polypoid lesion however is not excluded. Chest X-Ray 09/21/25 08:52 Impression: No acute cardiopulmonary abnormality. Labs Labs: Laboratory Results - last 24 hr 09/20/25 09/20/25 09/21/25 09:26 10:53 06:22 WBC 11.3 H 13.0 H RBC 4.24 4.13 L Hgb 13.5 13.0 Hct 41.5 40.4 MCV 97.9 97.8 MCH 31.8 31.5 MCHC 32.5 32.2 RDW 12.9 12.9 Plt Count 302 302 MPV 8.8 8.8 Immature Gran % (Auto) 2.3 H 1.2 H Neut % (Auto) 90.3 H 89.0 H Lymph % (Auto) 4.5 L 6.1 L [place] % (Auto) 2.7 3.4 Eos % (Auto) 0.0 0.0 Baso % (Auto) 0.2 0.3 Lymph # (Auto) 0.51 L 0.79 L [place] # (Auto) 0.3 0.4 Eos # (Auto) 0.0 0.0 Baso # (Auto) 0.0 0.0 Abs Immat Gran (auto) 0.26 H 0.16 H Absolute Neuts (auto) 10.2 H 11.6 H Absolute Nucleated RBC 0.000 0.020 H Nucleated RBC % 0.0 0.2 PT 15.2 H INR 1.2 APTT 22.9 Puncture Site Left radial ABG pH 7.415 ABG pCO2 38.9 ABG pO2 89.7 ABG PO2/FiO2 Ratio 2.80 ABG HCO3 24.4 ABG O2 Saturation 97.0 ABG O2 Content 19.2 ABG Base Excess 0.0 A-a Gradient 92.9 Oxyhemoglobin 95.7 Total Hemoglobin 14.2 O2 Delivery Device Nasal cannula O2 Liters/Min 3.0 FiO2 32 Sodium 140 138 Potassium 3.4 3.5 Chloride 106 106 Carbon Dioxide 25 28 Anion Gap 9 4 BUN 22 H 33 H D Creatinine 0.54 L 0.59 L Estim Creat Clear Calc 66 61 Estimated GFR > 60 > 60 Glucose 116 H 124 H Calcium 8.7 8.9 Magnesium 2.3 2.6 H Total Bilirubin 0.6 0.7 AST 36 35 ALT 37 H 34 Alkaline Phosphatase 73 60 Total Protein 7.3 6.6 Albumin 4.3 3.9
--- NOTE | 2025-09-21 13:25 | PC.NURSE ---
pt taken down to gi lab by gi nurse
[2025-09-21] MEDS: LACTATED RINGERS 1,000 ML 150 ML IV CONT (13:46)
--- NOTE | 2025-09-21 13:51 | WPDANESEPPF ---
Anes - Initial Pre Proc Eval Procedure: Operation Date: 09/21/25 14:00 Proposed Procedures p Flexible Bronchoscopy with possible foreign body removal - Jorge Alberto Shafer MD Date/Time: 09/21/25 13:51 Surgeon: Juliana Barrett MD Pre Op Diagnosis: Respiratory failure Patient Data Age: 70 Gender: F Height: 1.6 m Weight: 54.3 kg Last Vital Signs Temp 36.6 C 09/21/25 13:44 Pulse 102 H 09/21/25 13:44 Resp 26 H 09/21/25 13:44 BP 150/80 H 09/21/25 13:44 Pulse Ox 94 09/21/25 13:44 O2 Del Method Nasal Cannula 09/21/25 13:44 O2 Flow Rate 1 09/21/25 13:44 FiO2 32 09/21/25 12:00 Allergies Allergy/AdvReac Type Severity Reaction Status Date / Time Penicillins Allergy Unknown Dermatitis Verified 09/21/25 13:41 Home Medications ?Medication ?Instructions ?Recorded ?Confirmed ?Type omeprazole 20 mg tablet,delayed 20 mg PO DAILY 07/15/20 09/17/25 History release fluticasone 500 mcg-salmeterol 50 1 inh inhalation Q12H #180 ea 05/22/24 09/17/25 Rx mcg/dose blistr powdr for inhalation (Advair Diskus) levothyroxine 75 mcg tablet 75 mcg PO DAILY #90 tabs 07/27/25 09/17/25 Rx (Synthroid) azithromycin 250 mg tablet See Rx Instructions PO .COMPLEX #6 09/16/25 09/17/25 Rx (Zithromax Z-Joaquín) tabs alprazolam 0.25 mg tablet 0.25 mg PO TID 09/17/25 09/17/25 History bupropion HCl 150 mg 24 hr tablet, 150 mg PO DAILY 09/17/25 09/17/25 History extended release darifenacin 15 mg tablet,extended 15 mg PO DAILY 09/17/25 09/17/25 History release 24 hr levalbuterol tartrate 45 1 puff inhalation PRN PRN 09/17/25 09/17/25 History mcg/actuation aerosol inhaler shortness of breath metoprolol succinate 50 mg 50 mg PO DAILY 09/17/25 09/17/25 History tablet,extended release 24 hr prednisolone acetate 1 % eye 1 drp LEFT EYE TID 09/17/25 09/17/25 History drops,suspension prednisone 20 mg tablet 20 mg PO DAILY 09/17/25 09/17/25 History roflumilast 500 mcg tablet 500 mcg PO DAILY 09/17/25 09/17/25 History tiotropium bromide 18 mcg capsule 1 cap inhalation PRN PRN SOB 09/17/25 09/17/25 History with inhalation device (Spiriva with HandiHaler) Laboratory Tests 09/20/25 09/21/25 09/21/25 19:38 06:22 06:22 WBC 13.0 H K/mm3 (4.5-10.0) RBC 4.13 L M/mm3 (4.2-5.4) Hgb 13.0 g/dL (12.0-15.0) Hct 40.4 % (37.0-47.0) MCV 97.8 fl (80-100) MCH 31.5 pg (26-34) MCHC 32.2 g/dl (32-36) RDW 12.9 % (11.5-14.5) Plt Count 302 k/mm3 (150-375) MPV 8.8 fl (7.4-10.4) Immature Gran % (Auto) 1.2 H % (0-0.5) Neut % (Auto) 89.0 H % (45.5-73.1) Lymph % (Auto) 6.1 L % (18.3-44.2) Person % (Auto) 3.4 % (2.6-8.5) Eos % (Auto) 0.0 % (0-4.4) Baso % (Auto) 0.3 % (0.2-1.2) Lymph # (Auto) 0.79 L K/mm3 (0.9-3.2) Person # (Auto) 0.4 K/mm3 (0.1-0.6) Eos # (Auto) 0.0 K/mm3 (0-0.3) Baso # (Auto) 0.0 K/mm3 (0.0-0.1) Abs Immat Gran (auto) 0.16 H K/mm3 (0.00-0.031) Absolute Neuts (auto) 11.6 H K/mm3 (1.3-6.7) Absolute Nucleated RBC 0.020 H K/mm3 (0.0-0.012) Nucleated RBC % 0.2 % (0.0-0.2) PT 15.2 H Seconds (11.1-14.7) INR 1.2 APTT 22.9 Seconds (22.3-36.8) Sodium 138 mmol/L (137-145) Potassium 3.5 mmol/L (3.4-5.0) Chloride 106 mmol/L (98-107) Carbon Dioxide 28 mmol/L (22-30) Anion Gap 4 mmol/L (4-12) BUN 33 H D mg/dL (7-17) Creatinine 0.59 L mg/dL (0.7-1.0) Estim Creat Clear Calc 61 ml/min Estimated GFR > 60 (59 - ) Glucose 124 H mg/dL (65-110) Calcium 8.9 mg/dL (8.4-10.2) Magnesium 2.6 H mg/dL (1.6-2.3) Total Bilirubin 0.7 mg/dL (0.2-1.3) AST 35 U/L (14-36) ALT 34 U/L (6-35) Alkaline Phosphatase 60 U/L (38-126) Total Protein 6.6 g/dL (6.3-8.2) Albumin 3.9 g/dL (3.5-5.1) [id number]-[id number] Pending Pending Alpha-1-AT Phenotype Pending Chlamy pneumoniae PCR Pending Adenovirus (PCR) Pending B. pertussis DNA (PCR) Pending B.parapertussis DNA PCR Pending Coronavirus OC43 (PCR) Pending Coronavirus HKU1 (PCR) Pending Coronavirus 229E (PCR) Pending Coronavirus NL63 (PCR) Pending Human Metapneumovir PCR Pending Influenza A (H1) PCR Pending Influ A (H1/09) PCR Pending Influenza A (H3) PCR Pending Influenza Type A (PCR) Pending Influenza Type B (PCR) Pending M.pneumoniae IgM Titer Pending M. pneumoniae (PCR) Pending Parainfluenza 1 (PCR) Pending Parainfluenza 2 (PCR) Pending Parainfluenza 3 (PCR) Pending Parainfluenza 4 (PCR) Pending RSV (PCR) Pending Entero/Rhino (PCR) Pending SARS-CoV-2 (PCR) Pending Patient hx anesthesia problems: none Family hx anesthesia problems: none Results Review: All pre-operative results and documents have been reviewed as part of the pre-operative evaluation. [facility] Past Medical History Medical History COPD exacerbation Acute bronchitis Insomnia BMI 26.0-26.9,adult Hypertriglyceridemia Bilateral hip pain Bilateral knee pain Right knee pain COVID-19 (06/18/23) 2nd episode test positive 06/19/2023 Acute non-recurrent maxillary sinusitis Overactive bladder Osteopenia after menopause DEXA scan -1.9 of the lumbar spine and -1.2 left hip 07/23/2022. T-score -1.9 at the spine and -2.1 of the left hip on 08/02/2023. COVID-19 (04/11/22) fully vaccinated and tested positive at home at onset of symptoms 04/11/2022. Patient not a candidate for Paxlovid because of moderate to severe interactions to 5 of her current medicines. Obesity (BMI 30.0-34.9) Breast cancer screening normal mammogram 12/11/2021 with recheck in 1 year. normal mammogram 02/11/2023. Normal mammogram 05/23/2024. Normal on 06/18/2025. BMI 29.0-29.9,adult Essential (primary) hypertension BMI 30.0-30.9,adult Encounter for wellness examination in adult UTI (urinary tract infection) Colon cancer screening Intermittent palpitations Chronic depression Surgical History Surgical History Hx of detached retina repair December 2024 Family History Family History Father Hypertension Mother Family history of pancreatic disease, Onset Age: 82 Social History Social History Smoking status: Former smoker Tobacco type: cigarettes Second hand tobacco smoke exposure: No Alcohol intake: never Substance use: never Substance use type: does not use Lack of Transportation: No Lack of Food: Never True Current Housing: I Have Housing Concerned About Future Housing: No Difficulty Paying Gas/Electric Bills: No Difficulty Paying for Meds: No Currently Unemployed: No Education: Bachelor's Degree Difficulty w/ Childcare or Family Care: No Spiritual care concerns: No Anes - Eval Final PreProcedure Day of Procedure 09/21/25 13:51 Patient weight: normal Heart: tachycardia Lungs: wheezes Airway: Mallampati scale class III Neurological: alert and oriented Last oral intake: >/= 8 hours ASA classification: IV Emergent: no Anesthetic plan: proceed Anesthesia type and monitoring: general ETT and standard monitoring Results Review: All pre-operative results and documents have been reviewed as part of the pre-operative evaluation. Informed Consent: The patient's anesthetic plan and its attendant risks and benefits were discussed with the patient/family/POA. Questions were solicited and answers provided to the satisfaction of the patient/family/POA.
[2025-09-21] MEDS: LIDOCAINE 2% LOCAL INJ 20 ML VIAL 4 ML INFILTRATE (14:12)
[2025-09-21] MEDS: SODIUM CHLORIDE 0.9% IV 500 ML BAG IRRIGATION (14:25)
--- NOTE | 2025-09-21 14:52 | P.PNIM_ITS ---
Assessment and Plan Assessment and Plan (1) Acute respiratory failure: Code(s): J96.00 - Acute respiratory failure, unspecified whether with hypoxia or hypercapnia Status: Acute (2) Aspiration into lower respiratory tract: Code(s): T17.800A - Unspecified foreign body in other parts of respiratory tract causing asphyxiation, initial encounter; W44.9XXA - Unspecified foreign body entering into or through a natural orifice, initial encounter Status: Acute (3) COPD (chronic obstructive pulmonary disease): Code(s): J44.9 - Chronic obstructive pulmonary disease, unspecified Status: Acute (4) Pneumonitis: Code(s): J98.4 - Other disorders of lung Status: Acute Plan 70-year-old female with PMH COPD, anxiety on low-dose Xanax p.r.n. presents [facility] ER on 09/16/2025 shortness of breath. The patient lives with her and is in generally good health, her COPD is controlled. On 09/15 the patient was eating and choked on corn. She developed extreme shortness of breath, wheezing, cough. She had an anxiety attack. It improved somewhat and the patient went to sleep, she woke up and her breathing was still labored. She did not have cough or as much wheezing. Patient arrived by EMS on CPAP, she had tachypnea, labored breathing. Blood pressure 145/93. ABG on FiO2 80% showing pH 7.32, pCO2 43, PO2 127, troponin 0.012, procalcitonin 0, urinalysis unremarkable, quad viral screen unremarkable. WBC [address]. CT chest without contrast shows pattern of interstitial lung disease, no consolidation, emphysematous changes, small pericardial effusion. Patient was given DuoNebs, Solu-Medrol, 30 cc/kilogram normal saline bolus, ceftriaxone, azithromycin. Metronidazole. Serial troponin remained negative Acute respiratory distress needing BiPAP support now tapered off. Still requiring oxygen supplementation and worsened. bipap prn will be added. Chest x-ray and chest reviewed recent choking episode. cxr 09/19 with developing pneumonitis. switched to iv steroid. switch antibiotics to add vancomycin and meropenem. will stop cef and metron. azithromycin to continue for atypical coverage. COPD exacerbation CT chest reviewed. With steroid and DuoNeb. Currently no wheezes heard. With switched to oral steroid. recheck cxr with developing pneumonia. cta chest repeat negative for PE however had right lower bronchus possible mass. Plan for bronchoscopy and underwent bronchoscopy 09/21/2025 with removal of endobronchial yellow mass. Continue duoneb scheduled. iv steroid as well. pulmonary consultation. Appreciate their recommendations and evaluation mild hypercapnia noted on abg: will repeat. bipap prn for respiratory failure. On AVAPS more so currently Aspiration pneumonitis CT chest with no findings and pneumonia. Continue on ceftriaxone azithromycin and Flagyl as ordered. Switched to meropenem and azithromycin Anxiety disorder/panic attacks on Xanax p.r.n. on bupropion Hypothyroidism Hypertension GERD Code status full code DVT prophylaxis SCDs switch to lovenox Subjective Date/time seen: 09/21/25 14:52 Interval history: See remain on AVAPS overnight. Still feels anxious and short of breath. Patient is planned for bronchoscopy this afternoon. CT findings were reviewed with the patient and the family. Discussed with Pulmonary. Review of Systems Review of Systems: All systems reviewed & are unremarkable except as noted in HPI and below (Subjective) Exam Narrative: CONST: Alert and oriented x3 not in acute distress. HENMT: Head is normocephalic and atraumatic. EYES: No scleral icterus. No conjunctival injection or pallor. PERRL. RESP: Diminished breath sounds bilaterally with wheezes, no Crepts. No respiratory distress mildy tachyneic CARDIO: Regular rate Regular rhythm. 2+ DP and radial pulses bilaterally. GI: Nondistended. No tenderness to palpation. Soft. : No CVA tenderness to palpation. SKIN: No rashes or lesions noted on exposed skin. NEURO: Oriented x3. Moves all extremities. EXTREM/MSK/BACK: No pedal edema. PSYCH: anxious Objective Data Vital Signs Vital Signs: Vital Signs - 24 hr 09/20/25 14:55 09/20/25 16:00 09/20/25 16:00 Temperature 97.9 F Pulse Rate 105 H 90 Respiratory Rate 28 H 23 H Blood Pressure 154/84 H Pulse Oximetry 100 99 Oxygen Delivery BiPAP Oxygen Flow Rate Fraction of Inspired Oxygen 32 09/20/25 16:00 09/20/25 16:10 09/20/25 16:13 Temperature Pulse Rate 68 87 95 Respiratory Rate 26 H 28 H Blood Pressure Pulse Oximetry 100 Oxygen Delivery Oxygen Flow Rate Fraction of Inspired Oxygen 09/20/25 16:19 09/20/25 18:00 09/20/25 20:00 Temperature Pulse Rate 91 88 Respiratory Rate 24 H Blood Pressure Pulse Oximetry 94 Oxygen Delivery BiPAP Oxygen Flow Rate Fraction of Inspired Oxygen 32 09/20/25 20:00 09/20/25 20:12 09/20/25 21:22 Temperature 98.3 F Pulse Rate 110 H 114 H 112 H Respiratory Rate 24 H 22 H Blood Pressure 142/76 H Pulse Oximetry 94 96 Oxygen Delivery BiPAP Oxygen Flow Rate Fraction of Inspired Oxygen 32 09/20/25 21:22 09/20/25 21:30 09/20/25 22:00 Temperature Pulse Rate 112 H 110 H 95 Respiratory Rate 22 H 20 Blood Pressure Pulse Oximetry Oxygen Delivery Oxygen Flow Rate Fraction of Inspired Oxygen 09/20/25 22:00 09/20/25 23:45 09/20/25 23:45 Temperature Pulse Rate Respiratory Rate 20 Blood Pressure Pulse Oximetry 95 95 Oxygen Delivery Nasal Cannula BiPAP BiPAP Oxygen Flow Rate 3 Fraction of Inspired Oxygen 32 09/21/25 00:00 09/21/25 00:00 09/21/25 00:49 Temperature 98.2 F Pulse Rate 76 84 Respiratory Rate 20 Blood Pressure 177/74 H Pulse Oximetry 99 100 Oxygen Delivery BiPAP Oxygen Flow Rate Fraction of Inspired Oxygen 32 09/21/25 00:55 09/21/25 01:03 09/21/25 02:00 Temperature Pulse Rate 97 98 82 Respiratory Rate 20 22 H Blood Pressure Pulse Oximetry Oxygen Delivery Oxygen Flow Rate Fraction of Inspired Oxygen 09/21/25 04:00 09/21/25 04:00 09/21/25 04:25 Temperature 98.3 F Pulse Rate 76 93 Respiratory Rate 20 Blood Pressure 177/69 H Pulse Oximetry 99 100 Oxygen Delivery BiPAP Oxygen Flow Rate Fraction of Inspired Oxygen 32 09/21/25 04:32 09/21/25 04:32 09/21/25 04:38 Temperature Pulse Rate 66 66 68 Respiratory Rate 22 H 22 H 22 H Blood Pressure Pulse Oximetry 99 Oxygen Delivery BiPAP Oxygen Flow Rate Fraction of Inspired Oxygen 09/21/25 06:00 09/21/25 07:35 09/21/25 07:35 Temperature Pulse Rate 78 98 Respiratory Rate 20 Blood Pressure Pulse Oximetry 98 Oxygen Delivery High Flow Nasal Cannula Oxygen Flow Rate 2 Fraction of Inspired Oxygen 09/21/25 07:43 09/21/25 07:57 09/21/25 08:00 Temperature 97.4 F L Pulse Rate 95 93 99 Respiratory Rate 20 20 Blood Pressure 152/97 H Pulse Oximetry 100 Oxygen Delivery Oxygen Flow Rate Fraction of Inspired Oxygen 09/21/25 09:44 09/21/25 10:00 09/21/25 11:25 Temperature Pulse Rate 81 103 H 65 Respiratory Rate 20 Blood Pressure Pulse Oximetry 100 Oxygen Delivery BiPAP Oxygen Flow Rate Fraction of Inspired Oxygen 09/21/25 11:25 09/21/25 11:32 09/21/25 11:36 Temperature 96.8 F L Pulse Rate 65 79 79 Respiratory Rate 20 24 H 23 H Blood Pressure 145/82 H Pulse Oximetry 100 Oxygen Delivery Oxygen Flow Rate Fraction of Inspired Oxygen 09/21/25 12:00 09/21/25 12:00 09/21/25 13:37 Temperature Pulse Rate 70 Respiratory Rate Blood Pressure Pulse Oximetry 99 96 Oxygen Delivery BiPAP Nasal Cannula Oxygen Flow Rate 3 Fraction of Inspired Oxygen 32 09/21/25 13:44 09/21/25 14:30 09/21/25 14:40 Temperature 98 F Pulse Rate 102 H 102 H 104 H Respiratory Rate 26 H 26 H 24 H Blood Pressure 150/80 H 152/73 H 162/87 H Pulse Oximetry 94 98 99 Oxygen Delivery Nasal Cannula Simple Face Mask Simple Face Mask Oxygen Flow Rate 1 8 6 Fraction of Inspired Oxygen 09/21/25 14:50 Temperature Pulse Rate 112 H Respiratory Rate 30 H Blood Pressure 159/91 H Pulse Oximetry 99 Oxygen Delivery Room Air Oxygen Flow Rate Fraction of Inspired Oxygen Intake/Output Intake/Output: Intake & Output 09/18/25 09/19/25 09/20/25 09/21/25 23:59 23:59 23:59 23:59 Intake Total 640 980 850 200 Output Total 1000 1551 200 Balance 640 -20 -701 0 Meds/Results Medications: Active Medications Generic Name Dose Route Start Last Admin Trade Name Freq PRN Reason Stop Dose Admin Acetaminophen 650 mg 09/17/25 15:36 09/19/25 17:18 Acetaminophen 325 Mg Tablet PO 650 mg Q6H PRN Administration Mild Pain (1-3) or Fever Albuterol/Ipratropium 3 ml 09/19/25 20:00 09/21/25 11:24 Ipratropium 0.5 Mg/Albuterol Sulfate 2.5 Mg (Base) Ampul.Neb 3 Ml INHALATION 3 ml Q4HRT VINCENT Administration Alprazolam 0.25 mg 09/20/25 14:00 09/21/25 10:33 Alprazolam (*Crx) 0.25 Mg Tablet BY MOUTH 0.25 mg Q4H PRN Administration Anxiety Bupropion HCl 150 mg 09/21/25 09:00 09/21/25 09:38 Bupropion Hcl Xl (24 Hr) 150 Mg Tabcr PO Not Given QAM VINCENT Enoxaparin Sodium 40 mg 09/21/25 09:00 09/21/25 09:38 Enoxaparin 40 Mg/0.4 Ml Syringe SUB-Q Not Given DAILY VINCENT Meropenem 1 gm/ Sodium 100 mls @ 200 mls/hr 09/20/25 09:00 09/21/25 10:15 Chloride IVPB Infused Q8H VINCENT Infusion Lactated Ringer's 1,000 mls @ 150 mls/hr 09/21/25 13:45 09/21/25 14:30 Lr - Lactated Ringers Iv IV CONT 150 mls/hr .Q6H40M VINCENT Infusion Ibuprofen 600 mg 09/17/25 20:24 09/20/25 18:24 Ibuprofen 600 Mg Tablet PO 600 mg Q6H PRN Administration Mild Pain (1-3) or Fever Levalbuterol HCl 1 puff 09/18/25 08:20 Levalbuterol Hfa (*Sp) 15 Gm Inhaler INHALATION On Hold: 09/18/25 17:13 PRN PRN Comment: PATIENT ON ALBUTEROL Shortness Of Breath NEBS Levothyroxine Sodium 75 mcg 09/18/25 06:30 09/21/25 06:13 Levothyroxine Sodium 75 Mcg Tablet PO 75 mcg DAILY@0630 VINCENT Administration Methylprednisolone Sodium Succinate 60 mg 09/20/25 00:00 09/21/25 13:16 Methylprednisolone Sod Succ 125 Mg Vial IV PUSH 60 mg Q6HR VINCENT Administration Metoprolol Succinate 50 mg 09/18/25 09:00 09/21/25 09:44 Metoprolol Succinate Ext Rel 50 Mg Tabcr PO 50 mg QAM VINCENT Administration Miscellaneous Information 1 each 09/18/25 00:01 Darifenacin Is Nonformulary. Can She Use Home Supply? Or We Have Ditropan Xl 5mg Daily XX 10/18/25 00:00 CLARIFY VINCENT Miscellaneous Information 1 each 09/18/25 00:01 May Use Home Systane Eye Drops Send To Pharmacy For Verification XX 10/18/25 00:00 CLARIFY VINCENT Non-Formulary Medication 15 mg 09/18/25 09:00 Darifenacin PO 10/18/25 08:59 DAILY VINCENT Non-Formulary Medication 1 drop 09/18/25 17:00 Systane EACH EYE 10/18/25 16:59 TID VINCENT Pantoprazole Sodium 20 mg 09/18/25 09:00 09/21/25 09:38 Pantoprazole Sod Sesquihydrate 20 Mg Tab PO Not Given QAM VINCENT Prednisolone Acetate 1 drop 09/18/25 09:00 09/21/25 09:38 Prednisolone Acetate 1% Ophth 5 Ml LEFT EYE Not Given TID VINCENT Roflumilast 500 mcg 09/18/25 09:00 09/21/25 09:38 Roflumilast 500 Mcg Tablet PO Not Given DAILY VINCENT Saccharomyces Boulardii 250 mg 09/19/25 13:00 09/21/25 09:39 Saccharomyces Boulardii 250 Mg Capsule PO Not Given TID [facility] Radiology Results: ITS Impressions Chest CT 09/17/25 08:37 IMPRESSION: 1. Advanced emphysematous changes in the lungs. 2. No gross acute intrathoracic process identified. NOTE: Preliminary radiology report provided by [facility] radiologist. Chest CTA 09/20/25 14:57 IMPRESSION: 1. No pulmonary emboli or thoracic aortic aneurysm/dissection. 2. Severe emphysematous changes in the lungs. 10 mm nonobstructing soft tissue focus in the right lower lobe bronchus probably representing mucoid sludge ball. Polypoid lesion however is not excluded. Chest X-Ray 09/21/25 14:46 IMPRESSION: 1. Mild discoid atelectasis in the bilateral lower lungs. Labs Labs: Laboratory Results - last 24 hr 09/21/25 06:22 WBC 13.0 H RBC 4.13 L Hgb 13.0 Hct 40.4 MCV 97.8 MCH 31.5 MCHC 32.2 RDW 12.9 Plt Count 302 MPV 8.8 Immature Gran % (Auto) 1.2 H Neut % (Auto) 89.0 H Lymph % (Auto) 6.1 L Cochran % (Auto) 3.4 Eos % (Auto) 0.0 Baso % (Auto) 0.3 Lymph # (Auto) 0.79 L Cochran # (Auto) 0.4 Eos # (Auto) 0.0 Baso # (Auto) 0.0 Abs Immat Gran (auto) 0.16 H Absolute Neuts (auto) 11.6 H Absolute Nucleated RBC 0.020 H Nucleated RBC % 0.2 PT 15.2 H INR 1.2 APTT 22.9 Sodium 138 Potassium 3.5 Chloride 106 Carbon Dioxide 28 Anion Gap 4 BUN 33 H D Creatinine 0.59 L Estim Creat Clear Calc 61 Estimated GFR > 60 Glucose 124 H Calcium 8.9 Magnesium 2.6 H Total Bilirubin 0.7 AST 35 ALT 34 Alkaline Phosphatase 60 Total Protein 6.6 Albumin 3.9
[2025-09-21] MEDS: SACCHAROMYCES BOULARDII 250 MG CAPSULE PO ×2 (16:37→16:45)
[2025-09-21] MEDS: prednisoLONE ACETATE 1% OPHTH 5 ML 1 DROP LEFT EYE ×2 (16:37→17:24)
[2025-09-22] VITALS (20 sets, daily range): BP systolic 148–155; BP diastolic 68–76; PULSE 63–104; RESP 16–24; TEMP 36.6–36.8; O2SAT 94–98
[2025-09-22] MEDS: IPRATROPIUM 0.5 MG/ALBUTEROL SULFATE 2.5 MG (BASE) AMPUL.NEB 3 ML INHALATION ×4 (00:17→11:43)
[2025-09-22] MEDS: ALPRAZolam (*CRX) 0.25 MG TABLET BY MOUTH ×3 (00:36→09:19)
[2025-09-22] MEDS: MEROPENEM 1 GM in SODIUM CHLORIDE 0.9% IV 100 ML 200 ML IVPB ×2 (00:41→09:08)
[2025-09-22 05:06] LABS: Hematocrit 36.2 % (37.0-47.0); Hemoglobin 11.8 g/dL (12.0-15.0); Immature Granulocyte Percent A 1.0 % (0-0.5); Lymphocytes Absolute Auto 0.42 K/mm3 (0.9-3.2); Mean Corpuscular HGB Conc 32.6 g/dl (32-36); Mean Corpuscular Hemoglobin 31.8 pg (26-34); Mean Corpuscular Volume 97.6 fl (80-100); Nucleated Red Blood Cells Absolute Auto 0.000 K/mm3 (0.0-0.012); Nucleated Red Blood Cells Perc 0.0 % (0.0-0.2); Platelet Count Result 263 k/mm3 (150-375); Red Blood Count 3.71 M/mm3 (4.2-5.4); White Blood Count 9.1 K/mm3 (4.5-10.0)
[2025-09-22 05:23] LABS: Alanine Aminotransferase 28 U/L (6-35); Albumin Level 3.2 g/dL (3.5-5.1); Alkaline Phosphatase 52 U/L (38-126); Anion Gap 1 mmol/L (4-12); Aspartate Amino Transferase 26 U/L (14-36); Bilirubin,Total 0.5 mg/dL (0.2-1.3); Blood Urea Nitrogen 35 mg/dL (7-17); Calcium 8.3 mg/dL (8.4-10.2); Carbon Dioxide 34 mmol/L (22-30); Chloride 105 mmol/L (98-107); Estimated CRCL calculation 64 ml/min; Estimated Glomerular Filt Rate > 60; Glucose 121 mg/dL (65-110); Magnesium 2.3 mg/dL (1.6-2.3); Potassium 3.1 mmol/L (3.4-5.0); Sodium 140 mmol/L (137-145); Total Protein 5.6 g/dL (6.3-8.2)
[2025-09-22] MEDS: LEVOTHYROXINE SODIUM 75 MCG TABLET PO (05:33)
[2025-09-22] MEDS: ROFLUMILAST 500 MCG TABLET PO (09:07)
[2025-09-22] MEDS: SACCHAROMYCES BOULARDII 250 MG CAPSULE PO (09:07)
[2025-09-22] MEDS: PANTOPRAZOLE SOD SESQUIHYDRATE 20 MG TAB PO (09:08)
[2025-09-22] MEDS: METOPROLOL SUCCINATE EXT REL 50 MG TABCR PO (09:08)
[2025-09-22] MEDS: prednisoLONE ACETATE 1% OPHTH 5 ML 1 DROP LEFT EYE (09:08)
[2025-09-22] MEDS: buPROPion HCL XL (24 HR) 150 MG TABCR PO (09:08)
--- NOTE | 2025-09-22 09:27 | PM.PNPUL ---
Progress Note: A&P Assessment and Plan (1) COPD exacerbation: Code(s): J44.1 - Chronic obstructive pulmonary disease with (acute) exacerbation Status: Resolved Assessment and Plan: Patient tells me she has a history of COPD for 17 years. She quit smoking 17 years ago. I have no PFTs. CT scan of the chest on 09/17/2025 demonstrates severe apical predominant panlobular emphysema. she tells me she is on no oxygen at home. Patient presents with wheezing, shortness of breath, hypoxic respiratory failure after eating and talking with an aspiration event. 09/20/25: When I enter the room the patient was in moderate respiratory distress in a tripod position with expiratory wheezes. Stat ABG was obtained and prior to blood gas results, the atient was placed on noninvasive ventilation with the AVAPS mode for her acute respiratory distress. Settings were adjusted to comfort resulting in: rate of 20, tidal volume 525, EPAP 5, minimal inspiratory pressure 6, maximal inspiratory pressure 25, inspiratory time 1.0, rise of 3 and 32% FiO2. Patient improved with this treatment. Limited history was obtained. BNP has increased from 171 on 09/16/2025 to 611 today. Procalcitonin 0.0. CRP is unchanged from 09/16/2025 at less than 0.5. Plan: Agree with treatment for COPD exacerbation. Currently the patient is on Solu-Medrol 60 mg IV q.6 hours, day 5 steroids. will continue DuoNebs q.4 hours. Will discontinue her inhalers as DuoNebs and systemic steroids are in place. Continue Daliresp [address] angiogram of the chest to assess for PE, foreign body, and focal infiltrates that would be consistent with a bacterial infection. Currently she recieved ceftriaxone 09/17/2025 through 09/19/25. Is on Azithromycin since 09/17/2025, day 4. Metronidazole started 09/17/25, day 4. Vancomycin started 09/20/2025. Meropenem started 09/20/2025. I will send extended respiratory pathogen panel, urine for Legionella, urine for pneumococcal antigen, serum mycoplasma IgM. Continue noninvasive ventilation with the AVAPS mode and settings as above p.r.n. during the day. Patient should wear this tonight. I will check an echocardiogram to assess LV function, RV function, valvular function and PASP. Later in the day patient had an echocardiogram: LVEF 65-70%. Grade 1 diastolic dysfunction. Mild aortic valve sclerosis. Trace aortic valve regurgitation. Moderate tricuspid valve regurgitation with a PASP of 43. Normal right ventricular size and function. Normal left atrial size. Normal right atrial size. Later in the day CT angiogram of the chest was negative for PE, severe panlobular emphysema, right lower lobe endobronchial abnormality consistent with foreign body, polyp or mucus. No right lower lobe collapse. I reviewed with Radiology. 09/21/2025: Patient wore noninvasive ventilation throughout the day yesterday, came off for 2 hours later in the day and wore the noninvasive ventilator overnight. She took a noninvasive ventilation off for the last hour and a half and said that she is breathing better than yesterday. Her cough is worse. Her phlegm is clear. When I enter the room she was on 2 L nasal cannula saturations 97%. I decreased her to 1 L nasal cannula and her saturations were 93%. White blood cell count is 13.0, creatinine 0.59. Yesterday she was -701 mL. Since admission she is positive 2.8 L. Her weight today is 54.3. Patient had a chest x-ray today with no focal infiltrates or infusions. Plan for bronchoscopy later today. Plan: Patient with right lower lobe endobronchial abnormality consistent with foreign body, polyp or mucus. Will proceed with bronchoscopy later today. Her will continue to treat for COPD exacerbation with Solu-Medrol 60 q.6, DuoNebs Q 4, Daliresp 500. BiPAP p.r.n.. Goal saturation 90-94%, wean as tolerated. Patient received ceftriaxone from 09/16/2025 through 09/19. Patient received azithromycin 09/16 through 09/20. Patient received metronidazole 09/17 through 09/20. Patient received vancomycin on 09/20/2025. Patient is on meropenem , day 2. procalcitonin is low at 0. No focal infiltrates on her CT scan. Low suspicion for bacterial infection. Respiratory pathogen panel pending, urine Legionella, urine pneumococcal and serum mycoplasma IgM pending. Continue meropenem today. Later in the day patient underwent bronchoscopy with extraction of corn kernel from the right lower lobe. 09/22/2025: Patient tells me that she is breathing normal with no rest shortness of breath. Patient has not walked around the room. Her cough has improved but is persistent. She has some clear phlegm with no hemoptysis. when I enter the room she was on 2 L nasal cannula saturations 97%. I placed her on room air and after 26 minutes her saturations were 92%. White blood cell count 9.1, creatinine 0.56. Her weight today is 54.4 kg. patient is up-to-date on her influenza vaccine, COVID booster and has received the RSV vaccine. Patient measures her home pulse oximetry and usually this is 96% at rest on room air. When she is having a bad day it is 91-92%. Plan: From a pulmonary perspective patient is ready to be discharged home on these pulmonary medications Levofloxacin 750 mg p.o. q.day x 2 days Prednisone 40 mg p.o. q.day x5 days. I have instructed the patient to take this only if her symptoms should worsen. Advair 500-51 puff twice a day Spiriva 18 mcg 1 puff q.day Rescue levalbuterol 1-2 puffs q.4 hours p.r.n. shortness of breath Daliresp 500 mcg p.o. q.day No specific pulmonary follow-up is required at this time. She will follow-up with her PCP, Dr. Toro or Mya Pineda. Discussed with Dr. Logan, will sign off, call with questions. Subjective Date/time seen: 09/22/25 09:27 Interval history: 09/20/2025: this is a new pulmonary consult for respiratory distress. 70-year-old with a history of COPD and anxiety. When I enter the room the patient was in moderate respiratory distress in a tripod position with expiratory wheezes. Stat ABG was obtained and prior to blood gas results, the atient was placed on noninvasive ventilation with the AVAPS mode for her acute respiratory distress. Settings were adjusted to comfort resulting in: rate of 20, tidal volume 525, EPAP 5, minimal inspiratory pressure 6, maximal inspiratory pressure 25, inspiratory time 1.0, rise of 3 and 32% FiO2. Patient improved with this treatment. Limited history was obtained. 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 She quit smoking 16 years ago. tells me patient was at her baseline with no respiratory issues and no change in patient's shortness of breath, phlegm volume or color. Patient's and patient tells me on 09/15/2025 she choked while eating and talking. Prior to this event she had no change in her chronic respiratory status. No change in her shortness of breath, cough, phlegm production prior to this event. she presented to the emergency room on 09/16/2025 at 11:00 p.m.. Blood pressure 145/93, respirations 23, heart rate 101. White blood cell count 13.1 was 0% eosinophils. COVID, influenza, RSV RT PCR assay negative.Patient had increased work of breathing with diminished breath sounds and prolonged expiratory phase the with a blood gas on 80% of 7.33/ 43/128. Patient was treated with BiPAP, Solu-Medrol, ceftriaxone, azithromycin, metronidazole and bronchodilators and admitted to the floor. 09/17/2025: Patient was off the BiPAP on 5 L nasal cannula her breathing had improved. Her cough had Improved. 09/18/2025 patient was requiring 2 L nasal cannula, still had shortness of breath, had some panic attacks earlier today and takes Xanax usually. She had dyspnea on exertion. 09/19/2025: Patient still feels short of breath. Remained on 2 L. Cough was present. No wheezing. 09/20/2025: Patient had worsening wheezing and shortness of breath. I treated her as above. BNP Has increased from 171 on 09/16/2025 to 611 today. Procalcitonin 0.0. CRP is unchanged from 09/16/2025 at less than 0.5. Later in the day patient had an echocardiogram: LVEF 65-70%. Grade 1 diastolic dysfunction. Mild aortic valve sclerosis. Trace aortic valve regurgitation. Moderate tricuspid valve regurgitation with a PASP of 43. Normal right ventricular size and function. Normal left atrial size. Normal right atrial size. Later in the day CT angiogram of the chest was negative for PE, severe panlobular emphysema, right lower lobe endobronchial abnormality consistent with foreign body, polyp or mucus. No right lower lobe collapse. I reviewed with Radiology. 09/21/2025: Patient wore noninvasive ventilation throughout the day yesterday, came off for 2 hours later in the day and wore the noninvasive ventilator overnight. She took a noninvasive ventilation off for the last hour and a half and said that she is breathing better than yesterday. Her cough is worse. Her phlegm is clear. When I enter the room she was on 2 L nasal cannula saturations 97%. I decreased her to 1 L nasal cannula and her saturations were 93%. White blood cell count is 13.0, creatinine 0.59. Yesterday she was -701 mL. Since admission she is positive 2.8 L. Her weight today is 54.3. Patient had a chest x-ray today with no focal infiltrates or infusions. Plan for bronchoscopy later today. Later in the day patient underwent bronchoscopy with extraction of corn kernel from the right lower lobe. 09/22/2025: Patient tells me that she is breathing normal with no rest shortness of breath. Patient has not walked around the room. Her cough has improved but is persistent. She has some clear phlegm with no hemoptysis. when I enter the room she was on 2 L nasal cannula saturations 97%. I placed her on room air and after 26 minutes her saturations were 92%. White blood cell count 9.1, creatinine 0.56. Her weight today is 54.4 kg. Data: 09/20/25: EXAMINATION: CTA chest PE protocol INDICATION: Rule out PE COMPARISON: September 17, 2025 FINDINGS: No pulmonary emboli or thoracic aortic aneurysm/dissection. Heart size normal. Trace pericardial effusion. Coronary artery calcifications noted. Moderate to severe diffuse centrilobular emphysematous changes of the lungs. 10 mm mucus appearing focus or sludge ball is present in the right lower lobe bronchus, image 60 series 4. Small amount of mucus also present in the tracheal air column. Airways otherwise are patent. No consolidation effusion or pneumothorax. No focal acute process seen in the visualized portions of the upper abdomen. Cholecystectomy clips. Degenerative changes throughout the bones. IMPRESSION: 1. No pulmonary emboli or thoracic aortic aneurysm/dissection. 2. Severe emphysematous changes in the lungs. 10 mm nonobstructing soft tissue focus in the right lower lobe bronchus probably representing mucoid sludge ball. Polypoid lesion however is not excluded. 09/20/25: Echo Summary 1. Definity contrast administered improved wall motion interpretation. 2. Left ventricular chamber dimension is normal. 3. Left ventricular systolic function is normal, estimated at 65-70. 4. The left ventricular diastolic function is grade I diastolic dysfunction. 5. E/e' 12 is mildly elevated. 6. There is mild aortic valve sclerosis. 7. There is trace aortic valve regurgitation. 8. There is moderate tricuspid valve regurgitation. 9. Mild pulmonary hypertension, estimated pulmonary arterial systolic pressure is 43 mmHg. Right Ventricle Right ventricular chamber dimension is normal. Right ventricular systolic function is normal. Left Atria Left atrial chamber dimension is normal. Right Atria Right atrial chamber dimension is normal. 09/17/25: EXAMINATION:CT diagnostic chest wo con INDICATION: Shortness of breath COMPARISON: December 23, 2013 FINDINGS: Advanced emphysematous changes throughout the lungs noted with no consolidation effusion or pneumothorax. Mild scattered interstitial prominence noted but no evidence of architectural distortion, bronchiectasis, air cysts formation or advanced fibrotic changes. Scattered benign-appearing calcified small granulomas nodules. Heart and great vessels normal size with no bulky lymphadenopathy. Central large airways patent. The bones appear intact. No acute abnormality seen in the visualized portions of the upper chest or extrathoracic soft tissues. IMPRESSION: 1. Advanced emphysematous changes in the lungs. 2. No gross acute intrathoracic process identified. Review of Systems Constitutional: Constitutional: Reports no additional constitutional complaints Eyes: Eyes: Reports no additional eye complaints ENT: Reports system reviewed and no additional complaints, except as documented Cardiovascular: Cardiovascular: Reports no additional cardiovascular complaints Respiratory: Respiratory: Reports no additional respiratory complaints Gastrointestinal: Gastrointestinal: Reports no additional gastrointestinal complaints Musculoskeletal: Musculoskeletal: Reports no additional musculoskeletal complaints Neurologic: Reports system reviewed and no additional complaints, except as documented Psychiatric: Psychiatric: Reports no additional psychiatric complaints Endocrine: Endocrine: Reports no additional endocrine complaints Hematologic/Lymphatic: Hematologic/Lymphatic: Reports no additional hematologic/lymphatic complaints Allergic/Immunologic: Allergic/Immunologic: Reports no additional allergic/immunologic complaints Exam Const: General: cooperative, healthy appearing and in distress Orientation/consciousness: oriented to person, oriented to place and oriented to time Other: patient was in distress and placed on Noninvasive ventilation emergently. HENMT: Head: normal to inspection Ears: hearing grossly normal bilaterally Eyes: General: appearance normal, both eyes and all related structures Neck: Neck: normal visual inspection Chest: Chest palpation & inspection: normal inspection of the chest Resp: Effort & Inspection: normal respiratory effort and able to speak in complete sentences Auscultation: no crackles, no rales, no rhonchi, no wheezes and lung sounds not diminished Cardio: Jugular venous distension: no JVD GI: Inspection: normal to inspection Skin: General skin exam: normal color Neuro: General: oriented to person, oriented to place and oriented to time Extrem: General: normal to inspection and no edema Psych: Appearance: grossly normal Objective Data Vital Signs Vital Signs: Vital Signs - 24 hr 09/21/25 09:44 09/21/25 10:00 09/21/25 11:25 Temperature Pulse Rate 81 103 H 65 Respiratory Rate 20 Blood Pressure Pulse Oximetry 100 Oxygen Delivery BiPAP Oxygen Flow Rate Fraction of Inspired Oxygen 09/21/25 11:25 09/21/25 11:32 09/21/25 11:36 Temperature 36.0 C L Pulse Rate 65 79 79 Respiratory Rate 20 24 H 23 H Blood Pressure 145/82 H Pulse Oximetry 100 Oxygen Delivery Oxygen Flow Rate Fraction of Inspired Oxygen 09/21/25 12:00 09/21/25 12:00 09/21/25 13:37 Temperature Pulse Rate 70 Respiratory Rate Blood Pressure Pulse Oximetry 99 96 Oxygen Delivery BiPAP Nasal Cannula Oxygen Flow Rate 3 Fraction of Inspired Oxygen 32 09/21/25 13:44 09/21/25 14:30 09/21/25 14:40 Temperature 36.6 C Pulse Rate 102 H 102 H 104 H Respiratory Rate 26 H 26 H 24 H Blood Pressure 150/80 H 152/73 H 162/87 H Pulse Oximetry 94 98 99 Oxygen Delivery Nasal Cannula Simple Face Mask Simple Face Mask Oxygen Flow Rate 1 8 6 Fraction of Inspired Oxygen 09/21/25 14:50 09/21/25 15:00 09/21/25 15:10 Temperature Pulse Rate 112 H 111 H 96 Respiratory Rate 30 H 32 H 25 H Blood Pressure 159/91 H 155/91 H 150/68 H Pulse Oximetry 99 99 95 Oxygen Delivery Room Air Nasal Cannula Nasal Cannula Oxygen Flow Rate 3 3 Fraction of Inspired Oxygen 09/21/25 15:20 09/21/25 16:00 09/21/25 16:00 Temperature 36.6 C Pulse Rate 100 99 Respiratory Rate 20 24 H Blood Pressure 157/83 H 153/74 H Pulse Oximetry 95 94 93 Oxygen Delivery Nasal Cannula Nasal Cannula Oxygen Flow Rate 1 3 Fraction of Inspired Oxygen 09/21/25 16:00 09/21/25 16:51 09/21/25 16:55 Temperature Pulse Rate 106 H 100 98 Respiratory Rate 18 18 Blood Pressure Pulse Oximetry Oxygen Delivery Oxygen Flow Rate Fraction of Inspired Oxygen 09/21/25 18:00 09/21/25 20:00 09/21/25 20:00 Temperature 36.6 C Pulse Rate 104 H 105 H 65 Respiratory Rate 18 Blood Pressure 122/57 L Pulse Oximetry 90 Oxygen Delivery Oxygen Flow Rate Fraction of Inspired Oxygen 09/21/25 20:34 09/21/25 21:05 09/21/25 21:07 Temperature Pulse Rate 105 H 83 Respiratory Rate 18 18 Blood Pressure Pulse Oximetry 90 98 Oxygen Delivery Nasal Cannula High Flow Nasal Cannula Oxygen Flow Rate 4 2 Fraction of Inspired Oxygen 09/21/25 21:10 09/21/25 22:00 09/22/25 00:00 Temperature 36.6 C Pulse Rate 85 94 92 Respiratory Rate 18 18 Blood Pressure 155/68 H Pulse Oximetry 98 Oxygen Delivery Oxygen Flow Rate Fraction of Inspired Oxygen 09/22/25 00:00 09/22/25 00:20 09/22/25 00:26 Temperature Pulse Rate 83 84 87 Respiratory Rate 24 H 22 H Blood Pressure Pulse Oximetry Oxygen Delivery Oxygen Flow Rate Fraction of Inspired Oxygen 09/22/25 00:33 09/22/25 01:49 09/22/25 04:00 Temperature Pulse Rate 92 71 63 Respiratory Rate 18 Blood Pressure Pulse Oximetry 98 Oxygen Delivery Nasal Cannula Oxygen Flow Rate 4 Fraction of Inspired Oxygen 09/22/25 04:00 09/22/25 04:00 09/22/25 04:30 Temperature 36.8 C Pulse Rate 97 97 63 Respiratory Rate 20 20 20 Blood Pressure 148/68 H Pulse Oximetry 97 97 98 Oxygen Delivery Nasal Cannula Nasal Cannula Oxygen Flow Rate 3 2 Fraction of Inspired Oxygen 09/22/25 04:41 09/22/25 04:48 09/22/25 05:27 Temperature Pulse Rate 87 89 87 Respiratory Rate 18 18 Blood Pressure Pulse Oximetry Oxygen Delivery Oxygen Flow Rate Fraction of Inspired Oxygen 09/22/25 07:23 09/22/25 07:27 09/22/25 07:28 Temperature Pulse Rate 89 87 Respiratory Rate 17 18 Blood Pressure Pulse Oximetry 98 Oxygen Delivery High Flow Therapy with Na Oxygen Flow Rate 2 Fraction of Inspired Oxygen 09/22/25 07:39 09/22/25 09:08 Temperature 36.6 C Pulse Rate 98 104 H Respiratory Rate 20 Blood Pressure 148/76 H Pulse Oximetry 94 Oxygen Delivery Oxygen Flow Rate Fraction of Inspired Oxygen Intake/Output Intake/Output: Intake & Output 09/19/25 09/20/25 09/21/25 09/22/25 23:59 23:59 23:59 23:59 Intake Total 980 850 650 630 Output Total 1000 1551 400 500 Balance -20 -701 250 130 Meds/Results Medications: Active Medications Generic Name Dose Route Start Last Admin Trade Name Freq PRN Reason Stop Dose Admin Acetaminophen 650 mg 09/17/25 15:36 09/19/25 17:18 Acetaminophen 325 Mg Tablet PO 650 mg Q6H PRN Administration Mild Pain (1-3) or Fever Albuterol/Ipratropium 3 ml 09/19/25 20:00 09/22/25 07:22 Ipratropium 0.5 Mg/Albuterol Sulfate 2.5 Mg (Base) Ampul.Neb 3 Ml INHALATION 3 ml Q4HRT VINCENT Administration Alprazolam 0.25 mg 09/20/25 14:00 09/22/25 09:19 Alprazolam (*Crx) 0.25 Mg Tablet BY MOUTH 0.125 mg Q4H PRN Administration Anxiety Bupropion HCl 150 mg 09/21/25 09:00 09/22/25 09:08 Bupropion Hcl Xl (24 Hr) 150 Mg Tabcr PO 150 mg QAM VINCENT Administration Enoxaparin Sodium 40 mg 09/21/25 09:00 09/22/25 09:06 Enoxaparin 40 Mg/0.4 Ml Syringe SUB-Q Not Given DAILY VINCENT Meropenem 1 gm/ Sodium 100 mls @ 200 mls/hr 09/20/25 09:00 09/22/25 09:08 Chloride IVPB 200 mls/hr Q8H VINCENT Administration Ibuprofen 600 mg 09/17/25 20:24 09/20/25 18:24 Ibuprofen 600 Mg Tablet PO 600 mg Q6H PRN Administration Mild Pain (1-3) or Fever Levalbuterol HCl 1 puff 09/18/25 08:20 Levalbuterol Hfa (*Sp) 15 Gm Inhaler INHALATION PRN PRN Shortness Of Breath Levothyroxine Sodium 75 mcg 09/18/25 06:30 09/22/25 05:33 Levothyroxine Sodium 75 Mcg Tablet PO 75 mcg DAILY@0630 VINCENT Administration Methylprednisolone Sodium Succinate 60 mg 09/20/25 00:00 09/22/25 05:32 Methylprednisolone Sod Succ 125 Mg Vial IV PUSH 60 mg Q6HR VINCENT Administration Metoprolol Succinate 50 mg 09/18/25 09:00 09/22/25 09:08 Metoprolol Succinate Ext Rel 50 Mg Tabcr PO 50 mg QAM VINCENT Administration Miscellaneous Information 1 each 09/18/25 00:01 09/22/25 00:34 Darifenacin Is Nonformulary. Can She Use Home Supply? Or We Have Ditropan Xl 5mg Daily XX 10/18/25 00:00 Not Given [facility] Miscellaneous Information 1 each 09/18/25 00:01 09/22/25 00:34 May Use Home Systane Eye Drops Send To Pharmacy For Verification XX 10/18/25 00:00 Not Given CLARIFY VINCENT Non-Formulary Medication 15 mg 09/18/25 09:00 Darifenacin PO 10/18/25 08:59 DAILY VINCENT Non-Formulary Medication 1 drop 09/18/25 17:00 Systane EACH EYE 10/18/25 16:59 TID VINCENT Pantoprazole Sodium 20 mg 09/18/25 09:00 09/22/25 09:08 Pantoprazole Sod Sesquihydrate 20 Mg Tab PO 20 mg QAM VINCENT Administration Prednisolone Acetate 1 drop 09/18/25 09:00 09/22/25 09:08 Prednisolone Acetate 1% Ophth 5 Ml LEFT EYE 1 drop TID VINCENT Administration Roflumilast 500 mcg 09/18/25 09:00 09/22/25 09:07 Roflumilast 500 Mcg Tablet PO 500 mcg DAILY VINCENT Administration Saccharomyces Boulardii 250 mg 09/19/25 13:00 09/22/25 09:07 Saccharomyces Boulardii 250 Mg Capsule PO 250 mg TID VINCENT Administration Radiology Results: ITS Impressions Chest CT 09/17/25 08:37 IMPRESSION: 1. Advanced emphysematous changes in the lungs. 2. No gross acute intrathoracic process identified. NOTE: Preliminary radiology report provided by [facility] radiologist. Chest CTA 09/20/25 14:57 IMPRESSION: 1. No pulmonary emboli or thoracic aortic aneurysm/dissection. 2. Severe emphysematous changes in the lungs. 10 mm nonobstructing soft tissue focus in the right lower lobe bronchus probably representing mucoid sludge ball. Polypoid lesion however is not excluded. Chest X-Ray 09/21/25 14:46 IMPRESSION: 1. Mild discoid atelectasis in the bilateral lower lungs. Labs Labs: Laboratory Results - last 24 hr 09/21/25 09/22/25 06:22 04:21 WBC 9.1 RBC 3.71 L Hgb 11.8 L Hct 36.2 L MCV 97.6 MCH 31.8 MCHC 32.6 RDW 12.8 Plt Count 263 MPV 8.9 Immature Gran % (Auto) 1.0 H Neut % (Auto) 89.9 H Lymph % (Auto) 4.6 L [place] % (Auto) 4.3 Eos % (Auto) 0.0 Baso % (Auto) 0.2 Lymph # (Auto) 0.42 L [place] # (Auto) 0.4 Eos # (Auto) 0.0 Baso # (Auto) 0.0 Abs Immat Gran (auto) 0.09 H Absolute Neuts (auto) 8.2 H Absolute Nucleated RBC 0.000 Nucleated RBC % 0.0 Sodium 140 Potassium 3.1 L Chloride 105 Carbon Dioxide 34 H Anion Gap 1 L BUN 35 H Creatinine 0.56 L Estim Creat Clear Calc 64 Estimated GFR > 60 Glucose 121 H Calcium 8.3 L Magnesium 2.3 Total Bilirubin 0.5 AST 26 ALT 28 Alkaline Phosphatase 52 Total Protein 5.6 L Albumin 3.2 L [id number] 138
--- NOTE | 2025-09-22 10:57 | P.DS_ITS ---
DS: Admitting Diagnosis Discharge Date 09/22/2025 Admitting Diagnosis Shortness of breath DS: Discharge Diagnosis Discharge Diagnosis (1) Acute respiratory failure: Code(s): J96.00 - Acute respiratory failure, unspecified whether with hypoxia or hypercapnia Status: Acute (2) Aspiration into lower respiratory tract: Code(s): T17.800A - Unspecified foreign body in other parts of respiratory tract causing asphyxiation, initial encounter; W44.9XXA - Unspecified foreign body entering into or through a natural orifice, initial encounter Status: Acute (3) COPD (chronic obstructive pulmonary disease): Code(s): J44.9 - Chronic obstructive pulmonary disease, unspecified Status: Acute (4) Pneumonitis: Code(s): J98.4 - Other disorders of lung Status: Acute DS: Summary Hospital Course Hospital Course: 70-year-old female with PMH COPD, anxiety on low-dose Xanax p.r.n. presents to [facility] ER on 09/16/2025 shortness of breath. The patient lives with her and is in generally good health, her COPD is controlled. On 09/15 the patient was eating and choked on corn. She developed extreme shortness of breath, wheezing, cough. She had an anxiety attack. It improved somewhat and the patient went to sleep, she woke up and her breathing was still labored. She did not have cough or as much wheezing. Patient arrived by EMS on CPAP, she had tachypnea, labored breathing. Blood pre ssure 145/93. ABG on FiO2 80% showing pH 7.32, pCO2 43, PO2 127, troponin 0.012, procalcitonin 0, urinalysis unremarkable, quad viral screen unremarkable. WBC [address]. CT chest without contrast shows pattern of interstitial lung disease, no consolidation, emphysematous changes, small pericardial effusion. Patient was given DuoNebs, Solu-Medrol, 30 cc/kilogram normal saline bolus, ceftriaxone, azithromycin. Metronidazole. Serial troponin remained negative Acute respiratory distress needing BiPAP support was eventually tapered off however was still requiring oxygen supplementation and later worsened requiring AVAPS/BiPAP. Repeat evaluation was performed with CTA chest to rule out PE on 09/20/2025 which revealed no PE however had right lower bronchus possible mass. She underwent bronchoscopy on 09/21/2025 with removal of endobronchial yellow mass likely of foreign body Patient significantly improved after this. Patient required no oxygen requirement subsequently and deemed stable for discharge home. She was also treated with broad-spectrum antibiotics during the hospital stay initially. She was treated for COPD exacerbation with steroid initially. Aspiration pneumonitis CT chest with no findings and pneumonia. Continue on ceftriaxone azithromycin and Flagyl as ordered. Which has been tapered off as noted above Anxiety disorder/panic attacks on Xanax p.r.n. on bupropion Hypothyroidism Hypertension GERD Code status full code DVT prophylaxis SCDs switch to lovenox Time Spent with Patient Time attestation: Total time spent providing and/or coordinating discharge services: 45 minutes Exam Narrative: CONST: Alert and oriented x3 not in acute distress. HENMT: Head is normocephalic and atraumatic. EYES: No scleral icterus. No conjunctival injection or pallor. PERRL. RESP: Lungs clear to auscultation No respiratory distress CARDIO: Regular rate Regular rhythm. 2+ DP and radial pulses bilaterally. GI: Nondistended. No tenderness to palpation. Soft. : No CVA tenderness to palpation. SKIN: No rashes or lesions noted on exposed skin. NEURO: Oriented x3. Moves all extremities. EXTREM/MSK/BACK: No pedal edema. PSYCH: Normal mood DS: Data Data Completed and Pending Pending studies at discharge: Pending at discharge 09/21/25 14:28 Surgical [PTH] Routine Labs on day of discharge: Labs from last 24 hours 09/22/25 09/21/25 04:21 06:22 WBC 9.1 RBC 3.71 L Hgb 11.8 L Hct 36.2 L MCV 97.6 MCH 31.8 MCHC 32.6 RDW 12.8 Plt Count 263 MPV 8.9 Immature Gran % (Auto) 1.0 H Neut % (Auto) 89.9 H Lymph % (Auto) 4.6 L Pitkin % (Auto) 4.3 Eos % (Auto) 0.0 Baso % (Auto) 0.2 Lymph # (Auto) 0.42 L Pitkin # (Auto) 0.4 Eos # (Auto) 0.0 Baso # (Auto) 0.0 Abs Immat Gran (auto) 0.09 H Absolute Neuts (auto) 8.2 H Absolute Nucleated RBC 0.000 Nucleated RBC % 0.0 Sodium 140 Potassium 3.1 L Chloride 105 Carbon Dioxide 34 H Anion Gap 1 L BUN 35 H Creatinine 0.56 L Estim Creat Clear Calc 64 Estimated GFR > 60 Glucose 121 H Calcium 8.3 L Magnesium 2.3 Total Bilirubin 0.5 AST 26 ALT 28 Alkaline Phosphatase 52 Total Protein 5.6 L Albumin 3.2 L [id number] 138 Preliminary micro results at discharge 09/16/25 23:46 Blood Culture - Preliminary Blood 09/16/25 23:49 Blood Culture - Preliminary Blood Imaging Radiologist's impression: ITS Impressions Chest X-Ray 09/17/25 08:22 IMPRESSION: 1. Chronic linear discoid atelectasis/scarring the right mid and left lower lung zones. Chest CT 09/17/25 08:37 IMPRESSION: 1. Advanced emphysematous changes in the lungs. 2. No gross acute intrathoracic process identified. NOTE: Preliminary radiology report provided by [facility] radiologist. Chest X-Ray 09/19/25 13:40 IMPRESSION: 1. No gross interval change in bibasilar markings which could represent chronic interstitial lung disease versus patchy areas of developing pneumonitis/pneumonia. Chest CTA 09/20/25 14:57 IMPRESSION: 1. No pulmonary emboli or thoracic aortic aneurysm/dissection. 2. Severe emphysematous changes in the lungs. 10 mm nonobstructing soft tissue focus in the right lower lobe bronchus probably representing mucoid sludge ball. Polypoid lesion however is not excluded. Chest X-Ray 09/21/25 08:52 Impression: No acute cardiopulmonary abnormality. Chest X-Ray 09/21/25 14:46 IMPRESSION: 1. Mild discoid atelectasis in the bilateral lower lungs. Discharge Plan Discharge Attending physician on discharge: Robin Logan Consulting providers: Jorge Alberto Shafer Discharging Clinician: Robin Logan Anticipated Discharge Date/Time: 09/22/25 11:01 Patient Disposition: Home Activity: as tolerated Diet: regular Discharge Instructions: Continue to measure home pulse oximetry as needed Patient Instructions: Antibiotic Form Patient Language: Moz[place]ican Stand Alone Forms: General Discharge Information Follow-up/Referrals: Troy Toro MD [Primary Care Provider, [facility]] - 1 Week Discharge Medications: New prednisone 20 mg tablet 40 mg PO DAILY 5 Days Qty: 10 0RF Rx Instructions: if symptoms worsen levofloxacin 750 mg tablet 750 mg PO DAILY Qty: 2 0RF Continued omeprazole 20 mg tablet,delayed release (DR/EC) 20 mg PO DAILY alprazolam 0.25 mg tablet 0.25 mg PO TID prednisolone acetate 1 % drops,suspension 1 drp LEFT EYE TID bupropion HCl 150 mg tablet extended release 24 hr 150 mg PO DAILY darifenacin 15 mg tablet extended release 24 hr 15 mg PO DAILY levalbuterol tartrate 45 mcg/actuation HFA aerosol inhaler 1 puff INHALATION PRN PRN (Reason: shortness of breath) metoprolol succinate 50 mg tablet extended release 24 hr 50 mg PO DAILY roflumilast 500 mcg tablet 500 mcg PO DAILY tiotropium bromide [Spiriva with HandiHaler] 18 mcg capsule, w/inhalation device 1 cap INHALATION PRN PRN (Reason: SOB) fluticasone propion-salmeterol [Advair Diskus] 500-50 mcg/dose blister with device 1 inh INHALATION Q12H Qty: 180 3RF levothyroxine [Synthroid] 75 mcg tablet 75 mcg PO DAILY Qty: 90 3RF Rx Instructions: NAME BRAND Discontinued prednisone 20 mg tablet 20 mg PO DAILY tretinoin 0.05 % cream 1 applic TOPICAL DAILY azithromycin [Zithromax Z-Joaquín] 250 mg tablet See Rx Instructions .ROUTE .COMPLEX Qty: 6 0RF Rx Instructions: For 250 mg dose pack: take 500 mg today (day 1), then 250 mg for 4 days (days 2-5) Date of admission: 09/17/25 08:04 Primary Care Provider: Troy Toro Admitting Provider: Juliana Barrett Attending physician on admission: Juliana Barrett Condition: Improved
[2025-09-22] MEDS: ACETAMINOPHEN 325 MG TABLET 650 MG PO (12:29)
--- NOTE | 2025-09-24 12:01 | SUR.OPER ---
09/24/[address] Shafer per his request to show the family of the foreign body that was removed from the patient. Dr. Shafer set the specimen down somewhere so it was never sent to lab. Spoke with Dr. Shafer this am to inquire what he did with the foreign body. He said he set it down somewhere but we were unable to locate it within the department. He instructed us to cancel the order. Karen notified in pathology.
== END 2025-09-22 12:48 | disposition home or self-care (01) | DRG 205 ==
LOC: ANHED 09-17 03:33 → ANHIMU 09-17 03:50 → ANH3MEDSUR 09-18 10:24 → ANHIMU 09-21 08:48 → ANH3MEDSUR 09-24 11:17 → ANHIMU 09-24 11:17
PROVIDERS: Internal Medicine Pulmonary Disease; Nurse Practitioner Adult Health; Registered Nurse; Admitting Provider General Practice; Emergency Provider Student in an Organized Health Care Education/Training Program; PCP Family Medicine; Visit Provider Internal Medicine
PROC: 0BJ08ZZ Inspection of Tracheobronchial Tree, Via Natural or Artificial Opening Endoscopic (ICD-10-PCS; CPT 31622; principal; 2025-09-21 14:00)
DX: T17.520A Food in bronchus causing asphyxiation, initial encounter (principal); J69.0 Pneumonitis due to inhalation of food and vomit; J96.01 Acute respiratory failure with hypoxia; J96.02 Acute respiratory failure with hypercapnia; J44.1 Chronic obstructive pulmonary disease with (acute) exacerbation; J44.0 Chronic obstructive pulmonary disease with (acute) lower respiratory infection; F41.0 Panic disorder [episodic paroxysmal anxiety]; I11.9 Hypertensive heart disease without heart failure; I51.89 Other ill-defined heart diseases; E03.9 Hypothyroidism, unspecified; K21.9 Gastro-esophageal reflux disease without esophagitis; G47.00 Insomnia, unspecified; E78.1 Pure hyperglyceridemia; M85.89 Other specified disorders of bone density and structure, multiple sites; E66.9 Obesity, unspecified; F32.A Depression, unspecified; I35.8 Other nonrheumatic aortic valve disorders; I35.1 Nonrheumatic aortic (valve) insufficiency; I36.1 Nonrheumatic tricuspid (valve) insufficiency; Z20.822 Contact with and (suspected) exposure to COVID-19; Z68.30 Body mass index [BMI] 30.0-30.9, adult; Z79.51 Long term (current) use of inhaled steroids; Z87.891 Personal history of nicotine dependence; Z86.16 Personal history of COVID-19
CPT/HCPCS: 0202U; 36415; 36600; 71045; 71250; 71275; 80053; 81001; 82805; 82948; 83605; 83690; 83735; 83880; 84145; 84443; 84484; 85018; 85025; 85610; 85730; 86140; 86738; 87040; 87070; 87449; 87493; 87637; 87899; 93005; 94002; 94003; 94640; 96365; 96367; 96374; 99285; A9270; C8929; G0378; J0330; J0456; J0696; J1836; J1938; J2003; J2185; J2250; J2704; J2919; J3360; J3373; J7030; J7040; J7050; J7120; J7512; Q9957; Q9967